=== PATIENT | male | born 1940 | race Caucasian/White ===

== ENCOUNTER → 2016-07-19 | Outpatient (CLI) | payer MEDICARE ==
[2016-07-19 10:42] LABS: Blood Urea Nitrogen 20 mg/dL (9-20); Non-African American GFR(MDRD) 58 (>60 ml/min/1.73 sqM)
--- NOTE | 2016-07-19 12:03 | CT ---
EXAMINATION TYPE: CT abdomen wo/w con DATE OF EXAM: 07/19/2016 11:24 AM COMPARISON: CT abdomen September 30, 2015. HISTORY: Patient has no complaints at time of study. Follow up study for known renal CA post ablatio n procedure. CT DLP: 1091.1 mGycm, Automated Exposure Control for Dose Reduction was Utilized. CONTRAST: CT scan of the abdomen is performed with oral and without and with IV Contrast, patient injected with 80 mL of Visipaque 320. FINDINGS: LUNG BASES: Degraded by motion artifact otherwise unremarkable. LIVER/GB: No significant abnormality is appreciated. PANCREAS: No significant abnormality is seen. SPLEEN: No significant abnormality is seen. ADRENALS: No significant abnormality is seen. KIDNEYS: There is stable 2 mm nonobstructing calculus lower pole level right kidney seen best on darrian nal image 97. Postcontrast images show corticomedullary uptake and excretion from both kidneys withou t evidence of hydronephrosis bilaterally. There are a few subcentimeter low dense lesions scattered t hroughout the left kidney felt stable presumed benign. At area of prior enhancing exophytic neoplasm there remains slightly more regular exophytic soft tissue measuring 2.3 x 2.0 cm on image 29 series 4 , no definitive enhancement is seen to suggest persistent vascular neoplasm. Findings are consistent with successful ablation response. Some nonenhanced or ischemic/infarcted cortex involving the lower pole of right kidney is noted. There is stable 1 cm simple appearing cyst superiorly anterior to this . BOWEL: No significant abnormality is seen. LYMPH NODES: No greater than 1cm abdominal lymph nodes are appreciated. OSSEOUS STRUCTURES: No significant abnormality is seen. OTHER: There is redemonstration of aortobiiliac graft partially imaged. There is redemonstration of [place] ventral wall hernia just left of midline on axial image 34 seri es 4 containing mesenteric fat felt stable. IMPRESSION: Interval ablation with persistent exophytic soft tissue lesion identified but no area of suspicious postcontrast enhancement to suggest residual vascular mass or neoplasm is consistent with successful ablation. Some adjacent cortical infarct is present as expected. No new mass or adenopathy is seen.
== END | disposition home or self-care (01) ==
LOC: RADCTMAIN 09:56
PROVIDERS: ATTEND Urology
DX: C64.1 Malignant neoplasm of right kidney, except renal pelvis (principal); Z98.890 Other specified postprocedural states
CPT/HCPCS: 82565; 84520; 74170; 36415; Q9967

== ENCOUNTER → 2016-10-19 | Outpatient (CLI) | payer MEDICARE ==
[2016-10-19 08:46] LABS: Blood Urea Nitrogen 19 mg/dL (9-20); Non-African American GFR(MDRD) >60 (>60 ml/min/1.73 sqM)
--- NOTE | 2016-10-19 09:33 | CT ---
EXAMINATION TYPE: CT abdomen wo/w con DATE OF EXAM: 10/19/2016 COMPARISON: CT abdomen September 18, 2016. HISTORY: Patient has no complaints at time of study. Follow up study for known renal mass. Patient has history of renal CA. Status post ablation. CT DLP: 1128 mGycm, Automated Exposure Control for Dose Reduction was Utilized. CONTRAST: CT scan of the abdomen is performed with oral and without and with IV Contrast, patient injected with 100 mL of Visipaque 320. FINDINGS: LUNG BASES: Mild bleb formation left lung base is present. LIVER/GB: No significant abnormality is appreciated. PANCREAS: No significant abnormality is seen. SPLEEN: No significant abnormality is seen. ADRENALS: No significant abnormality is seen. KIDNEYS: There is 2 mm nonobstructing calculus lower pole level right kidney on coronal image 63 nonc ontrast study redemonstrated. There is focal defect from ablation involving the posterior lower pole level right kidney. Lateral and inferior to this there is stable 2.3 x 2.0 cm heterogeneous hypodense nonenhancing exophytic lesion could reflect residual nonactive or treated tumor. There are additiona l subcentimeter low dense lesions scattered throughout both kidneys felt to reflect simple cysts. The re is symmetric cortical medullary uptake and excretion from both kidneys without evidence of hydrone phrosis bilaterally. There is stable right lower pole perinephric fat stranding. BOWEL: Normal-appearing appendix from cecum is seen. No suspicious small or large bowel dilatation is present. LYMPH NODES: No greater than 1cm abdominal lymph nodes are appreciated. OSSEOUS STRUCTURES: There is prominent multilevel lateral spurring in the right lower thoracic spine redemonstrated. OTHER: There is partial visualization of patent aortobiiliac graft. There is [place] ventral wall h ernia just left of midline containing fat and tiny mesenteric vessels extending anteriorly into the m id and right abdomen that is stable. IMPRESSION: Overall stable findings, ablation changes with scarring posterior lower pole level right kidney. Adjacent nonenhancing exophytic mass is consistent with successful ablation. No increasing si ze or enhancement is evident to suggest active or enlarging neoplasm.
== END | disposition home or self-care (01) ==
LOC: RADCTMAIN 07:44
PROVIDERS: ATTEND Urology
DX: C64.1 Malignant neoplasm of right kidney, except renal pelvis (principal); N28.89 Other specified disorders of kidney and ureter; Z98.890 Other specified postprocedural states
CPT/HCPCS: 82565; 84520; 74170; 36415; Q9967

== ENCOUNTER → 2018-01-31 | Outpatient (CLI) | payer MEDICARE ==
--- NOTE | 2018-01-31 13:58 | CT ---
EXAMINATION TYPE: CT abdomen wo/w con DATE OF EXAM: 01/31/2018 COMPARISON: 10/19/2016 INDICATION: malignant neoplasm of right kidney DLP: 935.5 mGycm, Automated exposure control for dose reduction was used. CONTRAST: 100 mL of Isovue 300. Study performed with Oral Contrast TECHNIQUE: Axial images were obtained from above the diaphragm to the pubic rami in the axial plane a t 5 mm thick sections. Reconstructed images are reviewed on the computer in the coronal plane. FINDINGS: Limited CT sections are obtained the lung bases. The lung bases are clear. CT ABDOMEN: There is a large anterior abdominal wall hernia containing mesenteric fat supra umbilical region with an opening 1.9 cm. Liver: Normal Spleen: Normal Pancreas: Normal Adrenal glands: The adrenal glands are normal. Gallbladder: Some layering sludge appears to be within the gallbladder. Kidneys: A low-density mass, some of which may contain fat type density, does not appear to be enhanc ing. Mass including the fat component measures 4.2 cm is at the posterior inferior right kidney. A 0. 2 cm nonobstructing calcification is at the inferior pole right kidney. No hydronephrosis is present . A 1.0 cm cyst measuring 6 Hounsfield units is within the posterior lateral left upper kidney. De layed images were obtained through the kidneys, which remain unremarkable. Aorta: Vascular calcification is within the aorta. There appears to be prior aneurysm repair with pa tent stents present. Inferior vena cava: Normal. Loops of bowel distended with oral contrast appear normal. Note is made of a normal appendix. IMPRESSIONS: 1. Mixed density structure extending from the inferior pole right kidney measures 4.2 cm in diameter . 2. Small nonobstructing renal stone inferior pole right kidney measuring 0.2 cm.
== END | disposition home or self-care (01) ==
LOC: RADCTMAIN 07:52
PROVIDERS: ATTEND Urology
DX: C64.1 Malignant neoplasm of right kidney, except renal pelvis (principal); N20.0 Calculus of kidney
CPT/HCPCS: 82565; 84520; 74170; 36415; Q9967

== ENCOUNTER → 2018-12-09 | Outpatient (CLI) | payer MEDICARE ==
--- NOTE | 2018-12-09 15:27 | CT ---
EXAMINATION TYPE: CT abdomen wo/w con DATE OF EXAM: 12/09/2018 COMPARISON: CT abdomen January 31, 2018 and older studies HISTORY: Renal cancer follow up. CT DLP: 887.5 mGycm, Automated Exposure Control for Dose Reduction was Utilized. CONTRAST: CT scan of the abdomen is performed with oral and without and with IV Contrast, patient injected with 80 mL of Isovue M300. FINDINGS: LUNG BASES: No significant abnormality is appreciated. LIVER/GB: Small dependent gallstones and/or gallbladder sludge remains present. PANCREAS: No significant abnormality is seen. SPLEEN: No significant abnormality is seen. ADRENALS: No significant abnormality is seen. KIDNEYS: Stable exophytic 4.3 cm ball-shaped lesion lower pole of the right kidney with fat and soft tissue density . This is at the site of prior neoplasm September 30, 2015. Stable 2 mm nonobstructing calcu dave lower pole of the right kidney coronal image 97. Stable subcentimeter lesion favor simple thin-wa lled cyst laterally in the mid to lower pole of the left kidney coronal image 82 confirm the axial im age 20 series 11. BOWEL: No significant abnormality is seen. PROSTATE/SEMINAL VESICLES: No gross abnormality seen. LYMPH NODES: No greater than 1cm abdominal or pelvic lymph nodes are appreciated. OSSEOUS STRUCTURES: No significant abnormality is seen. OTHER: There is redemonstration of aortobiiliac graft which appears patent. There is redemonstration of marked wall hernia containing fat and tiny mesenteric vessels axial image 35. IMPRESSION: Lower pole right kidney felt to reflect successfully treated neoplasm as the soft tissue component remains stable or diminished in size without suspicious enhancement since the postablation CT performed July 19, 2016. No new masses or hydronephrosis.
== END | disposition home or self-care (01) ==
LOC: RADCTMAIN 13:59
PROVIDERS: ATTEND Urology
DX: C64.1 Malignant neoplasm of right kidney, except renal pelvis (principal)
CPT/HCPCS: 82565; 84520; 74170; 36415; Q9967

== ENCOUNTER 2019-06-14 15:59 | Inpatient (IN) | payer MEDICARE ==
[2019-06-14] MEDS ORDERED: CALCIUM GLUCONATE 1 GM in SODIUM CHLORIDE 0.9% 100 ML IVPB STA (16:07)
[2019-06-14] MEDS ORDERED: ATROPINE SULFATE 0.1 MG/ML 10ML SYRINGE IV STA (16:08)
[2019-06-14] MEDS ORDERED: ATROPINE SULFATE 0.1 MG/ML 10ML SYRINGE ONE (16:09)
[2019-06-14 16:11] LABS: Glucose,Whole Blood 114 mg/dL (75-99)
[2019-06-14] MEDS ORDERED: DOPamine DRIP 800 MG in DEXTROSE/WATER 1 250ML.BAG IV ONE (16:27)
[2019-06-14] MEDS ORDERED: SODIUM CHLORIDE 0.9% 1,000 ML IV STA (16:28)
[2019-06-14 16:46] LABS: Basophils # (A) 0.2 k/uL (0-0.2); Basophils % (A) 1 %; Eosinophils # (A) 0.1 k/uL (0-0.7); Eosinophils % (A) 0 %; HCT 43.3 % (39.0-53.0); Lymphocytes # (A) 0.7 k/uL (1.0-4.8); Lymphocytes % (A) 4 %; MCH 35.1 pg (25.0-35.0); MCHC 32.4 g/dL (31.0-37.0); MCV 108.3 fL (80.0-100.0); Macrocytosis Moderate; Mean Platelet Volume 9.6; Monocytes # (A) 0.5 k/uL (0-1.0); Monocytes % (A) 3 %; Neutrophils # (A) 15.8 k/uL (1.3-7.7); Neutrophils % (A) 91 %; Platelet Count 172 k/uL (150-450); RBC 3.99 m/uL (4.30-5.90); RDW 12.7 % (11.5-15.5); WBC 17.4 k/uL (3.8-10.6)
[2019-06-14 16:47] LABS: Albumin 3.9 g/dL (3.5-5.0); Calcium 9.6 mg/dL (8.4-10.2); Magnesium 2.7 mg/dL (1.6-2.3); Potassium 5.1 mmol/L (3.5-5.1); Total Bilirubin 0.8 mg/dL (0.2-1.3)
--- NOTE | 2019-06-14 16:51 | ED ---
General Adult HPI - General Chief complaint: Shortness of Breath Stated complaint: SOB Source: EMS Mode of arrival: EMS Limitations: no limitations - History of Present Illness Initial comments: Dictation was produced using [employer] dictation software. please excuse any gramma tical, word or spelling errors. Chief Complaint: 79-year-old male past medical history of COPD and abdominal aortic aneurysm presents with shortness of breath and dizziness. History of Present Illness: Patient is 79-year-old male who presents today with feeling short of breath and dizzy. Patient states he feels "Punky." He reports that his symptoms have been ongoing for the last 2-3 days. He did see his primary care doctor and was discharged. Patient denies any pain symptoms. D enies any strokelike symptoms. As for short of breath. He reports he has a history of COPD and previous history of smoking. The ROS documented in this emergency department record has been reviewed and confirmed by me. Those systems with pertinent positive or negative responses have been documented in the HPI. All other systems are other negative and/or noncontributory. PHYSICAL EXAM: General Impression: Alert and oriented x3, pale HEENT: Normocephalic atraumatic, extra-ocular movements intact, pupils equal and reactive to light bilaterally, dry mucous membranes Cardiovascular: Heart regular rate and rhythm, S1&S2 audible, no murmurs, rubs or gallops Chest: Diffuse lung wheeze Abdomen: Bowel sounds present, abdomen soft, non-tender, non-distended, no organomegaly Musculoskeletal: Pulses present and equal in all extremities, weak and thready pulses, no peripheral edema Motor: no focal deficits noted Neurological: CN II-XII grossly intact, no focal motor or sensory deficits noted Skin: Intact with no visualized rashes Psych: Normal affect and mood ED course: 79-year-old male presents with generalized weakness. Vital signs upon arrival shows heart rate of 34, respiratory rate of 26. Blood pressure upon arrival taken in triage was 95/84. Patient was moved immediately into resuscitation bay. 2 large-bore IVs were placed. Patient was given supplemental oxygen in the form of 15 L nonrebreather. Physical examination showed bradycardic male with diffuse lung wheeze. [id number] bedside ultrasound showed signs of fluid overload. EKG was suggestive of complete heart block. Cardiac pads are placed. 2 large-bore IVs were placed. Patient was given some atropine and calcium gluconate. Cardiology was contacted immediately for emergent placement of pacemaker or IV pacing. Patient observed in emergency department resuscitation bay and found to have his heart rate transiently dipping down into 15 bpm. Discussed patient case with Dr. Charlton of cardiology who requested that patient be started on dopamine infusion. Ultrasound IV was placed and 18-gauge in the right upper extremity. She disposition to cardiac Toggler for further care and likely pacemaker versus transvenous pacemaker. Discussed patient care Dr. Hamilton of the ICU who requests that arterial blood gas be performed. Discussed patient case with [facility] physician group Dr. Tamayo who is willing to accept patients care.Laboratory evaluation obtained leukocytosis 17.4. Metabolic panel shows signs of acute kidney injury. This likely secondary to prerenal azotemia. Troponin elevated at 0.060. X-ray shows mild heart failure.f EKG interpretation: Third-degree heart block, with widened QRS - Related Data Allergies Allergy/AdvReac Type Severity Reaction Status Date / Time No Known Allergies Allergy Verified 06/14/19 16:00 Review of Systems ROS Statement: Those systems with pertinent positive or pertinent negative responses have been documented in the HPI. ROS Other: All systems not noted in ROS Statement are negative. Past Medical History Past Medical History: Unable to Obtain, COPD Additional Past Medical History / Comment(s): AAA History of Any Multi-Drug Resistant Organisms: None Reported Past Surgical History: Unable to Obtain, Joint Replacement Past Psychological History: No Psychological Hx Reported Smoking Status: Current every day smoker Past Alcohol Use History: None Reported Past Drug Use History: None Reported General Exam Limitations: no limitations Course Vital Signs 06/14/19 16:00 Temperature 98 F Pulse Rate 34 L Respiratory 26 H Rate Blood Pressure 95/84 Medical Decision Making - Lab Data Result diagrams: 06/14/19 16:14 06/14/19 16:14 Lab Results 06/14/19 06/14/19 06/14/19 Range/Units 16:08 16:14 16:14 WBC 17.4 H (3.8-10.6) k/uL RBC 3.99 L (4.30-5.90) m/uL Hgb 14.0 (13.0-17.5) gm/dL Hct 43.3 (39.0-53.0) % MCV 108.3 H (80.0-100.0) fL MCH 35.1 H (25.0-35.0) pg MCHC 32.4 (31.0-37.0) g/dL RDW 12.7 (11.5-15.5) % Plt Count 172 (150-450) k/uL Neutrophils % 91 % Lymphocytes % 4 % Monocytes % 3 % Eosinophils % 0 % Basophils % 1 % Neutrophils # 15.8 H (1.3-7.7) k/uL Lymphocytes # 0.7 L (1.0-4.8) k/uL Monocytes # 0.5 (0-1.0) k/uL Eosinophils # 0.1 (0-0.7) k/uL Basophils # 0.2 (0-0.2) k/uL Macrocytosis Moderate PT (9.0-12.0) sec INR (<1.2) APTT (22.0-30.0) sec Sodium 138 (137-145) mmol/L Potassium 5.1 (3.5-5.1) mmol/L Chloride 107 (98-107) mmol/L Carbon Dioxide 23 (22-30) mmol/L Anion Gap 8 mmol/L BUN 61 H (9-20) mg/dL Creatinine 1.34 H (0.66-1.25) mg/dL Est GFR (CKD-EPI)AfAm 59 (>60 ml/min/1.73 sqM) Est GFR (CKD-EPI)NonAf 51 (>60 ml/min/1.73 sqM) Glucose 136 H (74-99) mg/dL POC Glucose (mg/dL) 114 H (75-99) mg/dL POC Glu [employer] Architect ID Teodora Finley Calcium 9.6 (8.4-10.2) mg/dL Magnesium 2.7 H (1.6-2.3) mg/dL Total Bilirubin 0.8 (0.2-1.3) mg/dL AST 44 (17-59) U/L ALT 102 H (4-49) U/L Alkaline Phosphatase 91 (38-126) U/L Troponin I (0.000-0.034) ng/mL Total Protein 7.0 (6.3-8.2) g/dL Albumin 3.9 (3.5-5.0) g/dL TSH 2.110 (0.465-4.680) mIU/L 06/14/19 06/14/19 Range/Units 16:14 16:14 WBC (3.8-10.6) k/uL RBC (4.30-5.90) m/uL Hgb (13.0-17.5) gm/dL Hct (39.0-53.0) % MCV (80.0-100.0) fL MCH (25.0-35.0) pg MCHC (31.0-37.0) g/dL RDW (11.5-15.5) % Plt Count (150-450) k/uL Neutrophils % % Lymphocytes % % Monocytes % % Eosinophils % % Basophils % % Neutrophils # (1.3-7.7) k/uL Lymphocytes # (1.0-4.8) k/uL Monocytes # (0-1.0) k/uL Eosinophils # (0-0.7) k/uL Basophils # (0-0.2) k/uL Macrocytosis PT 10.3 (9.0-12.0) sec INR 1.0 (<1.2) APTT 22.3 (22.0-30.0) sec Sodium (137-145) mmol/L Potassium (3.5-5.1) mmol/L Chloride (98-107) mmol/L Carbon Dioxide (22-30) mmol/L Anion Gap mmol/L BUN (9-20) mg/dL Creatinine (0.66-1.25) mg/dL Est GFR (CKD-EPI)AfAm (>60 ml/min/1.73 sqM) Est GFR (CKD-EPI)NonAf (>60 ml/min/1.73 sqM) Glucose (74-99) mg/dL POC Glucose (mg/dL) (75-99) mg/dL POC Glu [employer] Architect ID Calcium (8.4-10.2) mg/dL Magnesium (1.6-2.3) mg/dL Total Bilirubin (0.2-1.3) mg/dL AST (17-59) U/L ALT (4-49) U/L Alkaline Phosphatase (38-126) U/L Troponin I 0.060 H* (0.000-0.034) ng/mL Total Protein (6.3-8.2) g/dL Albumin (3.5-5.0) g/dL TSH (0.465-4.680) mIU/L Critical Care Time Critical Care Time: Yes (31) Disposition Clinical Impression: Heart block Disposition: ADMITTED IP TO THIS HOSP Condition: Critical Referrals: Roge Casarez MD [Primary Care Provider] - 1-2 days Time of Disposition: 17:29
[2019-06-14] MEDS ORDERED: NALOXONE 0.4 MG/ML 1 ML VIAL IV PRN (17:09)
[2019-06-14 17:13] LABS: Partial Thromboplastin Time 22.3 sec (22.0-30.0); Prothrombin Time 10.3 sec (9.0-12.0)
--- NOTE | 2019-06-14 17:14 | XR ---
EXAMINATION TYPE: XR chest 1V portable DATE OF EXAM: 06/14/2019 COMPARISON: 10/24/2011 HISTORY: Dysrhythmia TECHNIQUE: FINDINGS: Heart appears slightly enlarged. There is some coarse interstitial infiltrate throughout th e lungs. Pulmonary vascularity is difficult to evaluate because of the lung disease. There is slight blunting of the right costophrenic angle. IMPRESSION: Interstitial fibrotic changes. Small right pleural effusion. Mild heart failure is possib le. Pulmonary abnormalities are new compared to old exam.
[2019-06-14] MEDS ORDERED: SODIUM CHLORIDE 0.9% 1,000 ML IV SCH (17:15)
[2019-06-14] MEDS ORDERED: IV FLUID CONTINUATION 1,000 ML IV ONE (17:30)
[2019-06-14] MEDS ORDERED: FUROSEMIDE 10 MG/ML 4 ML VIAL ONE (17:30)
[2019-06-14] MEDS ORDERED: LIDOCAINE 1% INJ 10MG/ML (20 ML MDV) SQ ONE (17:31)
[2019-06-14] MEDS ORDERED: FUROSEMIDE 10 MG/ML 4 ML VIAL IV ONE (17:33)
[2019-06-14] MEDS ORDERED: ACETAMINOPHEN TAB 325 MG TAB PO PRN (17:42)
[2019-06-14] MEDS ORDERED: MIDAZOLAM 2 MG/2 ML VIAL IV ONE (17:45)
[2019-06-14 18:32] LABS: Glucose,Whole Blood 120 mg/dL (75-99)
--- NOTE | 2019-06-14 21:39 | P.HPIM ---
History of Present Illness H&P Date: 06/14/19 Chief Complaint: dizziness and SOB of 2-3 days duration 79 year old male with COPD well controlled, and AAA, denies any cardiac history patient comes in with with 2-3 day history of feeling dizzy adn SOB with mild exertion , he went to his PCP for evaluation 2 days ago . and was given treatment for COPD exacerbation . he does not recall any comment about abnormal vital signs . HOwever, not much improvement in his symptoms. patient comes in to the ED due to worsening dizziness and shortness of breath, no fever, no chills, no chest pain . he was found to be hypotensive and bradycardiac. while being monitored awaiting cardio eval, his heart rate dropped to 15 bpm, and his EKG showed complete heart block. he was rushed to the OR for transvenous pacing and was started on dopamine per cardio recs until the procedure. no electrolyte abnormalities noted, except for elevated creatinine. CXR suggested some mild congestive heart failure chages patient seen post operatively , doing well, denies any SOB or dizziness at this time . Review of Systems Pertinent positives as noted in HPI. All other systems were reviewed and are ne gative Past Medical History Past Medical History: COPD Additional Past Medical History / Comment(s): AAA History of Any Multi-Drug Resistant Organisms: None Reported Past Surgical History: Joint Replacement Past Psychological History: No Psychological Hx Reported Smoking Status: Current every day smoker Past Alcohol Use History: None Reported Past Drug Use History: None Reported - Past Family History family Family Medical History: No Reported History Medications and Allergies Home Medications and Allergies Comment(s): amlodipine flomax breathing treatment Allergies Allergy/AdvReac Type Severity Reaction Status Date / Time No Known Allergies Allergy Verified 06/14/19 18:03 Physical Exam Vitals: Vital Signs Temp Pulse Pulse Resp BP BP Pulse Ox 06/14/19 18:28 60 14 91 L 06/14/19 18:13 97.7 F 60 14 184/74 97 06/14/19 17:35 34 L 20 150/93 87 L 06/14/19 16:45 34 L 18 149/61 87 L 06/14/19 16:30 34 L 18 183/65 85 L 06/14/19 16:00 98 F 34 L 26 H 95/84 Intake and Output 06/14/19 06/14/19 06/14/19 06:59 14:59 22:59 Intake Total 50 Balance 50 Intake: IV 50 Other: Weight 79.379 kg Constitutional: No acute distress, conversant, pleasant Eyes: Anicteric sclerae, moist conjunctiva, no lid-lag Pupils equal round reactive to light ENMT: NC/AT Oropharynx clear, no erythema, exudates Neck: Supple, FROM, no masses, or JVD No carotid bruits No thyromegaly Lungs: Clear to auscultation Clear to percussion Normal respiratory effort, no accessory muscle use Cardiovascular: Heart regular in rate and rhythm, No murmurs, gallops, or rubs No peripheral edema Abdominal: Soft Nontender, no guarding, rebound or rigidity Abdomen moving with respiration Normoactive bowel sounds No hepatomegaly, No splenomegaly No palpable mass No abdominal wall hernia noted Skin: Normal temperature, tone, texture, turgor No induration No subcutaneous nodules No rash, lesions No ulcers Extremities: No digital cyanosis No clubbing Pedal pulses intact and symmetrical Radial pulses intact and symmetrical No calf tenderness Psychiatric: Alert and oriented to person, place and time Appropriate affect fair judgement Neuro Muscles Strength 5/5 in all 4 extremities Sensation to light touch grossly present throughout Cranial nerves II-XII grossly intact No focal sensory deficits Lymphatics: no palpable cervical or supraclavicular , or inguinal lymph nodes mejia cath in place, urine unremarkable transvenous pacing Results CBC & Chem 7: 06/14/19 16:14 06/14/19 16:14 Labs: Abnormal Lab Results - Last 24 Hours (Table) 06/14/19 06/14/19 06/14/19 Range/Units 16:08 16:14 16:14 WBC 17.4 H (3.8-10.6) k/uL RBC 3.99 L (4.30-5.90) m/uL MCV 108.3 H (80.0-100.0) fL MCH 35.1 H (25.0-35.0) pg Neutrophils # 15.8 H (1.3-7.7) k/uL Lymphocytes # 0.7 L (1.0-4.8) k/uL BUN 61 H (9-20) mg/dL Creatinine 1.34 H (0.66-1.25) mg/dL Glucose 136 H (74-99) mg/dL POC Glucose (mg/dL) 114 H (75-99) mg/dL Magnesium 2.7 H (1.6-2.3) mg/dL ALT 102 H (4-49) U/L Troponin I (0.000-0.034) ng/mL 06/14/19 06/14/19 Range/Units 16:14 18:29 WBC (3.8-10.6) k/uL RBC (4.30-5.90) m/uL MCV (80.0-100.0) fL MCH (25.0-35.0) pg Neutrophils # (1.3-7.7) k/uL Lymphocytes # (1.0-4.8) k/uL BUN (9-20) mg/dL Creatinine (0.66-1.25) mg/dL Glucose (74-99) mg/dL POC Glucose (mg/dL) 120 H (75-99) mg/dL Magnesium (1.6-2.3) mg/dL ALT (4-49) U/L Troponin I 0.060 H* (0.000-0.034) ng/mL Assessment and Plan Assessment: 79 year old male with AAA, and COPD. comes in due to dizziness and SOB of 2-3 days long. found to have complete heart block, rushed to label maker for pacemaker insertion. Plan: complete heart block s/p transvenous pacing insertion admitted to ICU close monitoring cardiology following follow up electrolytes and replace as needed pain control check for lyme disease Acute kidney injury 2/2 prerenal azotemia from decreased effective arterial circulation secondary to above IVF hydration avoid nephrotoxic meds follow up renal function macrocytosis with no anemia OP follow up DVT PPX heparin sc tid CODE STATUS:full code Discussed with: Patient, ER, RN Anticipated length of stay < than [address]: home A total of 60 minutes was spent on the care of this complex patient more than 50% of the time was spent in counseling and care coordination.
[2019-06-14 21:46] LABS: ABG Base Excess 5.1 mmol/L; ABG HCO3 29 mmol/L (21-25); ABG Oxygen Saturation 90.3 % (94-97); ABG PCO2 42 mmHg (35-45); ABG PH 7.45 (7.35-7.45); ABG PO2 60 mmHg (83-108); ABG TCO2 30 mmol/L (19-24); Allen Test Performed? Yes
[2019-06-14] MEDS ORDERED: FUROSEMIDE 10 MG/ML 4 ML VIAL IV STA (22:51)
--- NOTE | 2019-06-14 23:10 | CONS ---
CONSULTATION CHIEF COMPLAINT: Complete heart block. This is a pleasant 79-year-old gentleman who presented to hospital complaining of shortness of breath, fatigue and tiredness. He was found to be in complete heart block and Cardiology has been consulted for the same. I advised the patient to undergo an emergent temporary transvenous pacemaker. I am seeing the patient for the 1st time in the biological lab technician. He appears alert, stable hemodynamically, but his heart rates are only in the 20s. He has an external pacemaker which seems to be functioning. There is no history of coronary artery disease or congestive heart failure. There is no prior history of atrial fibrillation. There is history of abdominal aortic aneurysm for which he underwent surgery. PAST MEDICAL HISTORY: Significant for hypertension, dyslipidemia, abdominal aortic aneurysm status post repair. MEDICATIONS: Are as charted. ALLERGIES: Are as charted. FAMILY HISTORY: Negative for premature coronary artery disease. SOCIAL HISTORY: He denies smoking, ETOH abuse or drug abuse. REVIEW OF SYSTEMS: HEENT is unremarkable. Cardiac as described above. Respiratory negative. GI negative. GENITOURINARY negative. Allergy/Immunology: None. Skin negative. Musculoskeletal significant for arthritis. Psychosocial negative. Endocrine None. Hematological negative. CONSTITUTIONAL: Negative. Oncological negative. EXAM: Comfortable at rest. Heart rate is 30 beats per minute. There is no jugular venous distention. Chest exam reveals good air entry bilaterally. Heart exam reveals first and second heart sounds. No gallop. No murmur. Abdomen is soft. Exam of extremities revealed mild edema bilaterally. LABORATORY DATA: Labs are pending. ASSESSMENT: Complete heart block. PLAN: The patient will undergo emergent temporary transvenous pacemaker. MMODL / IJN: [id number] /
--- NOTE | 2019-06-14 23:17 | PCN ---
PROCEDURE NOTE TEMPORARY TRANSVENOUS PACEMAKER: INDICATION: Complete heart block. PROCEDURE NOTE: After obtaining informed consent, temporary transvenous pacemaker was performed via the right femoral vein. Vascular access was obtained using modified Seldinger technique. A temporary transvenous pacemaker was floated under fluoroscopic guidance into the right ventricle. Adequate pacing and sensing thresholds were obtained. The patient tolerated the procedure well without any obvious immediate complications. The patient sedation time was 9 minutes. If the patient does not improve, he will undergo permanent pacemaker probably on Sunday. MMODL / IJN: [id number] /
[2019-06-15] MEDS: HEPARIN SODIUM,PORCINE 5,000 UNIT/ML 1 ML VIAL SQ SCH ×4 (00:45→23:58)
[2019-06-15 05:33] LABS: Potassium 4.5 mmol/L (3.5-5.1)
[2019-06-15 07:13] LABS: HCT 39.9 % (39.0-53.0); MCH 34.8 pg (25.0-35.0); MCHC 32.5 g/dL (31.0-37.0); MCV 107.2 fL (80.0-100.0); Macrocytosis Moderate; Mean Platelet Volume 9.6; Platelet Count 147 k/uL (150-450); RBC 3.72 m/uL (4.30-5.90); RDW 12.7 % (11.5-15.5); WBC 13.3 k/uL (3.8-10.6)
[2019-06-15 07:16] LABS: Calcium 9.1 mg/dL (8.4-10.2)
[2019-06-15] MEDS: SYMBICORT 160-4.5 MCG INHALER INHALATION SCH ×2 (08:44→20:12)
[2019-06-15] MEDS: IPRATROPIUM-ALBUTEROL 3 ML NEB INHALATION SCH ×4 (08:44→20:12)
[2019-06-15] MEDS ORDERED: FUROSEMIDE 10 MG/ML 2 ML VIAL IV STA (09:45)
--- NOTE | 2019-06-15 09:45 | XR ---
EXAMINATION TYPE: XR chest 1V DATE OF EXAM: 06/15/2019 HISTORY: evaluate. REFERENCE: Previous study dated 06/14/2019. FINDINGS: Lungs are overinflated. The heart is mildly prominent. There is some vascular congestion an d mild edema. The overall appearance has improved slightly. IMPRESSION: IMPROVING CHANGES OF PULMONARY EDEMA.
[2019-06-15] MEDS: TAMSULOSIN 0.4 MG CAP.ER.24H PO SCH (09:49)
[2019-06-15] MEDS: amLODIPine 10 MG TAB PO SCH (09:50)
[2019-06-15] MEDS: SODIUM CHLORIDE 0.9% 1,000 ML IV SCH ×2 (10:00→14:34)
--- NOTE | 2019-06-15 10:59 | P.PN ---
Subjective Progress Note Date: 06/15/19 79 year old male with COPD well controlled, and AAA, who comes in with with 2-3 day history of feeling dizzy and SOB with mild exertion, he was seen by his PCP couple days ago and at nebulize treatment were initiated with no mention of his heart rate. But similar condition patient came to the emergency room and while being monitored awaiting cardio eval, his heart rate dropped to 15 bpm, and his EKG showed complete heart block. he was rushed to the OR for transvenous pacing and was started on dopamine per cardio recs until the procedure, no electrolyte abnormalities noted, except for elevated creatinine. CXR suggested some mild congestive heart failure chages, post operatively patient was doing well, denies any SOB or dizziness at this time and had good night sleep. Patient denies chest pain, palpitation, headache, dizziness, nausea, vomiting, fever, chills and denies rest of the review system. Patient chest x-ray was repeated today which showed improving pulmonary congestion and edema. Patient white count was improving. Renal function and was also noted to be improving. Patient was noted to have the slight elevation of troponins and per cardiology no further treatment or monitoring for troponemia was suggested. Objective - Vital Signs Vital signs: Vital Signs Temp 98.5 F 06/15/19 08:00 Pulse 61 06/15/19 10:00 Resp 11 L 06/15/19 10:00 BP 116/91 06/15/19 10:00 Pulse Ox 93 L 06/15/19 10:00 Intake & Output 06/14/19 06/15/19 06/15/19 18:59 06:59 18:59 Intake Total 50 240 20 Output Total 2240 110 Balance Weight 79.379 kg 89.1 kg Intake: IV 50 Intake, IV Titration 240 20 Amount Sodium Chloride 0.9% 1, 240 20 000 ml @ 20 mls/hr IV . Q24H [facility] Rx#:[id number] Output: Urine 2240 110 Other: Voiding Method Indwelling Catheter - Constitutional General appearance: Present: cooperative, no acute distress - EENT Eyes: Present: EOMI, normal appearance ENT: Present: hearing grossly normal, NA/AT - Respiratory Respiratory: bilateral: diminished, wheezing, negative: dullness, rales, rhonchi - Cardiovascular Rhythm: regular Heart sounds: normal: S1, S2 Abnormal Heart Sounds: Absent: systolic murmur, diastolic murmur, S3 Gallop, S4 Gallop - Gastrointestinal General gastrointestinal: Present: normal bowel sounds, soft. Absent: distended, rigid, tenderness - Neurologic Neurologic: Present: CNII-XII intact. Absent: focal deficits - Psychiatric Psychiatric: Present: A&O x's 3, appropriate affect, intact judgment & insight - Allied health notes Allied health notes reviewed: nursing - Labs CBC & Chem 7: 06/15/19 04:50 06/15/19 04:50 Labs: Abnormal Lab Results - Last 24 Hours (Table) 06/14/19 06/14/19 06/14/19 Range/Units 16:08 16:14 16:14 WBC 17.4 H (3.8-10.6) k/uL RBC 3.99 L (4.30-5.90) m/uL MCV 108.3 H (80.0-100.0) fL MCH 35.1 H (25.0-35.0) pg Plt Count (150-450) k/uL Neutrophils # 15.8 H (1.3-7.7) k/uL Lymphocytes # 0.7 L (1.0-4.8) k/uL ABG pO2 (83-108) mmHg ABG HCO3 (21-25) mmol/L ABG Total CO2 (19-24) mmol/L ABG O2 Saturation (94-97) % BUN 61 H (9-20) mg/dL Creatinine 1.34 H (0.66-1.25) mg/dL Glucose 136 H (74-99) mg/dL POC Glucose (mg/dL) 114 H (75-99) mg/dL Magnesium 2.7 H (1.6-2.3) mg/dL ALT 102 H (4-49) U/L Troponin I (0.000-0.034) ng/mL 06/14/19 06/14/19 06/14/19 Range/Units 16:14 18:29 21:35 WBC (3.8-10.6) k/uL RBC (4.30-5.90) m/uL MCV (80.0-100.0) fL MCH (25.0-35.0) pg Plt Count (150-450) k/uL Neutrophils # (1.3-7.7) k/uL Lymphocytes # (1.0-4.8) k/uL ABG pO2 (83-108) mmHg ABG HCO3 (21-25) mmol/L ABG Total CO2 (19-24) mmol/L ABG O2 Saturation (94-97) % BUN (9-20) mg/dL Creatinine (0.66-1.25) mg/dL Glucose (74-99) mg/dL POC Glucose (mg/dL) 120 H (75-99) mg/dL Magnesium (1.6-2.3) mg/dL ALT (4-49) U/L Troponin I 0.060 H* 0.092 H* (0.000-0.034) ng/mL 06/14/19 06/15/19 06/15/19 Range/Units 21:45 04:50 04:50 WBC 13.3 H (3.8-10.6) k/uL RBC 3.72 L (4.30-5.90) m/uL MCV 107.2 H (80.0-100.0) fL MCH (25.0-35.0) pg Plt Count 147 L (150-450) k/uL Neutrophils # (1.3-7.7) k/uL Lymphocytes # (1.0-4.8) k/uL ABG pO2 60 L (83-108) mmHg ABG HCO3 29 H (21-25) mmol/L ABG Total CO2 30 H (19-24) mmol/L ABG O2 Saturation 90.3 L (94-97) % BUN 54 H (9-20) mg/dL Creatinine (0.66-1.25) mg/dL Glucose (74-99) mg/dL POC Glucose (mg/dL) (75-99) mg/dL Magnesium (1.6-2.3) mg/dL ALT (4-49) U/L Troponin I (0.000-0.034) ng/mL - Imaging and Cardiology Chest x-ray: report reviewed Assessment and Plan Plan: Complete Heart Block s/p transvenous pacing insertion - PPP placement in next 24-48 hours - Electrolytes and replace as needed Troponemia v/s NSTEMI - Cardiology is aware of and suggest no more f/u on troponin - Possible type II NSTEMI from Heart block or pacer placement - Clinically no S/S of ACS Acute kidney injury 2/2 prerenal azotemia from decreased effective arterial circulation secondary to above - IVF hydration - Avoid nephrotoxic meds - Follow up renal function s improving Mild Pulmonary Edema - F/U CXR reported as improving pulmonary edema, most likely from improving cardiac output from better heart rate. COPD - Continue HHN as at home macrocytosis with no anemia - OP follow up with PCP is recommended DVT PPX - Heparin s/c tid CODE STATUS:full code Discussed with: Patient, RN Anticipated length of stay < than [address]: home in next 24 hours if remains stable Time with Patient: Less than 30
--- NOTE | 2019-06-15 12:44 | PN ---
PROGRESS NOTE 79-year-old gentleman that is admitted to hospital with complete heart block and had a temporary transvenous pacemaker. This morning, he remains fully paced and remains in complete heart block, hemodynamically stable and free of symptoms. He has COPD and is coughing and he will receive a dose of Lasix. On exam, patient is comfortable at rest. Vital signs are stable. Chest exam reveals bilateral rhonchi. Heart exam reveals first and second heart sounds. No gallop. No rub. Abdomen is soft. Exam of extremities did not reveal any edema. The pacer site looks. I tested the pacemaker. It is functioning normally. I will obtain a chest x-ray on him. Labs showed that the hemoglobin is 13, BUN is 54, creatinine is 1.1. Troponin is 0.06 and 0.09, probably from the bradycardia and supply demand mismatch. ASSESSMENT: 1. Complete heart block status post temporary pacemaker. 2. Renal insufficiency, probably secondary to the hypovolemia, intravascular volume depletion. 3. Elevated troponin, probably related to supply demand mismatch. PLAN: Patient will undergo an echocardiogram tomorrow morning and will have a permanent pacemaker. MMODL / IJN: [id number] /
--- NOTE | 2019-06-15 14:56 | P.CNPUL ---
History of Present Illness Consult date: 06/15/19 Requesting physician: Ahmet Paulino Reason for consult: other (ICU management.) Chief complaint: Dizziness and shortness of breath History of present illness: This is a 79-year-old white male with history of multiple medical problems including chronic obstructive pulmonary disease which is basically well- controlled, abdominal aortic aneurysm, presented to the ER last night with 2-3 days history of shortness of breath and feeling dizzy. Patient had no chest pain, no fever, no chills, no hemoptysis, no headache, no blurred vision. Patient was worked up in the ER, and he was found to have a complete heart block. Cardiology was consulted, and the patient was taken to the cardiac catheterization lab, underwent temporary transvenous pacemaker implantation through the right femoral vein. Patient was sent to the ICU, I was notified about the patient having shortness of breath, and I reviewed a chest x-ray which showed evidence of interstitial edema. Recommended Lasix 40 mg IV push, and I saw him again today, recommended Lasix again chest x-ray did show improvement compared to yesterday. Patient is breathing easier today, less shortness of breath, hardly any cough, no wheezing, no chest pain. Patient is paced, his rate is set at 60 bpm. Review of Systems Constitutional: Negative. Denies any fever, denies any weight loss HEENT: Negative. Pulmonary: History of chronic shortness of breath secondary to underlying COPD occasional cough and wheezing. Cardiac: As noted in HPI. GI: Denies any nausea vomiting abdominal pain melena or hematemesis. Genitourinary: No dysuria frequency urgency or hematuria. Skin negative Hematologic: Denies any clotting bleeding or bruising Psychiatric: Denies any symptoms of active depression Neurologic: Denies any headache blurred vision or dizziness. Musculoskeletal: Denies any weakness or deformities or limitation of range of motion. Endocrine: Denies any heat or cold intolerance. Past Medical History Past Medical History: COPD Additional Past Medical History / Comment(s): AAA History of Any Multi-Drug Resistant Organisms: None Reported Past Surgical History: Joint Replacement Past Psychological History: No Psychological Hx Reported Smoking Status: Current every day smoker Past Alcohol Use History: None Reported Past Drug Use History: None Reported - Past Family History family Family Medical History: No Reported History Medications and Allergies Allergies Allergy/AdvReac Type Severity Reaction Status Date / Time No Known Allergies Allergy Verified 06/14/19 18:03 Physical Exam Vitals: Vital Signs Temp Pulse Pulse Resp BP BP Pulse Ox 06/15/19 14:00 60 15 134/48 93 L 06/15/19 13:00 60 10 L 139/55 94 L 06/15/19 12:16 60 06/15/19 12:09 60 06/15/19 12:00 98.1 F 60 60 9 L 142/53 96 06/15/19 11:00 60 12 120/72 97 06/15/19 10:00 61 11 L 116/91 93 L 06/15/19 09:00 59 L 18 115/82 93 L 06/15/19 08:45 60 06/15/19 08:00 98.5 F 59 L 60 14 160/58 95 06/15/19 07:00 60 14 148/60 95 06/15/19 06:00 60 15 155/58 95 06/15/19 05:09 60 17 145/51 95 06/15/19 05:00 59 L 18 145/51 94 L 06/15/19 04:00 98.0 F 60 60 18 146/67 95 06/15/19 03:00 60 12 161/56 94 L 06/15/19 02:00 60 14 154/71 96 06/15/19 01:30 60 14 158/67 96 06/15/19 01:00 60 15 159/66 95 06/15/19 00:30 59 L 17 159/66 95 06/15/19 00:00 98.0 F 60 60 18 158/63 96 06/14/19 23:30 59 L 14 156/68 95 06/14/19 23:00 60 12 156/72 94 L 06/14/19 22:30 60 13 160/68 93 L 06/14/19 22:00 60 18 160/68 94 L 06/14/19 21:30 60 19 158/60 94 L 06/14/19 21:28 60 16 158/70 95 06/14/19 21:00 62 18 146/76 95 06/14/19 20:30 62 18 113/55 94 L 06/14/19 20:28 60 18 94 L 06/14/19 20:01 60 19 183/76 92 L 06/14/19 20:00 60 06/14/19 19:30 60 24 168/95 94 L 06/14/19 19:28 60 18 163/72 93 L 06/14/19 19:15 60 10 L 206/78 92 L 06/14/19 19:01 60 21 182/70 89 L 06/14/19 18:58 60 16 168/95 89 L 06/14/19 18:45 59 L 18 184/74 90 L 06/14/19 18:30 60 10 L 183/83 06/14/19 18:28 60 14 91 L 06/14/19 18:22 96 06/14/19 18:13 97.7 F 60 14 184/74 97 06/14/19 17:35 34 L 20 150/93 87 L 06/14/19 16:45 34 L 18 149/61 87 L 06/14/19 16:30 34 L 18 183/65 85 L 06/14/19 16:00 98 F 34 L 26 H 95/84 Intake and Output 06/14/19 06/15/19 06/15/19 22:59 06:59 14:59 Intake Total 130 160 850 Output Total 660 1580 1185 Balance -530 1420 -335 Intake: IV 50 Intake, IV Titration 80 160 370 Amount Sodium Chloride 0.9% 1, 80 160 20 000 ml @ 10 mls/hr IV . Q24H [facility] Rx#:[id number] ceFAZolin 2 gm In Sodium 350 Chloride 0.9% 50 ml @ 100 mls/hr IVPB ONCE ONE Rx# :[id number] Oral 480 Output: Urine 660 1580 1185 Other: Voiding Method Indwelling Catheter Indwelling Catheter Indwelling Catheter Weight 79.379 kg 89.1 kg Physical Exam: Revealed 79-year-old white male in no distress. Head: Atraumatic normocephalic. HEENT:[Neck is supple.] [No neck masses.] [No thyromegaly.] [No JVD.] PERRLA, EOMI, no icterus. Chest: [Symmetrical chest expansion, crackles at the bases. No rhonchi no wheezes..] Cardiac Exam: Distant S1 and S2, no S3 gallop. No murmur.] Abdomen: [Soft, nontender, no megaly, no rebound, no guarding, normal bowel sounds.] Extremities: [No clubbing, no edema, no cyanosis.] Good pulses bilaterally. Neurological Exam: [No focal neurologic deficit. Skin: No rashes. Psychiatric: Normal mood affect and normal mental status examination. Musculoskeletal: No limitation in range of motion, no deformities. Results - Laboratory Findings CBC and BMP: 06/15/19 04:50 06/15/19 04:50 ABG ABG pH 7.45 (7.35-7.45) 06/14/19 21:45 ABG pCO2 42 mmHg (35-45) 06/14/19 21:45 ABG pO2 60 mmHg (83-108) L 06/14/19 21:45 ABG O2 Saturation 90.3 % (94-97) L 06/14/19 21:45 PT/INR, D-dimer PT 10.3 sec (9.0-12.0) 06/14/19 16:14 INR 1.0 (<1.2) 06/14/19 16:14 Abnormal lab findings: Abnormal Labs 06/14/19 06/14/19 06/14/19 16:08 16:14 16:14 WBC 17.4 H RBC 3.99 L MCV 108.3 H MCH 35.1 H Plt Count Neutrophils # 15.8 H Lymphocytes # 0.7 L ABG pO2 ABG HCO3 ABG Total CO2 ABG O2 Saturation BUN 61 H Creatinine 1.34 H Glucose 136 H POC Glucose (mg/dL) 114 H Magnesium 2.7 H ALT 102 H Troponin I 06/14/19 06/14/19 06/14/19 16:14 18:29 21:35 WBC RBC MCV MCH Plt Count Neutrophils # Lymphocytes # ABG pO2 ABG HCO3 ABG Total CO2 ABG O2 Saturation BUN Creatinine Glucose POC Glucose (mg/dL) 120 H Magnesium ALT Troponin I 0.060 H* 0.092 H* 06/14/19 06/15/19 06/15/19 21:45 04:50 04:50 WBC 13.3 H RBC 3.72 L MCV 107.2 H MCH Plt Count 147 L Neutrophils # Lymphocytes # ABG pO2 60 L ABG HCO3 29 H ABG Total CO2 30 H ABG O2 Saturation 90.3 L BUN 54 H Creatinine Glucose POC Glucose (mg/dL) Magnesium ALT Troponin I - Diagnostic Findings Chest x-ray: image reviewed (As noted in HPI, consistent with mild congestive heart failure) Assessment and Plan Assessment: Impression: Complete heart block, status post temporary transvenous pacemaker implantation. Acute pulmonary edema, congestive heart failure, most likely secondary to complete heart block. It is not clear whether this is systolic or diastolic. Echocardiogram is pending. Elevated troponin, most likely secondary to troponin leak secondary to complete heart block, being addressed by cardiology. Acute kidney injury, acute tubular necrosis secondary to complete heart block. And possibly some component of hypotension on presentation. History of chronic obstructive pulmonary disease, will resume his bronchodilators. Presently inactive. History of abdominal aortic aneurysm. Recommendation: Agree with the present treatment plan including temporary transvenous pacing. Patient will likely require permanent pacemaker implantation tomorrow. Continue diuretics for his pulmonary edema, patient is improving steadily. Resume home bronchodilators for COPD. GI and DVT prophylaxis. Continue to monitor in the ICU for the next 24 hours, and possibly transferred to a monitor bed on selective tomorrow. We'll continue to follow. Time with Patient: Greater than 30
[2019-06-15] MEDS: ATORVASTATIN 40 MG TAB PO SCH (21:02)
[2019-06-15] MEDS: MONTELUKAST 10 MG TAB PO SCH (21:02)
[2019-06-16] MEDS: HEPARIN SODIUM,PORCINE 5,000 UNIT/ML 1 ML VIAL SQ SCH ×3 (05:19→23:24)
[2019-06-16] MEDS: TAMSULOSIN 0.4 MG CAP.ER.24H PO SCH (05:19)
[2019-06-16] MEDS: amLODIPine 10 MG TAB PO SCH (05:19)
[2019-06-16] MEDS: SODIUM CHLORIDE 0.9% 1,000 ML IV SCH ×2 (05:21→05:28)
[2019-06-16] MEDS: VIT A,C & E-LUTEIN-MINERALS 1 EACH TAB PO SCH (05:23)
[2019-06-16 05:27] LABS: Glucose,Whole Blood 99 mg/dL (75-99)
[2019-06-16 05:46] LABS: African American GFR (CKD) >90 (>60 ml/min/1.73 sqM); Anion Gap 5 mmol/L; Blood Urea Nitrogen 40 mg/dL (9-20); Calcium 8.5 mg/dL (8.4-10.2); Carbon Dioxide 23 mmol/L (22-30); Chloride 107 mmol/L (98-107); Glucose 90 mg/dL (74-99); Non-African American GFR(CKD) 83 (>60 ml/min/1.73 sqM); Sodium 135 mmol/L (137-145)
[2019-06-16] MEDS ORDERED: ceFAZolin 1,000 MG in SODIUM CHLORIDE 0.9% IRRIGATIO 250 ML IRRIGATION ONE (06:00)
[2019-06-16 06:13] LABS: Potassium 4.8 mmol/L (3.5-5.1)
[2019-06-16] MEDS: IPRATROPIUM-ALBUTEROL 3 ML NEB INHALATION SCH ×4 (07:29→20:30)
[2019-06-16] MEDS: SYMBICORT 160-4.5 MCG INHALER INHALATION SCH (07:29)
[2019-06-16] MEDS ORDERED: FUROSEMIDE 10 MG/ML 4 ML VIAL IV STA (10:11)
--- NOTE | 2019-06-16 10:14 | P.PN ---
Subjective Progress Note Date: 06/16/19 Principal diagnosis: Dizziness, shortness of breath secondary to complete heart block This is a 79-year-old white male with history of multiple medical problems including chronic obstructive pulmonary disease which is basically well- controlled, abdominal aortic aneurysm, presented to the ER last night with 2-3 days history of shortness of breath and feeling dizzy. Patient had no chest pain, no fever, no chills, no hemoptysis, no headache, no blurred vision. Patient was worked up in the ER, and he was found to have a complete heart block. Cardiology was consulted, and the patient was taken to the cardiac catheterization lab, underwent temporary transvenous pacemaker implantation through the right femoral vein. Patient was sent to the ICU, I was notified about the patient having shortness of breath, and I reviewed a chest x-ray which showed evidence of interstitial edema. Recommended Lasix 40 mg IV push, and I saw him again today, recommended Lasix again chest x-ray did show improvement compared to yesterday. Patient is breathing easier today, less shortness of breath, hardly any cough, no wheezing, no chest pain. Patient is paced, his rate is set at 60 bpm. The patient is seen today 06/16/2019 in follow-up in the intensive care unit. He is currently awake and alert in no acute distress. He is still in complete heart block. Temporary venous pacer is in place. The plan is for permanent pacemaker today. Chest x-ray shows evidence of fluid volume overload and congestive heart failure. Echocardiogram is pending. He is also somewhat bronchospastic and wheezing this morning. He is requiring 7 L high flow nasal cannula to maintain O2 saturations in the 90s. He has 0.9 normal saline at 50 MLS per hour. Blood glucose 99. Objective - Vital Signs Vital signs: Vital Signs Temp 97.8 F 06/16/19 08:00 Pulse 60 06/16/19 09:00 Resp 19 06/16/19 09:00 BP 156/60 06/16/19 09:00 Pulse Ox 96 06/16/19 09:00 Intake & Output 06/15/19 06/16/19 06/16/19 18:59 06:59 18:59 Intake Total 1410 840 150 Output Total 1510 1040 205 Balance -100 -200 -55 Weight 86.3 kg Intake: IV 550 150 Sodium Chloride 0.9% 1, 550 150 000 ml @ 50 mls/hr IV . Q20H [facility] Rx#:[id number] Intake, IV Titration 570 50 Amount Sodium Chloride 0.9% 1, 20 000 ml @ 10 mls/hr IV . Q24H [facility] Rx#:[id number] ceFAZolin 2 gm In Sodium 550 50 Chloride 0.9% 50 ml @ 100 mls/hr IVPB ONCE ONE Rx# :[id number] Oral 840 240 Output: Urine 1510 1040 205 Other: Voiding Method Indwelling Catheter Indwelling Catheter Indwelling Catheter - Exam GENERAL EXAM: Alert, pleasant 79-year-old gentleman, on 7 L high flow nasal cannula comfortable in no apparent distress. HEAD: Normocephalic. EYES: Normal reaction of pupils, equal size. NOSE: Clear with pink turbinates. THROAT: No erythema or exudates. NECK: No masses, no JVD. CHEST: No chest wall deformity. LUNGS: Equal air entry with bilateral scattered rhonchi, end expiratory wheeze, crackles in the posterior bases, diminished CVS: S1 and S2 normal with no audible murmur, regular rhythm. ABDOMEN: No hepatosplenomegaly, normal bowel sounds, no guarding or rigidity. SPINE: No scoliosis or deformity SKIN: No rashes CENTRAL NERVOUS SYSTEM: No focal deficits, tone is normal in all 4 extremities. EXTREMITIES: Right femoral temporary venous pacemaker in place. There is no peripheral edema. No clubbing, no cyanosis. Peripheral pulses are intact. - Labs CBC & Chem 7: 06/15/19 04:50 06/16/19 04:48 Labs: Abnormal Lab Results - Last 24 Hours (Table) 06/16/19 Range/Units 04:48 Sodium 135 L (137-145) mmol/L BUN 40 H (9-20) mg/dL Assessment and Plan Assessment: Complete heart block, status post temporary transvenous pacemaker implantation. Acute pulmonary edema, congestive heart failure, most likely secondary to complete heart block. It is not clear whether this is systolic or diastolic. Echocardiogram is pending. Elevated troponin, most likely secondary to troponin leak secondary to complete heart block, being addressed by cardiology. Acute kidney injury, acute tubular necrosis secondary to complete heart block. And possibly some component of hypotension on presentation. Acute exacerbation of chronic obstructive pulmonary disease History of abdominal aortic aneurysm. Plan: The patient was seen and evaluated by Dr. Dobbs. Chest x-ray and labs reviewed. He is somewhat bronchospastic and wheezy today. On 7 L high flow nasal cannu la. Evidence of fluid volume overload. Discontinue Symbicort. We will add IV Solu-Medrol, Pulmicort and Perforomist, continue DuoNeb inhalations, give Lasix 40 mg IVP 1. Plan is for permanent pacemaker implantation today. We'll continue to follow and make further recommendations based on his clinical status. I, the cosigning physician, performed a history & physical examination of the patient. Lungs sounds with bilateral rhonchi, end expiratory wheeze, crackles in the posterior bases. Maintaining good O2 saturations in the 90s on 7 L high flow nasal cannula. I discussed the assessment and plan of care with my nurse practitioner, Mirella Gage. I attest to the above note as dictated by her.
[2019-06-16] MEDS: methylPREDNISolone SOD SUCCI 125 MG/2 ML VIAL IV SCH ×3 (10:53→23:24)
[2019-06-16] MEDS ORDERED: IV FLUID CONTINUATION 850 ML IV ONE (11:14)
[2019-06-16] MEDS ORDERED: IOPAMIDOL-370 50ML BTL INJ ONE (11:37)
[2019-06-16] MEDS ORDERED: LIDOCAINE 1% INJ 10MG/ML (20 ML MDV) ONE ×2 (11:46→11:47)
[2019-06-16] MEDS: LIDOCAINE 1% INJ 10MG/ML (20 ML MDV) SQ ONE ×2 (11:59→12:08)
[2019-06-16] MEDS ORDERED: MIDAZOLAM 2 MG/2 ML VIAL IV ONE (12:01)
[2019-06-16] MEDS ORDERED: HYDROcodone/APAP 5-325MG 1 EACH TAB PO PRN (12:32)
[2019-06-16] MEDS ORDERED: ACETAMINOPHEN IV (For NPO) 1,000 MG in EMPTY BAG 1 BAG IVPB ONE (12:32)
[2019-06-16] MEDS ORDERED: ACETAMINOPHEN TAB 325 MG TAB PO PRN (12:32)
--- NOTE | 2019-06-16 12:57 | P.PCN ---
Preoperative Diagnosis: Left upper extremity venogram 50 mL IV dye injected into the left upper extremity vein Patent left axillary, left subclavian and innominate vein Patient underwent EP procedure under conscious sedation/moderate sedation, monitoring of the level of consciousness and physiologic parameters including but not limited to vital signs and oxygenation. Patient tolerated the procedure well without any acute complications. Start time: 1157 Stop time: 1247
--- NOTE | 2019-06-16 16:22 | P.PN ---
Subjective Progress Note Date: 06/16/19 The patient was seen and examined at the bedside on 06/16 @ 0900. He was in good spirits and denied active complaints. Reported no further episodes of chest discomfort. Denied SOB, nausea, vomiting, palpitations, or dizziness. The patient is scheduled to undergo PPM placement today. Objective - Vital Signs Vital signs: Vital Signs Temp 97.8 F 06/16/19 08:00 Pulse 85 06/16/19 15:00 Resp 21 06/16/19 15:00 BP 146/78 06/16/19 15:00 Pulse Ox 96 06/16/19 15:00 Intake & Output 06/15/19 06/16/19 06/16/19 18:59 06:59 18:59 Intake Total 1410 840 405 Output Total 1510 1040 1855 Balance -100 -200 -1450 Weight 86.3 kg Intake: IV 550 405 Sodium Chloride 0.9% 1, 550 280 000 ml @ 50 mls/hr IV . Q20H [facility] Rx#:[id number] Intake, IV Titration 570 50 Amount Sodium Chloride 0.9% 1, 20 000 ml @ 10 mls/hr IV . Q24H [facility] Rx#:[id number] ceFAZolin 2 gm In Sodium 550 50 Chloride 0.9% 50 ml @ 100 mls/hr IVPB ONCE ONE Rx# :[id number] Oral 840 240 Output: Urine 1510 1040 1855 Other: Voiding Method Indwelling Catheter Indwelling Catheter Indwelling Catheter - Exam General: Non-toxic, in no acute distress, appears stated age, normal weight, on nasal cannula oxygen HEENT: NC/AT, anicteric sclerae, moist conjunctiva, no lid-lag, PERRLA Cardiovascular: S1/S2 wnl, no murmurs, rubs, or gallops Lungs: Poor air entry bilaterally with expiratory wheezing appreciated, bibasilar rales, normal respiratory effort, no accessory muscle use Abdominal: Soft, non-tender, non-distended, no guarding, rebound, or rigidity Skin: Warm, dry Extremities: No edema or contractures Psychiatric: Alert and oriented to person, place and time, appropriate affect Neuro: CN II-XII grossly intact, Strength 5/5 in all 4 extremities, Speech intact, Sensation to light touch grossly intact throughout - Labs CBC & Chem 7: 06/17/19 05:07 06/17/19 05:07 Labs: Abnormal Lab Results - Last 24 Hours (Table) 06/16/19 Range/Units 04:48 Sodium 135 L (137-145) mmol/L BUN 40 H (9-20) mg/dL Assessment and Plan Plan: Complete Heart Block s/p transvenous pacing insertion -Scheduled for PPM placement later today Troponemia -Cardiology following -Cardiac monitoring -Possibly due to ischemia in setting of bradycardia SAM, possibly due to bradycardia, improved -IVF hydration -Avoid nephrotoxic meds -Monitor BMP Leukocytosis -Likely due to acute stress -No signs of active infection at this time Mild Pulmonary Edema -F/U CXR reported as improving pulmonary edema, most likely from improving cardiac output from better heart rate COPD -C/w Solumedrol and Duonebs -Pt may need supplemental oxygen upon discharge Mild thrombocytopenia -Monitor for now DVT proph. -Heparin subq
[2019-06-16] MEDS ORDERED: SODIUM CHLORIDE 0.9% 1,000 ML IV SCH (19:00)
--- NOTE | 2019-06-16 19:00 | ECHOF ---
Referral Reason:Pre pace MEASUREMENTS -------- HEIGHT: 177.8 cm WEIGHT: 88.9 kg BP: IVSd: 1.4 cm (0.6 - 1.1) LVIDd: 5.1 cm (3.9 - 5.3) LVPWd: 1.5 cm (0.6 - 1.1) IVSs: 1.5 cm LVIDs: 3.8 cm LVPWs: 1.9 cm Ao Diam: 3.4 cm (2.0 - 3.7) AV Cusp: 2.0 cm (1.5 - 2.6) LA Diam: 3.6 cm (2.7 - 3.8) MV EXCURSION: 17.722 mm (> 18.000) MV EF SLOPE: 110 mm/s (70 - 150) EPSS: 0.5 cm MV E Frandy: 0.74 m/s MV DecT: 150 ms MV A Frandy: 0.79 m/s MV E/A Ratio: 0.94 RAP: 5.00 mmHg RVSP: 10.74 mmHg FINDINGS -------- Paced rhythm. This was a technically difficult study with suboptimal views. The left ventricular size is normal. There is moderate concentric left ventricular hypertrophy. O verall left ventricular systolic function is mildly impaired with, an EF between 45 - 50 %. Septal wall motion is delayed, and consistent with ventricular pacing. The right ventricle is normal in size. The left atrial size is normal. The right atrial size is normal. xx ml of Lumason was utilized for enhancement of images. The aortic valve is trileaflet and appears structurally normal. The mitral valve is normal. Mild mitral regurgitation is present. The tricuspid valve appears structurally normal. Mild tricuspid regurgitation present. Right vent ricular systolic pressure is normal at < 35 mmHg. There is no pulmonic regurgitation present. The aortic root size is normal. IVC Not well visulized. There is no pericardial effusion. CONCLUSIONS -------- 1. Paced rhythm. 2. This was a technically difficult study with suboptimal views. 3. The left ventricular size is normal. 4. There is moderate concentric left ventricular hypertrophy. 5. Overall left ventricular systolic function is mildly impaired with, an EF between 45 - 50 %. 6. Septal wall motion is delayed, and consistent with ventricular pacing. 7. The right ventricle is normal in size. 8. The left atrial size is normal. 9. The right atrial size is normal. 10. xx ml of Lumason was utilized for enhancement of images. 11. The aortic valve is trileaflet and appears structurally normal. 12. The mitral valve is normal. 13. Mild mitral regurgitation is present. 14. The tricuspid valve appears structurally normal. 15. Mild tricuspid regurgitation present. 16. Right ventricular systolic pressure is normal at < 35 mmHg. 17. There is no pulmonic regurgitation present. 18. The aortic root size is normal. 19. IVC Not well visulized. 20. There is no pericardial effusion. IT ARCHITECTURE ANALYST: Sima Castro RDCS
[2019-06-16] MEDS: FORMOTEROL FUMARATE 20 MCG/2 ML NEBU INHALATION SCH (20:30)
[2019-06-16] MEDS: BUDESONIDE 1 MG/2 ML NEBU INHALATION SCH (20:30)
[2019-06-16] MEDS: ATORVASTATIN 40 MG TAB PO SCH (20:34)
[2019-06-16] MEDS: MONTELUKAST 10 MG TAB PO SCH (20:34)
[2019-06-17] MEDS: methylPREDNISolone SOD SUCCI 125 MG/2 ML VIAL IV SCH ×2 (05:31→12:16)
[2019-06-17 05:36] LABS: HCT 39.3 % (39.0-53.0); HGB 12.7 gm/dL (13.0-17.5); MCH 34.3 pg (25.0-35.0); MCHC 32.4 g/dL (31.0-37.0); MCV 105.8 fL (80.0-100.0); Macrocytosis Slight; Mean Platelet Volume 8.3; Platelet Count 161 k/uL (150-450); RBC 3.72 m/uL (4.30-5.90); RDW 12.4 % (11.5-15.5)
[2019-06-17 05:38] LABS: Calcium 8.7 mg/dL (8.4-10.2)
--- NOTE | 2019-06-17 06:41 | PCN ---
PROCEDURE NOTE Omega Troy is a 79-year-old male patient presented to the hospital shortness of breath and bradycardia secondary to third-degree heart block without any reversible causes. He was seen by Dr. Charlton who advised a permanent pacing. He evaluated his 2D echo and this showed a fairly preserved LV systolic function. I reviewed his 2D echo and LV function during temporary RV pacing was at the low normal range of about 50%. DESCRIPTION OF PROCEDURE: Patient was brought to the EP lab in a fasting state. Written informed consent was obtained prior to the procedure. The left shoulder area was prepped and draped as per protocol. 1% lidocaine was used for local anesthesia. IV antibiotics were administered. An 4 cm incision made parallel to the deltopectoral groove, about 1.5 cm medial to it. The incision was carried down to the level of the pectoralis muscle. A subfascial pocket was made. Hemostasis was assured. The left axillary vein was accessed at 2 separate points under fluoroscopy and via appropriately-sized introducer sheaths 2 leads were positioned the right heart. The atrial lead was a Medtronic model #4574, 45 cm in length and serial number [id number]. This was a passive lead, positioned in the right atrial appendage. Pacing threshold 0.5 V at 0.4 milliseconds. Pacing impedance of 703 ohms pacing and P-waves between 3-5 mV. 10 V test negative. The RV lead was a screw-in lead positioned in the RV septum, to avoid RV apex. This was a Medtronic model #5076, 50 cm in length and serial number [id number]. The R-waves were paced. R-waves were sensed at 17 mV. Pacing impedance 1026 ohms, pacing threshold 0.75 V at 0.4 milliseconds. 10 V test negative. Both leads were secured to the underlying pectoralis fascia using 2 nonabsorbable sutures. Pocket was irrigated with antibiotic solution. Leads were connected to the generator (iCAD Antonella MRI, model number W3DR01 serial number [id number]). The leads and generator were then placed in subfascial pocket and the device secured to the underlying pectoralis muscle. The wound was closed in 3 layers and dressed per protocol. Following that, the transvenous temporary pacemaker was extracted. His vitals remained stable before and after. Fluoroscopy of the leads was performed before and after removal of the DVP and were found to be in stable position. RESULT: Successful dual-chamber pacemaker implantation for third-degree heart block, symptomatic, without any reversible causes. The patient tolerated the procedure well without any acute complications MMODL / IJN: [id number] /
[2019-06-17] MEDS: HEPARIN SODIUM,PORCINE 5,000 UNIT/ML 1 ML VIAL SQ SCH (08:23)
[2019-06-17] MEDS: amLODIPine 10 MG TAB PO SCH (08:23)
[2019-06-17] MEDS: TAMSULOSIN 0.4 MG CAP.ER.24H PO SCH (08:23)
[2019-06-17] MEDS: VIT A,C & E-LUTEIN-MINERALS 1 EACH TAB PO SCH (08:23)
[2019-06-17] MEDS: BUDESONIDE 1 MG/2 ML NEBU INHALATION SCH (08:30)
[2019-06-17] MEDS: IPRATROPIUM-ALBUTEROL 3 ML NEB INHALATION SCH ×2 (08:30→13:07)
[2019-06-17] MEDS: FORMOTEROL FUMARATE 20 MCG/2 ML NEBU INHALATION SCH (08:30)
[2019-06-17 08:34] VITALS: TEMP 98.5
--- NOTE | 2019-06-17 08:44 | XR ---
EXAMINATION TYPE: XR chest 2V DATE OF EXAM: 06/17/2019 COMPARISON: Chest x-ray 06/15/2019 HISTORY: Lead placement check TECHNIQUE: Frontal and lateral views of the chest are obtained. FINDINGS: There is been interval development of abnormal attenuation at the right costophrenic angle , there is blunting. Heart size is not significantly changed. There is no evident pneumothorax. Pacem latasha is been placed in the generator in the left pectoral region, there are leads in right atrium and ventricle. There are overlying cardiac leads. Aorta is dense possibly ectatic. There is some improve ment in interstitium. IMPRESSION: No evident complication status post pacemaker placement. There may be small pleural effu all and associated atelectasis versus edema. Improvement in patient's volume status, aeration.
--- NOTE | 2019-06-17 09:01 | P.PN ---
Subjective Progress Note Date: 06/17/19 Principal diagnosis: Dizziness, shortness of breath secondary to complete heart block This is a 79-year-old white male with history of multiple medical problems including chronic obstructive pulmonary disease which is basically well- controlled, abdominal aortic aneurysm, presented to the ER last night with 2-3 days history of shortness of breath and feeling dizzy. Patient had no chest pain, no fever, no chills, no hemoptysis, no headache, no blurred vision. Patient was worked up in the ER, and he was found to have a complete heart block. Cardiology was consulted, and the patient was taken to the cardiac catheterization lab, underwent temporary transvenous pacemaker implantation through the right femoral vein. Patient was sent to the ICU, I was notified about the patient having shortness of breath, and I reviewed a chest x-ray which showed evidence of interstitial edema. Recommended Lasix 40 mg IV push, and I saw him again today, recommended Lasix again chest x-ray did show improvement compared to yesterday. Patient is breathing easier today, less shortness of breath, hardly any cough, no wheezing, no chest pain. Patient is paced, his rate is set at 60 bpm. The patient is seen today 06/16/2019 in follow-up in the intensive care unit. He is currently awake and alert in no acute distress. He is still in complete heart block. Temporary venous pacer is in place. The plan is for permanent pacemaker today. Chest x-ray shows evidence of fluid volume overload and congestive heart failure. Echocardiogram is pending. He is also somewhat bronchospastic and wheezing this morning. He is requiring 7 L high flow nasal cannula to maintain O2 saturations in the 90s. He has 0.9 normal saline at 50 MLS per hour. Blood glucose 99. The patient is seen today 06/17/2019 in follow-up in the intensive care unit. He is currently sitting up in a chair at the bedside. Awake and alert in no acute distress. He did undergo permanent pacemaker implantation yesterday. He is maintaining good O2 saturations in the 90s on 2 L/m per nasal cannula. No complaints of palpitations or dizziness. Hemodynamically stable. White count 14.0. Hemoglobin 12.7. Sodium 135. Creatinine 1.00. Objective - Vital Signs Vital signs: Vital Signs Temp 98.5 F 06/17/19 08:00 Pulse 92 06/17/19 08:52 Resp 12 06/17/19 08:00 BP 136/87 06/17/19 08:00 Pulse Ox 94 L 06/17/19 08:31 Intake & Output 06/16/19 06/17/19 06/17/19 18:59 06:59 18:59 Intake Total 985 460 Output Total 2100 613 Balance -1115 -153 Weight 80.9 kg Intake: IV 485 220 Sodium Chloride 0.9% 1, 360 220 000 ml @ 50 mls/hr IV . Q20H [facility] Rx#:[id number] Oral 500 240 Output: Urine 2100 613 Other: Voiding Method Indwelling Catheter Indwelling Catheter Indwelling Catheter - Exam GENERAL EXAM: Alert, pleasant 79-year-old gentleman, on 2 L nasal cannula comfortable in no apparent distress. HEAD: Normocephalic. EYES: Normal reaction of pupils, equal size. NOSE: Clear with pink turbinates. THROAT: No erythema or exudates. NECK: No masses, no JVD. CHEST: Status post permanent pacemaker implantation below the left clavicle. Dressing dry and intact. Sling in place. LUNGS: Equal air entry with bilateral scattered rhonchi, end expiratory wheeze, crackles in the posterior bases, diminished CVS: S1 and S2 normal with no audible murmur, regular rhythm. ABDOMEN: No hepatosplenomegaly, normal bowel sounds, no guarding or rigidity. SPINE: No scoliosis or deformity SKIN: No rashes CENTRAL NERVOUS SYSTEM: No focal deficits, tone is normal in all 4 extremities. EXTREMITIES: Left arm in a sling. There is no peripheral edema. No clubbing, no cyanosis. Peripheral pulses are intact. - Labs CBC & Chem 7: 06/17/19 05:07 06/17/19 05:07 Labs: Abnormal Lab Results - Last 24 Hours (Table) 06/17/19 06/17/19 Range/Units 05:07 05:07 WBC 14.0 H (3.8-10.6) k/uL RBC 3.72 L (4.30-5.90) m/uL Hgb 12.7 L (13.0-17.5) gm/dL MCV 105.8 H (80.0-100.0) fL Sodium 135 L (137-145) mmol/L Carbon Dioxide 32 H (22-30) mmol/L BUN 45 H (9-20) mg/dL Glucose 135 H (74-99) mg/dL Assessment and Plan Assessment: Complete heart block, status post temporary transvenous pacemaker implantation. Acute pulmonary edema, congestive heart failure, most likely secondary to complete heart block. It is not clear whether this is systolic or diastolic. Echocardiogram is pending. Elevated troponin, most likely secondary to troponin leak secondary to complete heart block, being addressed by cardiology. Acute kidney injury, acute tubular necrosis secondary to complete heart block. And possibly some component of hypotension on presentation. Acute exacerbation of chronic obstructive pulmonary disease History of abdominal aortic aneurysm. Plan: The patient was seen and evaluated by Dr. Dobbs. He is currently stable from the pulmonary and critical care standpoint. To be transferred out of the ICU today. Home once cleared by cardiology. We'll follow as needed. I, the cosigning physician, performed a history & physical examination of the patient. Lungs sounds with few end expiratory wheeze, diminished. Maintaining good O2 saturations in the 90s on2 L nasal cannula. I discussed the assessment and plan of care with my nurse practitioner, Mirella Gage. I attest to the above note as dictated by her.
[2019-06-17 12:09] VITALS: BP 151/75; RESP 61
--- NOTE | 2019-06-17 12:34 | PN ---
PROGRESS NOTE A 79-year-old gentleman who was admitted to the hospital with complete heart block and underwent initially temporary pacemaker and subsequently permanent pacemaker. This morning patient is doing well. He has mild LV dysfunction with an ejection fraction of 45%. PHYSICAL EXAMINATION: On exam, heart rate is 70 beats per minute, blood pressure is 150/92, respiratory rate is 18. There is no jugular venous distention. Chest exam reveals diminished air entry at the bases. Heart exam reveals first and second heart sounds. No gallop. Abdomen is soft. Examination of the extremities did not reveal any edema. Peripheral pulses are felt. ASSESSMENT: 1. Complete heart block status post permanent pacemaker. Pacemaker is functioning normally. Chest x-ray appears normal. 2. Chronic obstructive pulmonary disease exacerbation. 3. Hypertension. PLAN: The patient is stable for discharge. I will discharge him home on Norvasc, Lipitor, nebulizers, and Lasix. He will be followed up in my office in a week's time. MMODL / IJN: [id number] /
--- NOTE | 2019-06-17 13:18 | P.DS ---
Providers Date of admission: 06/14/19 17:09 Expected date of discharge: 06/17/19 Attending physician: Elvin Jimenez MD Consults: 06/14/19 16:29 Consult Physician Stat Consulting Provider: Zaire Charlton Consult Reason/Comments: complete heart block Do you want consulting provider notified?: Already Contacted 06/14/19 17:09 Consult Physician Stat Consulting Provider: Nuzhat Hamilton Consult Reason/Comments: icu patient Do you want consulting provider notified?: Already Contacted Primary care physician: [facility] Course: The patient is 79-year-old male with a PMH of well-controlled COPD, and abdominal aortic aneurysm who had presented to the ED with complaints of shortness of breath and dizziness. In the emergency room, the patient was noted to be bradycardic with heart rate as low as 15 bpm with EKG showing a complete heart block. The patient was started on dopamine infusion and cardiology was consulted and the patient was immediately taken to the ER for transvenous pacer which he had placed uneventfully. The patient subsequently underwent a permanent pacemaker placement on 06/16. Echocardiogram had revealed mildly impaired left ventricular systolic function with an EF of 45-50% and moderate concentric LVH. The patient was also noted to have a troponin elevation which was deemed likely secondary to his heart block. The patient also developed wheezing with hypoxia with an underlying COPD for which he was started on IV steroids, bronchodilators, and supplemental oxygen. The patient was seen and examined at the bedside on the day of discharge on 06/17/19. He reported feeling well and denied active complaints. Patient denied chest discomfort, shortness of breath, nausea, vomiting, abdominal pain, or dizziness. The patient cont inued to have SpO2 less than 90% while at rest on room air. The patient was advised that if his symptoms recur or if he develops any additional symptoms, that he should immediately return to the emergency room. The patient will be discharged with oral Lasix along with the prednisone oral taper and inhalers with a follow-up with both cardiology and pulmonary medicine. Physical Examination General: Non-toxic, in no acute distress, appears stated age, normal weight HEENT: NC/AT, anicteric sclerae, moist conjunctiva, no lid-lag, PERRLA Cardiovascular: S1/S2 wnl, no murmurs, rubs, or gallops, L sided permanent pacemaker in place Lungs: Mild bibasilar rales with poor air entry bilaterally, no wheezing or rhonchi appreciated, normal respiratory effort, no accessory muscle use Abdominal: Soft, non-tender, non-distended, no guarding, rebound, or rigidity Skin: Warm, dry Extremities: No edema or contractures Psychiatric: Alert and oriented to person, place and time, appropriate affect Neuro: CN II-XII grossly intact, Strength 5/5 in all 4 extremities, Speech intact, Sensation to light touch grossly intact throughout Discharge diagnosis: Complete heart block status post permanent pacemaker placement; troponin elevation; acute COPD exacerbation; acute systolic CHF exacerbation; SAM, resolved; leukocytosis A total of 40 minutes of time were spent preparing this complex discharge summary. Patient Condition at Discharge: Stable Plan - Discharge Summary Discharge Rx Participant: No New Discharge Prescriptions: New Ipratropium/Albuterol Sulfate [Combivent Respimat Inhaler] 1 puff INHALATION QID PRN #1 inhaler PRN Reason: Shortness Of Breath Atorvastatin [Lipitor] 40 mg PO HS #30 tab amLODIPine [Norvasc] 10 mg PO DAILY #30 tab predniSONE 0 mg PO DIRECTED #63 tab Montelukast [Singulair] 10 mg PO HS #30 tab Budesonide-Formot 160-4.5 Mcg [Symbicort 160-4.5 Mcg Inhaler] 2 puff INHALATION BID #1 inhaler Furosemide [Lasix] 40 mg PO DAILY #7 tablet Continue Aspirin EC [Ecotrin Low Dose] 81 mg PO DAILY Tamsulosin [Flomax] 0.4 mg PO BID Discontinued amLODIPine [Norvasc] 2.5 mg PO DAILY Simvastatin [Zocor] 40 mg PO HS Zafirlukast 20 mg PO BID Albuterol Sulfate [Ventolin HFA] 2 puff INHALATION RT-Q4H PRN PRN Reason: Shortness Of Breath methylPREDNISolone [Medrol Dose Pack] See Taper PO DIRECTED Azithromycin [Zithromax Z-pack] See Taper PO DIRECTED Discharge Medication List Aspirin EC [Ecotrin Low Dose] 81 mg PO DAILY 06/16/19 [History] Tamsulosin [Flomax] 0.4 mg PO BID 06/16/19 [History] Atorvastatin [Lipitor] 40 mg PO HS #30 tab 06/17/19 [Rx] Budesonide-Formot 160-4.5 Mcg [Symbicort 160-4.5 Mcg Inhaler] 2 puff INHALATION BID #1 inhaler 06/17/19 [Rx] Furosemide [Lasix] 40 mg PO DAILY #7 tablet 06/17/19 [Rx] Ipratropium/Albuterol Sulfate [Combivent Respimat Inhaler] 1 puff INHALATION QID PRN #1 inhaler 06/17/19 [Rx] Montelukast [Singulair] 10 mg PO HS #30 tab 06/17/19 [Rx] amLODIPine [Norvasc] 10 mg PO DAILY #30 tab 06/17/19 [Rx] predniSONE 0 mg PO DIRECTED #63 tab 06/17/19 [Rx] Follow up Appointment(s)/Referral(s): Willem Goldberg MD [STAFF PHYSICIAN] - 06/25/19 3:15 pm [facility],Equipment [NON-STAFF] - As Needed Simon Dobbs DO [Doctor of Osteopathic Medicine] - 07/01/19 1:45 pm Roge Casarez MD [Primary Care Provider] - 06/20/19 9:00 am (After discharge, you will follow-up with your applications system analyst. Once you have obtained a prescription for cardiac rehab and have completed a stress test, please call [phone] to set up an evaluation.) Patient Instructions/Handouts: Using Oxygen at Home (DC), Pacemaker (DC), Pacemaker (GEN) Discharge Disposition: HOME SELF-CARE
[2019-06-17 13:21] VITALS: PULSE 92
== END 2019-06-17 14:15 | disposition home or self-care (01) | DRG 242 ==
LOC: EC 15:59 → 2SICU 17:09
PROVIDERS: ADMIT Hospitalist; ATTEND Hospitalist
PROC: 5A1223Z Performance of Cardiac Pacing, Continuous (ICD-10-PCS; 2019-06-14)
PROC: 0JH606Z Insertion of Pacemaker, Dual Chamber into Chest Subcutaneous Tissue and Fascia, Open Approach (ICD-10-PCS; principal; 2019-06-16 11:00)
PROC: 02HK3JZ Insertion of Pacemaker Lead into Right Ventricle, Percutaneous Approach (ICD-10-PCS; principal; 2019-06-16 11:00)
PROC: 02H63JZ Insertion of Pacemaker Lead into Right Atrium, Percutaneous Approach (ICD-10-PCS; principal; 2019-06-16 11:00)
DX: I44.2 Atrioventricular block, complete (principal); N17.0 Acute kidney failure with tubular necrosis; I50.23 Acute on chronic systolic (congestive) heart failure; J44.1 Chronic obstructive pulmonary disease with (acute) exacerbation; I95.9 Hypotension, unspecified; F17.200 Nicotine dependence, unspecified, uncomplicated; D75.89 Other specified diseases of blood and blood-forming organs; R00.1 Bradycardia, unspecified; D72.829 Elevated white blood cell count, unspecified; I11.0 Hypertensive heart disease with heart failure; E78.5 Hyperlipidemia, unspecified; E86.1 Hypovolemia; R79.89 Other specified abnormal findings of blood chemistry; D69.6 Thrombocytopenia, unspecified; R09.02 Hypoxemia; Z79.82 Long term (current) use of aspirin; Z79.899 Other long term (current) drug therapy; Z96.60 Presence of unspecified orthopedic joint implant; Z86.79 Personal history of other diseases of the circulatory system; Z98.890 Other specified postprocedural states
CPT/HCPCS: 33208; 33210; 36415; 36600; 71045; 71046; 80048; 80053; 82805; 83735; 84443; 84484; 85025; 85027; 85610; 85730; 86618; 93005; 93306; 94640; 94760; 96365; 96368; 96375; 99291

== ENCOUNTER → 2020-02-25 | Outpatient (CLI) | payer MEDICARE ==
--- NOTE | 2020-02-25 11:52 | CT ---
"EXAMINATION TYPE: CT soft tissue neck w con DATE OF EXAM: 02/25/2020 HISTORY: Right sided neck mass x 6 months, marked by BB. COMPARISON: NONE CT DLP: 552 mGycm. Automated Exposure Control for Dose Reduction was Utilized. TECHNIQUE: CT scan of the neck is performed with IV Contrast, patient injected with 100 mL of Isovue M300, axial images are obtained, coronal and sagittal reformatted images are reviewed. FINDINGS: Airway: Moderate to advanced emphysematous change of visualized upper lungs. Airway patent. Suboptima l evaluation near tongue base due to artifact from dental work. Asymmetric heterogeneous soft tissue fullness right tongue base axial image 28 at this level is present. There is irregular mucosal tissue coronal image 48 at this level causing some piriform asymmetry. Dedicated asymmetric ovoid heterogen eously enhancing soft tissue measures 2.5 x 1.6 cm right tongue base axial image 38. Parotid/submandibular glands: No gross abnormality seen. Carotid/Vascular Structures: Severe calcified plaque left carotid bulb extending into proximal internet sales representative al carotid artery with stenosis greater than 50% focal present . More focal severe calcified plaque r ight carotid bulb axial image 38 causing stenosis greater than 50% also. Follow-up advised. Fairly se lo calcified plaque supraclinoid segment distal internal carotid arteries bilaterally, left greater than right. Osseous Structures: Exaggerated cervical curvature. Moderate disc space narrowing C4-C5 through C6-C7 levels. Slight levoconvex scoliotic curvature. Other: Partial visualization of left sided pacemaker device. Metallic BB a level palpable abnormality right neck axial image 43. Just superior anterior to this th ere is abnormal heterogeneous 2.2 x 1.7 cm mass right submandibular level causing medial carotid chalino ation right before carotid bulb. 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 Advise ENT referral for further workup and direct visualization/sampling. A Yellow level critical message alert has been initiated for Payam Ramos MD via the [employer] 36 0 | Critical Results System on 02/25/2020 11:49 AM. This message alert has been sent to Payam burks MD via the preferences provided by the clinician for the receipt of Radiology Critical Findings. Lidia essage ID [id number]."
== END | disposition home or self-care (01) ==
LOC: RADCTMAIN 10:12
PROVIDERS: ATTEND Family Medicine
DX: R22.1 Localized swelling, mass and lump, neck (principal)
CPT/HCPCS: 82565; 84520; 70491; 36415; Q9967

== ENCOUNTER → 2020-03-26 | Day surgery (SDC) | payer MEDICARE ==
[2020-03-24 10:35] VITALS: BMI 24.0
[~2020-03-26] MED LIST: ACETAMINOPHEN IV (For NPO) 1,000 MG in EMPTY BAG 1 BAG IVPB ONE; DEXAMETHASONE SOD PHOSPHATE 10 MG/ML 1 ML VIAL ONE; GLYCOPYRROLATE 0.2 MG/ML 2 ML VIAL ONE; HYDROmorphone 0.5 MG/0.5 ML SYRINGE IVP PRN; LACTATED RINGERS 1,000 ML IV SCH; LIDOCAINE 1% (10MG/ML) FOR IV START INTRADERMA ONE; MIDAZOLAM 2 MG/2 ML VIAL IV PRN; ONDANSETRON 4 MG/2 ML VIAL IVP ONE; PROPOFOL 10 MG/ML 20 ML VIAL IV ONE; Pre Op ABX Message 1 EACH MISC MISCELLANE ONE; SUCCINYLCHOLINE CHLORIDE 100 MG/5 ML SYR IV ONE; fentaNYL (PF) 50 MCG/ML 2 ML AMP ONE
--- NOTE | 2020-03-26 00:12 | HP ---
HISTORY AND PHYSICAL CHIEF COMPLAINT: Right base of tongue mass. HISTORY OF PRESENT ILLNESS: The patient is a pleasant 80-year-old male who was referred to my office by Dr. Payam Ramos for evaluation of a possible right base of tongue mass with a right neck mass. This patient states that for approximately the past 6 months he has noted that there was swelling in the right side of his neck. He recently saw his family physician, Dr. Ramos, who performed a physical examination and a CT scan and the CT scan showed that there was a right base of tongue mass as well as right neck mass. The patient states he has been having some slight pain in his throat, but no referred otalgia or dysphagia. He smokes approximately a pack to a pack and half cigarettes per day and was advised to quit for obvious health reasons. At the time that he was seen in the office, clinical examination including indirect laryngoscopy revealed a suspicious mass/lesion on the right base of tongue and palpation of the neck revealed approximately a 2 to 2.5 cm well-circumscribed somewhat fixed firm mass located in the anterior triangle of the right neck. Because of this patient's history of heavy smoking and the suspicion of possible malignancy, it was recommended that the patient undergo a suspension microlaryngoscopy with biopsy of the right base of tongue mass under general anesthesia. PAST MEDICAL HISTORY: This patient has no allergies. His current medications include Symbicort, tamsulosin, metoprolol, Singulair, simvastatin, and a baby aspirin. Previous surgeries include triple bypass surgery, insertion of a pacemaker, total left knee replacement, and a uvulopalatopharyngoplasty for snoring. REVIEW OF SYSTEMS: Review of systems reveal that the cardiovascular system is positive for hypertension and ASHD. 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 The metabolic endocrine system is positive for hypercholesterolemia. The remainder of the review of systems is unremarkable. PHYSICAL EXAMINATION: Patient is a very pleasant 80-year-old male who is alert, cooperative and well oriented to time and place. HEENT EXAMINATION: Patient is normocephalic. Tympanic membranes are normal. Middle ear spaces are free of any fluid or infection. Pupils are equal, round, reactive to light and accommodation. Extraocular movements within normal limits. Intranasal examination reveals moderate to severe septal deviation with bilateral compensatory hypertrophy of the inferior turbinates. Examination of the oropharynx including indirect laryngoscopy is as described above. It will not be repeated here. Palpation of neck reveals approximately 2.5 or greater centimeter well-circumscribed, firm, slightly mobile, nontender, nonfluctuant mass in the anterior triangle of the right neck. No other suspicious neck masses are noted. Cranial nerves 2 through 12 and remainder of the head and neck exam are within normal limits. CHEST/CARDIOVASCULAR: Both lung guillen are clear to percussion and auscultation. The patient is in regular sinus rhythm. S1 and S2 are present without evidence any murmurs, S3s or S4s. Peripheral pulses are bilaterally symmetrical and within normal limits. ABDOMEN: There is no evidence any masses, megaly or tenderness. The abdomen is soft. Skin is unremarkable. Musculoskeletal and neurological are within normal limits. Rectal Exam: The rectal exam is deferred at this time because the patient has this done on a regular basis at his family physician's office. The remainder of physical exam is essentially unremarkable. IMPRESSION: Right mass with right neck mass/lymphadenopathy. PLAN: The patient is scheduled to go undergo a suspension microlaryngoscopy and biopsy of right base of tongue mass under general anesthesia in the a.m. ATTENTION RNS IN THE PRE-SURGICAL AREA: The only pre-surgical prophylactic antibiotic that I have ordered for this patient, because of his total knee replacement, is 2 grams of Ancef/Kefzol IV to be given once an intravenous line has been established. I have also ordered for this patient to receive 1000 mg of Ofirmev IV, again once an intravenous line has been established. If the pharmacy department sends up a different pre-surgical prophylactic antibiotic to the pre-surgical area for this patient, please cancel that order and return that medication to the pharmacy department and make sure that the patient's account is credited appropriately. I have discussed the risks, benefits and alternative therapies for the above-mentioned procedure and for both sedation/analgesia as well as necessary blood product administration, if indicated, as they pertain to this patient. The patient has indicated his or her understanding and acceptance of the risks and procedures discussed. MMODL / IJN: [id number] /
[2020-03-26 11:25] VITALS: TEMP 97.5
[2020-03-26 12:09] VITALS: RESP 17
[2020-03-26 12:19] VITALS: BP 143/71; PULSE 69
--- NOTE | 2020-03-26 18:12 | OP ---
OPERATIVE REPORT DATE OF SURGERY: 03/26/2020 PREOPERATIVE DIAGNOSIS: Right base of tongue mass with right neck mass/lymphadenopathy. POSTOPERATIVE DIAGNOSIS: Right base of tongue mass with right neck mass/lymphadenopathy; final pathology pending. ANESTHESIA: General. OPERATIVE PROCEDURE: Suspension microlaryngoscopy with multiple biopsies of a right base of tongue mass. OPERATING SURGEON: Dr. Paresh Covington COMPLICATIONS: None. ESTIMATED BLOOD LOSS: Less than 5 mL. OPERATIVE PROCEDURE DESCRIPTION: The patient was placed on the operating table in the supine position. After uneventful induction and endotracheal intubation, satisfactory general anesthesia was obtained. Next, the patient was draped in the usual and customary fashion, following which a mouth guard was applied. The laryngoscope was introduced into the patient's oropharynx, and the entire oropharynx, including the right and left piriform sinuses, valleculae and epiglottis, was inspected. These were found to be free of any suspicious lesions. Next the entire base of tongue, beginning with the left side and working over to the right side, was inspected. No obvious mucosal lesion was noted in the region of the lesion which had been seen on the CT scan. On the lateral border of the right base of tongue there appeared to be some abnormal/unusual-appearing tissue, and therefore multiple biopsies were taken of this area. In addition, the entire base of tongue was palpated with a finger and it was found that in the area noted on the CT scan there was firmness. However, this firmness was obviously submucosal; that is to say, it was not obvious on initial inspection. Several blind biopsies were taken in this area. There was also a cystic-appearing lesion, which was left undisturbed because it appeared to be benign and because of concern about it possibly being either vascular in origin or filled with some type of fluid that might cause airway problems postoperatively. The patient was given 10 mg of Decadron intraoperatively to reduce any post-surgical edema of the tongue. At least 4 to 6 biopsies of the suspicious area of the right base of tongue were sent to Pathology for permanent sectioning. Again, it is to be noted that it is felt that this lesion for the most part is submucosal and is palpable but not readily seen on inspection. Next, the tip of the laryngoscope was placed at the laryngeal introitus. The Lewy apparatus was attached to the handle of the laryngoscope and the laryngoscope was suspended on the patient's chest. Using the Zeiss operating microscope and under magnified visualization, one could see that both true vocal cords appeared to be unremarkable; no evidence of any lesions of the larynx or the laryngeal superstructure. Both arytenoids appeared to be normal, and again inspection of the right piriform and left piriform sinuses was negative. At this point, the procedure was terminated. There were no intraoperative complications. The patient tolerated the procedure well. Specimens were sent to Pathology in formalin for permanent sectioning. The patient was returned to recovery room in satisfactory condition. Final pathology is pending. Because the lesion appears to be mainly submucosal, if the biopsies that were taken do not yield any significant information, then the next course of action would be to perform a fine-needle aspiration of the right neck mass. Attempting to perform an incisional biopsy of the base of tongue is fraught with many potential complications, mainly involving hemorrhaging and airway obstruction. This procedure, which normally takes about 15-20 minutes, took approximately 45 minutes because of care being taken to make sure that no obvious lesion was missed. MMODL / IJN: [id number] /
== END | disposition home or self-care (01) ==
LOC: OR 08:16
PROVIDERS: ATTEND Otolaryngology
DX: C01 Malignant neoplasm of base of tongue (principal); R22.1 Localized swelling, mass and lump, neck; F17.210 Nicotine dependence, cigarettes, uncomplicated; Z79.51 Long term (current) use of inhaled steroids; Z79.899 Other long term (current) drug therapy; Z79.82 Long term (current) use of aspirin; Z95.1 Presence of aortocoronary bypass graft; Z95.0 Presence of cardiac pacemaker; Z96.652 Presence of left artificial knee joint; Z98.890 Other specified postprocedural states; I10 Essential (primary) hypertension; I25.10 Atherosclerotic heart disease of native coronary artery without angina pectoris; J43.9 Emphysema, unspecified; E78.00 Pure hypercholesterolemia, unspecified; K08.89 Other specified disorders of teeth and supporting structures; Z97.2 Presence of dental prosthetic device (complete) (partial); Z98.811 Dental restoration status; I71.4 Abdominal aortic aneurysm, without rupture
CPT/HCPCS: 31536; J1100; J0690; J2405; J3010; J0131; J0330; J2704; 88305; 88341; 88342

== ENCOUNTER → 2020-04-16 | Day surgery (SDC) | payer MEDICARE ==
[2020-04-14 14:48] VITALS: BMI 23.5
--- NOTE | 2020-04-15 19:05 | HP ---
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 HISTORY OF PRESENT ILLNESS: This patient is a pleasant 80-year-old male who was referred to my office by Dr. Payam Ramos for evaluation of a right base of tongue mass. The patient was subsequently taken to surgery, and under general anesthesia a biopsy of the right base of tongue mass was performed. The pathology was returned as well-differentiated invasive squamous cell carcinoma of the right base of tongue. The patient was advised that he needed to undergo a triple endoscopy to rule out any possible secondary synchronous malignancy elsewhere in the aerodigestive track. His past medical history reveals he has NO ALLERGIES TO MEDICATIONS. His current medications include Symbicort, tamsulosin, metoprolol, Singulair, simvastatin and one baby aspirin. Previous surgeries include suspension microlaryngoscopy, triple bypass surgery, insertion of a pacemaker, total left knee replacement, and a uvulopalatoplasty for snoring. REVIEW OF SYSTEMS: CARDIOVASCULAR SYSTEM: Positive for hypertension and ASHD. RESPIRATORY SYSTEM: Positive for COPD and emphysema. METABOLIC ENDOCRINE SYSTEM: Positive for hypercholesterolemia. The remainder of the review of systems is unremarkable. PHYSICAL EXAMINATION: This patient is a pleasant 80-year-old male who is alert, cooperative and well-oriented to time. HEENT EXAMINATION: Patient is normocephalic. Tympanic membranes are normal. Middle ear space is free of any fluid or infections. Extraocular movements are within normal limits. Pupils are equal, round, reactive to light and accommodation. Intranasal examination reveals moderate to severe septal deviation with bilateral compensatory hypertrophy of the inferior turbinates. Examination of oropharynx, including indirect laryngoscopy, is as described in a recent history and physical dated 03/03/2020. Palpation of the neck reveals an approximately 2 cm well-circumscribed, firm, slightly mobile, nontender and nonfluctuant mass in the anterior triangle of the right neck. The remainder of the head and neck exam is essentially unremarkable, including cranial nerves 2 through 12. CHEST/CARDIOVASCULAR: Lung guillen are clear to percussion and auscultation. Patient is in regular sinus rhythm. S1 and S2 are present with any murmurs, S3s or S4. Peripheral pulses are bilaterally symmetrical. ABDOMEN: There is no evidence any masses, megaly or tenderness. The abdomen is soft. SKIN: Unremarkable. MUSCULOSKELETAL and NEUROLOGICAL: Within normal limits. Rectal examination is deferred at this time because the patient has this done on a regular basis at his family physician's office. The remainder of physical exam is unremarkable. IMPRESSION: Right base of tongue mass/well-differentiated invasive squamous cell carcinoma of the right base of tongue with metastasis to the right neck. PLAN: The patient is scheduled to undergo a triple endoscopy under general anesthesia. ATTENTION RNS IN THE PRE-SURGICAL AREA: The only prophylactic antibiotic that I have ordered for this patient, because of his total knee replacement, is 3 grams of Ancef/Kefzol IV to be given once an intravenous line has been established. I have also ordered for him to receive 1000 mg of Ofirmev IV, again to be given once an intravenous line has been established. If the pharmacy department sends a different pre-surgical prophylactic antibiotic to the pre-surgical area for this patient, please cancel that order and return the medication to the pharmacy department. Also make sure that the patient's account is credited appropriately. I have discussed the risks, benefits and alternative therapies for the above-mentioned procedure and for both sedation/analgesia as well as necessary blood product administration, if indicated, as they pertain to this patient. The patient has indicated his or her understanding and acceptance of the risks and procedures discussed. MMODL / IJN: [id number] /
--- NOTE | 2020-04-15 20:44 | HP ---
HISTORY AND PHYSICAL CHIEF COMPLAINT: Squamous cell carcinoma of the right base of tongue. HISTORY OF PRESENT ILLNESS: The patient is a 80-year-old male who on 03/03/2020 underwent a biopsy of a right base of tongue mass. The biopsy came back as invasive, moderately differentiated squamous cell carcinoma. Because of this, the patient was advised that he should undergo a triple endoscopy to make sure there were not any other suspicious malignancies in the aerodigestive tract. PAST MEDICAL HISTORY: NO ALLERGIES. CURRENT MEDICATIONS: Symbicort Ends abruptly. MMODL / IJN: [id number] /
[~2020-04-16] MED LIST changes: +DEXAMETHASONE SOD PHOSPHATE 4 MG/ML 1 ML VIAL IV ONE; -GLYCOPYRROLATE 0.2 MG/ML 2 ML VIAL ONE; -HYDROmorphone 0.5 MG/0.5 ML SYRINGE IVP PRN; +LACTATED RINGERS 1,000 ML IV ONE; +LIDOCAINE 1% INJ 10MG/ML (20 ML MDV) ONE; -MIDAZOLAM 2 MG/2 ML VIAL IV PRN; +ONDANSETRON 4 MG/2 ML VIAL ONE; +PHENYLEPHRINE 10 MG/ML VIAL ONE; +ceFAZolin 3 GM in SODIUM CHLORIDE 0.9% 100 ML IVPB ONE; +ePHEDrine SULFATE/0.9% NACL/PF 50 MG/5 ML SYRINGE IV ONE
[2020-04-16 11:45] VITALS: TEMP 98.2
[2020-04-16 12:06] VITALS: RESP 16
[2020-04-16 12:34] VITALS: BP 132/64; PULSE 75
--- NOTE | 2020-04-16 17:02 | OP ---
OPERATIVE REPORT DATE OF SURGERY: 04/16/2020 PREOPERATIVE DIAGNOSIS: Invasive squamous cell carcinoma of the right base of tongue with right neck metastasis. POSTOPERATIVE DIAGNOSIS: Invasive squamous cell carcinoma of the right base of tongue with right neck metastasis. ANESTHESIA: General. OPERATIVE PROCEDURE: Triple endoscopy consisting of a suspension microlaryngoscopy, rigid bronchoscopy and rigid esophagoscopy. OPERATING SURGEON: Dr. Covington ESTIMATED BLOOD LOSS: Zero. COMPLICATIONS: None. OPERATIVE PROCEDURE DESCRIPTION: The patient was placed on the operating table in supine position, and after uneventful induction endotracheal intubation, satisfactory general anesthesia was obtained. Next the laryngoscope was passed into the patient's oropharynx, and the entire hypopharynx, including the right and left piriform sinuses, valleculae and tip of the epiglottis, was examined. As previously noted, there was a large ulcerated lesion on the most posterior aspect of the right base of tongue which had previously been biopsied and found to be invasive squamous cell carcinoma. The tip of the laryngoscope was then presented at the laryngeal introitus. Next the Lewy apparatus was attached to the handle of the laryngoscope and the laryngoscope was suspended on the patient's chest. Using the Zeiss operating microscope and under magnified visualization, inspection of the laryngeal structures failed to reveal any evidence of any suspicious lesions of either the false or true vocal cords. This portion of that procedure was suspended and attention was then directed towards the esophagoscopy portion of the procedure. Esophagoscopy was performed using a medium Tripp-Chevalier esophagoscope which was passed into the oropharynx in a careful manner so as not to chip any teeth. The tip of the esophagoscope was presented behind the endotracheal tube at the esophageal introitus. The scope was then carefully advanced down the esophagus in the usual and customary fashion. No suspicious lesions were seen and therefore the esophagoscope was subsequently withdrawn. Next, attention was directed towards performing a rigid bronchoscopy. This was performed using the sliding laryngoscope, which was presented at the laryngeal introitus. Next, a medium Tripp bronchoscope was placed in the sliding laryngoscope and advanced towards the laryngeal introitus. Once the laryngeal introitus was slightly pierced, the laryngoscope was removed. The laryngoscope appeared to have more than enough room to be passed without removing the endotracheal tube. Therefore the laryngoscope was passed down the trachea and the bronchial tree was examined in the usual and customary fashion. No suspicious lesions were noted. There was an excessive amount of mucus, however. The bronchoscope was then withdrawn in the usual and customary fashion and in an atraumatic fashion. At this point, the procedure was terminated. There were no intraoperative complications. No biopsies were obtained because none needed to be since there were no suspicious lesions. The patient tolerated the procedure well and was returned to the recovery room in satisfactory condition. It is to be noted that this patient, because he has had a previous knee replacement, was given 3 grams of Ancef preoperatively. MMODL / IJN: [id number] /
== END | disposition home or self-care (01) ==
LOC: OR 09:15
PROVIDERS: ATTEND Otolaryngology
DX: C01 Malignant neoplasm of base of tongue (principal); C79.89 Secondary malignant neoplasm of other specified sites; I10 Essential (primary) hypertension; E78.5 Hyperlipidemia, unspecified; I25.10 Atherosclerotic heart disease of native coronary artery without angina pectoris; J43.9 Emphysema, unspecified; E78.00 Pure hypercholesterolemia, unspecified; F17.200 Nicotine dependence, unspecified, uncomplicated; Z79.51 Long term (current) use of inhaled steroids; Z79.899 Other long term (current) drug therapy; Z95.0 Presence of cardiac pacemaker; Z79.82 Long term (current) use of aspirin; Z96.652 Presence of left artificial knee joint; Z95.1 Presence of aortocoronary bypass graft; Z98.890 Other specified postprocedural states
CPT/HCPCS: 31526; 31622; 43191; J1100 ×2; J2370; J0690; J2405; J2001; J3010; J0131; J0330; J2704

== ENCOUNTER → 2020-09-10 | Outpatient (CLI) | payer MEDICARE ==
--- NOTE | 2020-09-13 10:34 | PE ---
Nuclear medicine PET/CT HISTORY: Tongue cancer, secondary malignant neoplasm, head and neck cancer, subsequent Patient received 9.5 mCi F-18 FDG intravenously delayed scanning was performed from the skull base to mid thighs. Localization and attenuation correction CT scan was performed. Small vrxkt-iq-yele imagi ng obtained through the head and neck. Correlation to previous nuclear medicine PET/CT 04/13/2020 Chest and neck: At the posterior aspect of the tongue towards the right of midline there is a mild ar ea of hypermetabolic uptake, SUV is 4.9. Along the anterior cervical chain on the right there is some mild uptake noted in one of the nodes, SUV approximately 2.2. There is emphysematous change within t he lungs. No pleural pericardial effusion, there is a bandlike area of increased attenuation present in the left upper lobe which show some mild uptake, SUV is 3. Shotty nodes are present within the med iastinum. Aorta is dense. Coronary artery calcifications are present. Intracardiac leads are present. Minimal pericardial effusion. ABDOMEN: The level of the second and third portion of the duodenum there is a focal area of hypermeta bolic uptake present, SUV is 7.1, unclear as to whether this is within bowel or possibly a portal nod e, head of pancreas. There is some dependent high density within the gallbladder consistent with ston es. There is an abdominal wall hernia anteriorly in the supraumbilical location containing fat. Aorti c stent graft is in place. There is no ascites. No pelvic adenopathy. Osseous structures show no suspicious uptake. IMPRESSION: There is some mild residual uptake involving the tongue, right cervical node uptake is im proved compared to prior exam. Uptake within the left upper lobe may correspond to mucous plugging. I ndeterminate uptake in the right upper quadrant. Cholelithiasis. Additional findings above.
== END | disposition home or self-care (01) ==
LOC: RADPETMAIN 08:09
PROVIDERS: ATTEND Radiology Radiation Oncology
DX: C79.89 Secondary malignant neoplasm of other specified sites (principal); C02.9 Malignant neoplasm of tongue, unspecified; K80.20 Calculus of gallbladder without cholecystitis without obstruction; K43.9 Ventral hernia without obstruction or gangrene
CPT/HCPCS: 78815; A9552

== ENCOUNTER → 2020-10-15 | Outpatient (CLI) | payer MEDICARE | END | disposition home or self-care (01) | LOC: LABWHC1 12:26 | PROVIDERS: ATTEND Otolaryngology | DX: Z01.812 Encounter for preprocedural laboratory examination (principal); Z20.822 Contact with and (suspected) exposure to COVID-19 | CPT/HCPCS: U0003; C9803; U0005 ==

== ENCOUNTER 2021-01-06 13:12 | Day surgery (SDC) | payer MEDICARE ==
[2021-01-06 13:50] VITALS: RESP 18; TEMP 98.3
[2021-01-06 15:07] VITALS: BP 143/71; PULSE 71
--- NOTE | 2021-01-06 15:41 | US ---
EXAMINATION TYPE: US FNA first lesion DATE OF EXAM: 01/06/2021 COMPARISON: PET/CT 12/14/2020 HISTORY: Right neck adenopathy, abnormal PET/CT .Maximal barrier technique was utilized. After informed consent, skin overlying the lesion was local ized and the right neck with ultrasound and the overlying skin prepped and draped. Ultrasound was uti lized using sterile technique. Lidocaine was used for local anesthesia. 3 passes with a 25-gauge nee dle were made into the right neck adenopathy and aspirated specimen was submitted to cytology additio nal pass was made with a 23-gauge needle. Following the procedure hemostasis achieved. No immediate complication. The patient discharged in stable condition. IMPRESSION: STATUS POST ULTRASOUND GUIDED FINE NEEDLE ASPIRATION OF THYROID NODULE, PATHOLOGY IS PEND ING. THIS PROCEDURE WAS PERFORMED BY THE UNDERSIGNED.
== END 2021-01-06 15:06 | disposition home or self-care (01) ==
LOC: RADPROMAIN 13:12
PROVIDERS: ATTEND Otolaryngology
DX: C77.0 Secondary and unspecified malignant neoplasm of lymph nodes of head, face and neck (principal); R59.0 Localized enlarged lymph nodes; C02.9 Malignant neoplasm of tongue, unspecified
CPT/HCPCS: 10005; 88173; 88305

== ENCOUNTER → 2021-01-06 | Outpatient (CLI) | payer MEDICARE | END | disposition home or self-care (01) | LOC: LABWHC1 13:03 | PROVIDERS: ATTEND Otolaryngology | DX: Z01.812 Encounter for preprocedural laboratory examination (principal); Z20.822 Contact with and (suspected) exposure to COVID-19 | CPT/HCPCS: U0003; C9803; U0005 ==

== ENCOUNTER → 2021-01-17 | Outpatient (CLI) | payer MEDICARE ==
[2021-01-17 09:15] LABS: African American GFR (CKD) >90 (>60 ml/min/1.73 sqM); Blood Urea Nitrogen 18 mg/dL (9-20); Non-African American GFR(CKD) 82 (>60 ml/min/1.73 sqM)
--- NOTE | 2021-01-17 10:30 | CT ---
EXAMINATION TYPE: CT abdomen wo/w con DATE OF EXAM: 01/17/2021 COMPARISON: Prior CT abdomen December 09, 2018. Outside PET/CT December 14, 2020 HISTORY: Tongue cancer CT DLP: 442.80 mGycm, Automated Exposure Control for Dose Reduction was Utilized. CONTRAST: CT scan of the abdomen and pelvis is performed with oral and without and with IV Contrast, patient in jected with 100 ml mL of Isovue 300. FINDINGS: LUNG BASES: Basilar emphysematous and pulmonary fibrotic change redemonstrated. Partial visualization of right-sided pacemaker leads on current study and distal right coronary artery calcification. LIVER/GB: Caudate lobe of the liver shows new 5.1 x 2.4 cm hypodense mass on precontrast axial image 18 that shows heterogeneous enhancement less prominent than adjacent liver corresponding to the area of abnormal uptake on recent PET CTs, enlarging hypermetabolic lesion. This is immediately posterior to the patent main portal after confluence of splenic vein with SMV PANCREAS: No significant abnormality is seen. SPLEEN: No significant abnormality is seen. ADRENALS: No significant abnormality is seen. 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 Just superior to this along the lateral aspect there is sug gestion of new 2.9 x 2.0 cm heterogeneous enhancing partially exophytic right renal mass seen best im age 25 series 11. Enhancement less than the adjacent kidney. This is not clearly identified on recent PET. Renal cell carcinoma cannot be excluded. BOWEL: Patient has little intra-abdominal fat. No suspicious bowel dilatation. LYMPH NODES: No greater than 1cm abdominal lymph nodes are appreciated. OSSEOUS STRUCTURES: Multilevel spurring in the spine. OTHER: There is infrarenal aortobiiliac stent graft redemonstrated. Postcontrast images show patency without suspicious extraluminal enhancement to suggest endoleak. There is persistent ventral wall her gwen now containing fat and fluid axial series 9 image 30. IMPRESSION: New suspicious enlargement caudate lobe mass worrisome for neoplasm. New suspicious lesio n mid to lower pole right kidney worrisome for neoplasm/renal cell carcinoma just above the exophytic angiomyolipoma.
== END | disposition home or self-care (01) ==
LOC: RADCTMAIN 08:23
PROVIDERS: ATTEND Radiology Radiation Oncology
DX: C01 Malignant neoplasm of base of tongue (principal); N28.89 Other specified disorders of kidney and ureter; K43.9 Ventral hernia without obstruction or gangrene
CPT/HCPCS: 82565; 84520; 74170; 36415; Q9967

== ENCOUNTER → 2021-02-18 | Outpatient (CLI) | payer MEDICARE ==
--- NOTE | 2021-02-21 09:18 | CT ---
EXAMINATION TYPE: CT soft tissue neck w con DATE OF EXAM: 02/18/2021 5:13 PM COMPARISON: PET scan 12/14/2020 HISTORY: Tongue ca. Questionable lymphnodes in neck CT DLP: 299 mGycm Automated exposure control for dose reduction was used. CONTRAST: CT scan of the neck is performed following with IV Contrast, patient injected with 100 mL of Isovue 3 00. Axial images are obtained, coronal and sagittal reformatted images are reviewed. FINDINGS: There remains a lobulation of the right base of tongue measuring 2.7 cm. Within the right c arotid space there is a pathologic lymph node measuring a short axis of 1.5 cm. Submandibular and parotid glands have a normal appearance. Dental artifact obscures portions of the s oft tissues of neck. There is marked asymmetric lobulation the posterior nasopharynx on the right direct visualization is recommended to assess for mucosal lesion. Measures approximately 1.7 cm. Nasal septal deviation noted. Sinuses are clear. Atherosclerotic change of the vasculature. Including the carotid artery vasculature. Hypertrophic and degenerative changes of the spine. Cardiac device n oted. Artifact overlies the aorta. Lung apices demonstrate diffuse emphysematous changes. IMPRESSION: 1. There is marked lobulation measuring 2.7 cm of the right base of the tongue suggestive of neoplasm . Additionally there is a enlarged short axis lymph node measuring 1.5 cm within the right carotid sp clara. On the most recent PET scan the area of lymphadenopathy measured a short axis of 0.9 cm suggesti ve of progression. 2. There is marked lobulation the posterior nasopharynx on the right as measured above recommend dire ct visualization. Finding not seen with certainty on prior exam. Mucosal lesion in the differential d iagnosis. 3. Appears to be significant bilateral atherosclerotic change of the carotid bifurcations correlate c linically.
== END | disposition home or self-care (01) ==
LOC: RADCTMAIN 15:55
PROVIDERS: ATTEND Otolaryngology
DX: C02.9 Malignant neoplasm of tongue, unspecified (principal)
CPT/HCPCS: 82565; 84520; 70491; 36415; Q9967

== ENCOUNTER → 2021-04-05 | Outpatient (CLI) | payer MEDICARE ==
[2021-04-05 18:38] LABS: African American GFR (CKD) >90 (>60 ml/min/1.73 sqM); Blood Urea Nitrogen 21 mg/dL (9-20); Non-African American GFR(CKD) 81 (>60 ml/min/1.73 sqM)
--- NOTE | 2021-04-06 08:05 | CT ---
EXAMINATION TYPE: CT brain wo/w con DATE OF EXAM: 04/05/2021 COMPARISON: None HISTORY: Malignant neoplasm base of tongue. CT DLP: 2255.1mGycm CONTRAST: CT scan of the head is performed without and with IV Contrast, patient injected with 100 mL of Isovue 300. Unenhanced followed by contrast enhanced CT of the brain is submitted for evaluation. The ventricles are midline. Generalized atrophic changes noted. There is no evidence for intracranial hemorrhage o r extra-axial collection. No mass effects are identified. Visualized bony calvarium is intact. Con trast is administered and no enhancing lesions are detected. No pathologic enhancement is identified . If symptoms persist consider MRI. IMPRESSION: No enhancing intracranial lesion is identified at this time.
== END | disposition home or self-care (01) ==
LOC: RADCTMAIN 17:45
PROVIDERS: ATTEND Radiology Radiation Oncology
DX: C01 Malignant neoplasm of base of tongue (principal)
CPT/HCPCS: 82565; 84520; 70470; 36415; Q9967

== ENCOUNTER 2021-04-26 13:59 | Inpatient (IN) | payer MEDICARE ==
[2021-04-26] MEDS ORDERED: SODIUM CHLORIDE 0.9% 1,000 ML IV STA (15:18)
--- NOTE | 2021-04-26 15:30 | ED ---
General Adult HPI - General Chief complaint: Weakness Stated complaint: congestion, weakness Time Seen by Provider: 04/26/21 15:02 Source: patient, RN notes reviewed, old records reviewed Mode of arrival: wheelchair Limitations: no limitations - History of Present Illness Initial comments: 81-year-old male history of tongue CA currently on chemotherapy presenting for increased weakness and fatigue. Patient had contacted the primary care physician recommended the patient presented emergency department for evaluation and IV hydration. Patient does admit to decreased intake. He denies fever. He's had a mild dyspnea without cough or URI symptoms. No abdominal pain nausea vomiting. - Related Data Home Medications Medication Instructions Recorded Confirmed Aspirin EC [Ecotrin Low Dose] 81 mg PO HS 06/16/19 01/03/21 Tamsulosin [Flomax] 0.4 mg PO BID 06/16/19 01/03/21 Budesonide-Formot 160-4.5 Mcg 1 puff INHALATION BID 03/24/20 01/03/21 [Symbicort 160-4.5 Mcg Inhaler] Multivitamins, Thera [Multivitamin 1 tab PO DAILY 03/24/20 01/03/21 (formulary)] Simvastatin 40 mg PO HS 03/24/20 01/03/21 Metoprolol Succinate [Toprol XL] 10 mg PO DAILY 01/03/21 01/03/21 Naproxen Sodium [Aleve] 220 mg PO DAILY PRN 01/03/21 01/03/21 Non Formulary Drug 1 each PO DAILY 01/03/21 01/03/21 Previous Rx's Medication Instructions Recorded Ipratropium/Albuterol Sulfate 1 puff INHALATION QID PRN #1 06/17/19 [Combivent Respimat Inhaler] inhaler Montelukast [Singulair] 10 mg PO HS #30 tab 06/17/19 Allergies Allergy/AdvReac Type Severity Reaction Status Date / Time No Known Allergies Allergy Verified 04/26/21 14:56 Review of Systems ROS Statement: Those systems with pertinent positive or pertinent negative responses have been documented in the HPI. ROS Other: All systems not noted in ROS Statement are negative. Past Medical History Past Medical History: Cancer, COPD, Hyperlipidemia, Hypertension, Prostate Disorder Additional Past Medical History / Comment(s): AAA, tongue cancer History of Any Multi-Drug Resistant Organisms: None Reported Past Surgical History: Joint Replacement, Pacemaker Additional Past Surgical History / Comment(s): tongue mass removed 03/26/20, [employer]tr[employer] Pacemaker Jun 2019, left knee replacement, 2 left knee surgeries, surgery for snoring. Past Anesthesia/Blood Transfusion Reactions: No Reported Reaction Type of Cardiac Device: Unknown Device Placement Date:: 06/16/19 Past Psychological History: No Psychological Hx Reported Smoking Status: Current every day smoker Past Alcohol Use History: Rare Past Drug Use History: None Reported - Past Family History family Family Medical History: No Reported History General Exam Limitations: no limitations General appearance: alert, in no apparent distress Head exam: Present: atraumatic, normocephalic Eye exam: Present: normal appearance, PERRL ENT exam: Present: mucous membranes dry Neck exam: Present: normal inspection. Absent: tenderness, meningismus Respiratory exam: Present: normal lung sounds bilaterally. Absent: respiratory distress, wheezes Cardiovascular Exam: Present: regular rate, normal rhythm GI/Abdominal exam: Present: soft. Absent: distended, tenderness, guarding, rebound Extremities exam: Present: normal inspection, normal capillary refill. Absent: pedal edema Neurological exam: Present: alert, oriented X3, CN II-XII intact. Absent: motor sensory deficit Psychiatric exam: Present: normal affect, normal mood Skin exam: Present: warm, dry, intact. Absent: cyanosis, diaphoretic Course Vital Signs 04/26/21 04/26/21 14:45 16:09 Temperature 98.3 F Pulse Rate 61 72 Respiratory 19 18 Rate Blood Pressure 90/52 125/68 O2 Sat by Pulse 95 95 Oximetry EKG Findings - EKG Comments: EKG Findings:: Atrial sensed ventricular paced rhythm rate of 73, NC interval 180, QRS duration 196, QTC 480 Medical Decision Making - Medical Decision Making 81-year-old male presents for increased fatigue, mild dyspnea.. History of COPD and tongue cancer. He is currently on chemotherapy. He was sent in by primary care physician for evaluation. Patient has a normal white blood cell count 7.3, he is anemic with hemoglobin of 8.9. He denies any rectal bleeding. This may be secondary to chemotherapy. He has a mild hyponatremia. His coronavirus testing is negative. Troponin is negative. Urinalysis pending. Chest x-ray does show concern for some increased infiltrate. Given the dyspnea he started on a antibiotics. He will be admitted to Dr. Ramos who is aware. He'll be treated for COPD as well as pneumonia and dehydration. - Lab Data Result diagrams: 04/26/21 15:25 04/26/21 15:25 Lab Results 04/26/21 04/26/21 04/26/21 Range/Units 15:25 15:25 15:25 WBC 7.3 (3.8-10.6) k/uL RBC 2.39 L (4.30-5.90) m/uL Hgb 8.9 L (13.0-17.5) gm/dL Hct 25.4 L (39.0-53.0) % MCV 106.2 H (80.0-100.0) fL MCH 37.3 H (25.0-35.0) pg MCHC 35.2 (31.0-37.0) g/dL RDW 12.9 (11.5-15.5) % Plt Count 214 (150-450) k/uL MPV 8.2 Neutrophils % 87 % Lymphocytes % 4 % Monocytes % 6 % Eosinophils % 0 % Basophils % 0 % Neutrophils # 6.4 (1.3-7.7) k/uL Lymphocytes # 0.3 L (1.0-4.8) k/uL Monocytes # 0.4 (0-1.0) k/uL Eosinophils # 0.0 (0-0.7) k/uL Basophils # 0.0 (0-0.2) k/uL Macrocytosis Slight PT 10.6 (9.0-12.0) sec INR 1.0 (<1.2) APTT 20.3 L (22.0-30.0) sec Sodium 133 L (137-145) mmol/L Potassium 3.6 (3.5-5.1) mmol/L Chloride 100 (98-107) mmol/L Carbon Dioxide 25 (22-30) mmol/L Anion Gap 8 mmol/L BUN 46 H (9-20) mg/dL Creatinine 1.04 (0.66-1.25) mg/dL Est GFR (CKD-EPI)AfAm 78 (>60 ml/min/1.73 sqM) Est GFR (CKD-EPI)NonAf 68 (>60 ml/min/1.73 sqM) Glucose 112 H (74-99) mg/dL Plasma Lactic Acid Speedy (0.7-2.0) mmol/L Calcium 10.0 (8.4-10.2) mg/dL Magnesium 1.9 (1.6-2.3) mg/dL Total Bilirubin 0.6 (0.2-1.3) mg/dL AST 29 (17-59) U/L ALT 28 (4-49) U/L Alkaline Phosphatase 78 (38-126) U/L Troponin I (0.000-0.034) ng/mL NT-Pro-B Natriuret Pep pg/mL Total Protein 6.4 (6.3-8.2) g/dL Albumin 3.2 L (3.5-5.0) g/dL Coronavirus (PCR) (Not Detectd) 04/26/21 04/26/21 04/26/21 Range/Units 15:25 15:25 15:25 WBC (3.8-10.6) k/uL RBC (4.30-5.90) m/uL Hgb (13.0-17.5) gm/dL Hct (39.0-53.0) % MCV (80.0-100.0) fL MCH (25.0-35.0) pg MCHC (31.0-37.0) g/dL RDW (11.5-15.5) % Plt Count (150-450) k/uL MPV Neutrophils % % Lymphocytes % % Monocytes % % Eosinophils % % Basophils % % Neutrophils # (1.3-7.7) k/uL Lymphocytes # (1.0-4.8) k/uL Monocytes # (0-1.0) k/uL Eosinophils # (0-0.7) k/uL Basophils # (0-0.2) k/uL Macrocytosis PT (9.0-12.0) sec INR (<1.2) APTT (22.0-30.0) sec Sodium (137-145) mmol/L Potassium (3.5-5.1) mmol/L Chloride (98-107) mmol/L Carbon Dioxide (22-30) mmol/L Anion Gap mmol/L BUN (9-20) mg/dL Creatinine (0.66-1.25) mg/dL Est GFR (CKD-EPI)AfAm (>60 ml/min/1.73 sqM) Est GFR (CKD-EPI)NonAf (>60 ml/min/1.73 sqM) Glucose (74-99) mg/dL Plasma Lactic Acid Speedy 1.6 (0.7-2.0) mmol/L Calcium (8.4-10.2) mg/dL Magnesium (1.6-2.3) mg/dL Total Bilirubin (0.2-1.3) mg/dL AST (17-59) U/L ALT (4-49) U/L Alkaline Phosphatase (38-126) U/L Troponin I <0.012 (0.000-0.034) ng/mL NT-Pro-B Natriuret Pep 3640 pg/mL Total Protein (6.3-8.2) g/dL Albumin (3.5-5.0) g/dL Coronavirus (PCR) (Not Detectd) 04/26/21 Range/Units 15:25 WBC (3.8-10.6) k/uL RBC (4.30-5.90) m/uL Hgb (13.0-17.5) gm/dL Hct (39.0-53.0) % MCV (80.0-100.0) fL MCH (25.0-35.0) pg MCHC (31.0-37.0) g/dL RDW (11.5-15.5) % Plt Count (150-450) k/uL MPV Neutrophils % % Lymphocytes % % Monocytes % % Eosinophils % % Basophils % % Neutrophils # (1.3-7.7) k/uL Lymphocytes # (1.0-4.8) k/uL Monocytes # (0-1.0) k/uL Eosinophils # (0-0.7) k/uL Basophils # (0-0.2) k/uL Macrocytosis PT (9.0-12.0) sec INR (<1.2) APTT (22.0-30.0) sec Sodium (137-145) mmol/L Potassium (3.5-5.1) mmol/L Chloride (98-107) mmol/L Carbon Dioxide (22-30) mmol/L Anion Gap mmol/L BUN (9-20) mg/dL Creatinine (0.66-1.25) mg/dL Est GFR (CKD-EPI)AfAm (>60 ml/min/1.73 sqM) Est GFR (CKD-EPI)NonAf (>60 ml/min/1.73 sqM) Glucose (74-99) mg/dL Plasma Lactic Acid Speedy (0.7-2.0) mmol/L Calcium (8.4-10.2) mg/dL Magnesium (1.6-2.3) mg/dL Total Bilirubin (0.2-1.3) mg/dL AST (17-59) U/L ALT (4-49) U/L Alkaline Phosphatase (38-126) U/L Troponin I (0.000-0.034) ng/mL NT-Pro-B Natriuret Pep pg/mL Total Protein (6.3-8.2) g/dL Albumin (3.5-5.0) g/dL Coronavirus (PCR) Not Detected (Not Detectd) Disposition Clinical Impression: Dehydration, Pneumonia, COPD (chronic obstructive pulmonary disease) Disposition: ADMITTED IP TO THIS [facility] Condition: Stable Is patient prescribed a controlled substance at d/c from ED?: No Referrals: Payam Ramos MD [Primary Care Provider] - 1-2 days Decision to Admit Reason: Admit from EC Decision Date: 04/26/21 Decision Time: 17:06
[2021-04-26 15:48] LABS: Basophils % (A) 0 %; Eosinophils % (A) 0 %; HCT 25.4 % (39.0-53.0); HGB 8.9 gm/dL (13.0-17.5); Lymphocytes # (A) 0.3 k/uL (1.0-4.8); Lymphocytes % (A) 4 %; MCH 37.3 pg (25.0-35.0); MCHC 35.2 g/dL (31.0-37.0); MCV 106.2 fL (80.0-100.0); Macrocytosis Slight; Mean Platelet Volume 8.2; Monocytes # (A) 0.4 k/uL (0-1.0); Monocytes % (A) 6 %; Neutrophils # (A) 6.4 k/uL (1.3-7.7); Neutrophils % (A) 87 %; Platelet Count 214 k/uL (150-450); RBC 2.39 m/uL (4.30-5.90); RDW 12.9 % (11.5-15.5); WBC 7.3 k/uL (3.8-10.6)
[2021-04-26 15:57] LABS: Albumin 3.2 g/dL (3.5-5.0); Magnesium 1.9 mg/dL (1.6-2.3); Potassium 3.6 mmol/L (3.5-5.1); Total Bilirubin 0.6 mg/dL (0.2-1.3); Total Protein 6.4 g/dL (6.3-8.2)
[2021-04-26 16:17] VITALS: RESP 18
[2021-04-26 16:18] LABS: Prothrombin Time 10.6 sec (9.0-12.0)
--- NOTE | 2021-04-26 16:23 | XR ---
EXAMINATION TYPE: XR chest 2V DATE OF EXAM: 04/26/2021 COMPARISON: Chest x-ray June 17, 2019 HISTORY: Weakness. TECHNIQUE: Frontal and lateral views of the chest are obtained. FINDINGS: Cardiac silhouette size is stable and mildly enlarged with dual lead pacemaker and atherosc lerotic thoracic aorta. Osseous structures are demineralized with degenerative change right glenohume ral joint. Chronic emphysematous change with new multifocal left mid to lower lung opacities. Right b asilar opacity redemonstrated. No pleural effusion or pneumothorax seen bilaterally. IMPRESSION: Mild cardiomegaly and chronic emphysematous change with left mid to lower lung acute inf iltrates now present. Right basal opacity could reflect chronic scarring, areas of new acute infiltra te not excluded. Progress study advised.
[2021-04-26 16:26] LABS: Partial Thromboplastin Time 20.3 sec (22.0-30.0)
[2021-04-26] MEDS ORDERED: AZITHROMYCIN 500 MG in SODIUM CHLORIDE 0.9% 250 ML IVPB STA (17:01)
[2021-04-26] MEDS ORDERED: cefTRIAXone IN SWFI 1,000 MG/10 ML SYRINGE IVP STA (17:01)
[2021-04-26] MEDS ORDERED: IPRATROPIUM-ALBUTEROL 3 ML NEB INHALATION PRN (17:03)
[2021-04-26 17:28] LABS: Appearance,Urine Clear (Clear); Bacteria,Urine Rare /hpf; Bilirubin,Urine Negative (Negative); Blood,Urine Negative (Negative); Color,Urine Yellow; Glucose,Urine (UA) Negative (Negative); Ketones,Urine Negative (Negative); Leukocyte Esterase,Urine Negative (Negative); Mucus,Urine Rare /hpf; Nitrite,Urine Negative (Negative); PH, Urine 5.5 (5.0-8.0); Protein,Urine 1+ (Negative); RBC,Urine 2 /hpf (0-5); Specific Gravity,Urine 1.018 (1.001-1.035); Urobilinogen,Urine <2.0 mg/dL (<2.0); WBC,Urine 1 /hpf (0-5)
--- NOTE | 2021-04-26 18:09 | CT ---
EXAMINATION TYPE: CT chest wo con DATE OF EXAM: 04/26/2021 COMPARISON: PET/CT scan 12/14/2020 HISTORY: SOB, COPD CT DLP: 261.7 mGycm Automated exposure control for dose reduction was used. Images obtained from the thoracic inlet to the diaphragm without contrast. There is pulmonary hyperinflation and flattening of the diaphragm. There is diffuse bullous pulmonary emphysema. There is some patchy airspace consolidation in the left lower lobe. There is a smaller in filtrate right lower lobe. There is no pleural effusion. Heart size is normal. There is coronary russell ry calcification. There are no hilar masses. There is no mediastinal adenopathy. Thoracic aorta is at heromatous. There is a 4 x 1 cm linear infiltrate in the left upper lobe anteriorly. There is degenerative spurring in the thoracic spine. There is no compression fracture. Sternum is in tact. There is left side perinephric edema. There is no definite hydronephrosis. There are small calc ifications in the right kidney and some of these are vascular. No hydronephrosis seen. IMPRESSION: COPD. There is bilateral lower lobe pneumonia that is much worse on the left side that is a change co mpared to old exam. Extensive bullous pulmonary emphysema. There is left-sided perinephric edema which is new compared to old exam. Clinical significance is not clear.
[2021-04-26] MEDS: SODIUM CHLORIDE 0.9% 1,000 ML IV SCH (18:38)
[2021-04-26] MEDS: methylPREDNISolone SOD SUCCI 125 MG/2 ML VIAL IV SCH (18:47)
[2021-04-26] MEDS: IPRATROPIUM-ALBUTEROL 3 ML NEB INHALATION SCH (19:24)
[2021-04-26] MEDS: MONTELUKAST 10 MG TAB PO SCH (21:11)
[2021-04-26] MEDS: ASPIRIN 81 MG PO SCH (21:11)
[2021-04-26] MEDS: ATORVASTATIN 20 MG TAB PO SCH (21:11)
[2021-04-27] MEDS: PIPERACILLIN-TAZOBACTAM 3.375 GM in SODIUM CHLORIDE 0.9% 100 ML IVPB SCH ×4 (00:25→23:43)
[2021-04-27] MEDS: methylPREDNISolone SOD SUCCI 125 MG/2 ML VIAL IV SCH ×5 (00:25→23:41)
--- NOTE | 2021-04-27 01:32 | HP ---
HISTORY AND PHYSICAL 81-year-old white male comes in with weakness, congestion, history of tongue cancer, currently on chemotherapy. He had chemotherapy about 10-14 days ago. He came in with severe dehydration, shortness of breath, normally takes up to 2 L at home. He is currently saturating low 90s on 6 L. He was negative for Covid. CT scan showed bilateral pneumonia and acute respiratory distress. Home medicines include aspirin 81 mg daily, Flomax 0.4 mg b.i.d., budesonide, Symbicort 160/4.5 two puffs b.i.d., multivitamin daily, simvastatin 40 daily, Toprol-XL 10 mg daily, Naprosyn 220 daily. ALLERGIES: No known drug allergies. REVIEW OF SYMPTOMS: 14-point review of systems negative except for mentioned in HPI. PAST MEDICAL HISTORY: Lung cancer, COPD, throat cancer, tongue cancer, hypertension, dyslipidemia, bullous emphysema, prostate, BPH, joint replacement, pacemaker, AAA repair, tongue cancer. PAST SURGICAL HISTORY: Two left knee surgeries, surgery for snoring, pacemaker, left knee replacement, tongue mass removed 03/26/2020. SOCIAL HISTORY: Current everyday smoker. FAMILY HISTORY: Mother heart disease. HISTORY OF PRESENT ILLNESS: Saturating is 92 on 5 to 6 L currently, pulse is 61 to 72, respiratory 18 to 25, blood pressure is 90s to 125 over 50s to 60s, temp 98.3. LUNGS scattered rhonchi and wheeze. Decreased breath sounds x4. PSYCH: Fair mood and affect. NEUROLOGIC: Cranial nerves are intact. INTEGUMENT: Dry skin turgor. Dry mucous membranes. Poor skin turgor. ENDOCRINE: Thin and cachectic. HEMATOLOGY: Negative Homans. EKG shows atrial sensed ventricular paced rhythm. ASSESSMENT: 1. Fatigue. 2. Acute on chronic respiratory distress with worsening respiratory distress requiring 1-2 L now up to 6 L. 3. Bilateral pneumonia seen on CAT scan. 4. History of lung cancer. 5. Chronic obstructive pulmonary disease. 6. Tongue cancer metastatic into the liver, chemotherapy 2 weeks ago. Hemoglobin is 8.9, down from 15, last time he was here. Denies any rectal bleeding secondary to possible chemotherapy-induced worsening of his hemoglobin 5/6 points. Covid was negative. Troponins negative. He needs broad-spectrum antibiotics steroids, updraft treatments. Infectious Disease and Pulmonary consult. PROGNOSIS: Extremely guarded as history of lung cancer with acute immunosuppression secondary chemotherapy, treated with broad-spectrum antibiotics. He is DNR. Prognosis extremely guarded. He is having ventricular paced rhythm and some arrhythmias. MMODL / IJN: [id number] /
[2021-04-27] MEDS: SODIUM CHLORIDE 0.9% 1,000 ML IV SCH ×2 (05:30→16:39)
[2021-04-27] MEDS: IPRATROPIUM-ALBUTEROL 3 ML NEB INHALATION SCH ×4 (07:25→19:57)
[2021-04-27] MEDS: MULTIVITAMINS, THERA 1 EACH TAB PO SCH (07:56)
[2021-04-27] MEDS: METOPROLOL SUCCINATE (ER) 25 MG TAB.ER.24H PO SCH (07:56)
[2021-04-27 13:52] VITALS: BMI 18.6
--- NOTE | 2021-04-27 15:38 | P.CRDCN ---
History of Present Illness Consult date: 04/27/21 Chief complaint: Heart failure management History of present illness: The patient is a pleasant 81-year-old gentleman with a past medical history significant for permanent pacemaker implantation as well as cardiomyopathy who was referred to go to the hospital for further evaluation of progressive fatigue and generalized weakness. The patient was diagnosed recently with cancer involving tongue and currently he is on chemotherapy. He reports beside the symptoms of generalized weakness and fatigue symptoms of being more weak. The patient reports no symptoms of exertional dyspnea or orthopnea or PND. He reports no symptoms of chest pain or chest discomfort. He has no symptoms of fever or chills and no sputum or cough production. Apparently he was found to be dehydrated when he presented to the hospital and currently he is on IV fluid he stated he is feeling somewhat better. He underwent a workup including a chest x-ray showed bilateral infiltrate. His blood work came in to be unremarkable beside anemia. The EKG showed biventricular pacing. The patient was seen by our service in 2019 where an echocardiogram revealed mild c ardiomyopathy was EF between 45-50%. At that point he underwent permanent pacemaker implantation when he was found to be in complete heart block. On examination today the patient doesn't seems to be in any overt congestive heart failure. He does have diminished breathing sounds bilaterally but no JVD and no bilateral lower extent his edema noted. Past Medical History Past Medical History: Cancer, COPD, Hyperlipidemia, Hypertension, Prostate Disorder Additional Past Medical History / Comment(s): AAA, tongue cancer History of Any Multi-Drug Resistant Organisms: None Reported Past Surgical History: Joint Replacement, Pacemaker Additional Past Surgical History / Comment(s): tongue mass removed 03/26/20, [employer] Pacemaker Jun 2019, left knee replacement, 2 left knee surgeries, surgery for snoring. Past Anesthesia/Blood Transfusion Reactions: No Reported Reaction Type of Cardiac Device: Unknown Device Placement Date:: 06/16/19 Past Psychological History: No Psychological Hx Reported Smoking Status: Current every day smoker Past Alcohol Use History: Rare Additional Past Alcohol Use History / Comment(s): Smokes 1/2 PPD X 50 yrs. Past Drug Use History: None Reported - Past Family History family Family Medical History: No Reported History Medications and Allergies Home Medications Medication Instructions Recorded Confirmed Type Aspirin EC [Ecotrin Low Dose] 81 mg PO HS 06/16/19 04/26/21 History Tamsulosin [Flomax] 0.4 mg PO BID 06/16/19 04/26/21 History Budesonide-Formot 160-4.5 Mcg 2 puff INHALATION RT-DAILY 03/24/20 04/26/21 History [Symbicort 160-4.5 Mcg Inhaler] Multivitamins, Thera [Multivitamin 1 tab PO DAILY 03/24/20 04/26/21 History (formulary)] Simvastatin 40 mg PO HS 03/24/20 04/26/21 History Apricot Kernals Supplement 1 tab PO DAILY 04/26/21 04/26/21 History Docusate [Colace] 100 mg PO BID 04/26/21 04/26/21 History Ipratropium-Albuterol Nebulize 3 ml INHALATION RT-TID 04/26/21 04/26/21 History [Duoneb 0.5 mg-3 mg/3 ml Soln] Metoprolol Succinate (ER) [Toprol 50 mg PO HS 04/26/21 04/26/21 History Xl] Montelukast [Singulair] 10 mg PO DAILY 04/26/21 04/26/21 History Ondansetron [Zofran] 4 mg PO Q8HR PRN 04/26/21 04/26/21 History Allergies Allergy/AdvReac Type Severity Reaction Status Date / Time No Known Allergies Allergy Verified 04/26/21 18:33 Physical Exam Vitals: Vital Signs Temp Pulse Pulse Pulse Resp BP BP 04/27/21 15:24 76 04/27/21 11:37 97.4 F L 70 18 04/27/21 11:25 76 04/27/21 11:13 76 04/27/21 07:35 72 04/27/21 07:25 72 04/27/21 05:19 97.6 F 77 122/60 04/27/21 05:12 18 04/26/21 22:40 97.4 F L 64 18 138/65 04/26/21 21:27 98.2 F 79 18 132/65 04/26/21 19:34 71 04/26/21 19:24 76 04/26/21 17:21 68 18 114/69 04/26/21 16:09 72 18 125/68 BP Pulse Ox 04/27/21 15:24 04/27/21 11:37 135/67 96 04/27/21 11:25 04/27/21 11:13 04/27/21 07:35 04/27/21 07:25 04/27/21 05:19 93 L 04/27/21 05:12 04/26/21 22:40 93 L 04/26/21 21:27 94 L 04/26/21 19:34 04/26/21 19:24 04/26/21 17:21 92 L 04/26/21 16:09 95 Intake and Output 04/27/21 04/27/21 04/27/21 06:59 14:59 22:59 Output Total 550 Balance -550 Output: Urine 550 Other: Voiding Method Toilet # Voids 1 Weight 58.967 kg - Constitutional General appearance: no acute distress - Respiratory Respiratory: bilateral: diminished - Cardiovascular Rhythm: regular Heart sounds: normal: S1, S2 Abnormal Heart Sounds: systolic murmur Results 04/26/21 15:25 04/26/21 15:25 Cardiac Enzymes 04/26/21 04/26/21 04/27/21 Range/Units 15:25 15:25 00:46 AST 29 (17-59) U/L Troponin I <0.012 <0.012 (0.000-0.034) ng/mL Coagulation 04/26/21 Range/Units 15:25 PT 10.6 (9.0-12.0) sec APTT 20.3 L (22.0-30.0) sec CBC 04/26/21 Range/Units 15:25 WBC 7.3 (3.8-10.6) k/uL RBC 2.39 L (4.30-5.90) m/uL Hgb 8.9 L (13.0-17.5) gm/dL Hct 25.4 L (39.0-53.0) % Plt Count 214 (150-450) k/uL Comprehensive Metabolic Panel 04/26/21 Range/Units 15:25 Sodium 133 L (137-145) mmol/L Potassium 3.6 (3.5-5.1) mmol/L Chloride 100 (98-107) mmol/L Carbon Dioxide 25 (22-30) mmol/L BUN 46 H (9-20) mg/dL Creatinine 1.04 (0.66-1.25) mg/dL Glucose 112 H (74-99) mg/dL Calcium 10.0 (8.4-10.2) mg/dL AST 29 (17-59) U/L ALT 28 (4-49) U/L Alkaline Phosphatase 78 (38-126) U/L Total Protein 6.4 (6.3-8.2) g/dL Albumin 3.2 L (3.5-5.0) g/dL Current Medications Generic Name Dose Route Start Last Admin Trade Name Freq PRN Reason Stop Dose Admin Albuterol/Ipratropium 3 ml 04/26/21 17:03 Ipratropium-Albuterol 3 Ml Neb INHALATION RT-Q4H PRN Shortness Of Breath Or Wheezing Albuterol/Ipratropium 3 ml 04/26/21 20:00 04/27/21 15:24 Ipratropium-Albuterol 3 Ml Neb INHALATION 3 ml RT-QID VESNA Administration Aspirin 81 mg 04/26/21 21:00 04/26/21 21:11 Aspirin 81 Mg PO 81 mg HS VESNA Administration Atorvastatin Calcium 20 mg 04/26/21 21:00 04/26/21 21:11 Atorvastatin 20 Mg Tab PO 20 mg HS VESNA Administration Dronabinol 2.5 mg 04/27/21 17:30 Dronabinol 2.5 Mg Cap PO AC-BID VESNA Sodium Chloride 1,000 mls @ 75 mls/hr 04/26/21 17:15 04/27/21 05:30 Saline 0.9% IV 75 mls/hr .[id number] VESNA Administration Piperacillin Sod/Tazobactam 100 mls @ 25 mls/hr 04/27/21 00:00 04/27/21 07:56 Sod 3.375 gm/ Sodium Chloride IVPB 25 mls/hr Q8HR VESNA Administration Azithromycin 500 mg/ Sodium 250 mls @ 250 mls/hr 04/27/21 18:00 Chloride IVPB Q24H VESNA Methylprednisolone Sodium Succinate 60 mg 04/26/21 18:00 04/27/21 12:48 Methylprednisolone Sod Succi 125 Mg/2 Ml Vial IV 60 mg Q6HR VESNA Administration Metoprolol Succinate 10 mg 04/27/21 09:00 04/27/21 07:56 Metoprolol Succinate (Er) 25 Mg Tab.Er.24h PO 10 mg DAILY VESNA Administration Montelukast Sodium 10 mg 04/26/21 21:00 04/26/21 21:11 Montelukast 10 Mg Tab PO 10 mg HS VESNA Administration Multivitamins 1 each 04/27/21 09:00 04/27/21 07:56 Multivitamins, Thera 1 Each Tab PO 1 each DAILY VESNA Administration Intake and Output 04/27/21 04/27/21 04/27/21 06:59 14:59 22:59 Output Total 550 Balance -550 Output: Urine 550 Other: Voiding Method Toilet # Voids 1 Weight 58.967 kg Patient Weight 04/28/21 06:59 Weight 58.967 kg 04/26/21 15:25 04/26/21 15:25 Assessment and Plan Assessment: Assessment #1 generalized weakness and fatigue #2 dehydration probably related to decreased oral intake #3 permanent pacemaker implantation #4 history of cancer currently on chemotherapy #5 multiple comorbid conditions Plan #1 continue IV hydration #2 the patient doesn't seem in any overt congestive heart failure at this point and he seems to be somewhat euvolemic #3 continue monitor for any signs of heart failure #4 possible discharge in the next 12-24 hours
[2021-04-27 17:06] LABS: Basophils % (A) 0 %; Eosinophils % (A) 0 %; HCT 25.2 % (39.0-53.0); HGB 8.5 gm/dL (13.0-17.5); Lymphocytes # (A) 0.3 k/uL (1.0-4.8); Lymphocytes % (A) 2 %; MCH 37.5 pg (25.0-35.0); MCHC 33.6 g/dL (31.0-37.0); Macrocytosis Marked; Mean Platelet Volume 8.3; Monocytes # (A) 0.4 k/uL (0-1.0); Monocytes % (A) 3 %; Neutrophils # (A) 10.8 k/uL (1.3-7.7); Neutrophils % (A) 94 %; Platelet Count 239 k/uL (150-450); RBC 2.26 m/uL (4.30-5.90); RDW 13.9 % (11.5-15.5); WBC 11.5 k/uL (3.8-10.6)
[2021-04-27 17:17] LABS: MCV 111.7 fL (80.0-100.0)
--- NOTE | 2021-04-27 17:27 | P.CONS ---
History of Present Illness - Reason for Consult Consult date: 04/27/21 Glossal malignancy Requesting physician: Payam Ramos - Chief Complaint SOB - History of Present Illness Mr. Troy is a very pleasant 81-year-old male patient of Dr. Bell who first noticed a lump in the right neck 10/24. The been progressive in size and began causing difficulty in swallowing. He was seen by PCP 02/23. CT 02/25/20 showed irregular soft tissue at the right base of the tongue 2.5 x 1.6 cm, right neck mass was an enlarged submandibular node, 2.2 x 1.7 cm. He was referred to ENT, microlaryngoscopy 03/26/20 revealed irregular mucosa at the base of the tongue, no definite mass, multiple biopsies positive for invasive, moderately differentiated squamous cell carcinoma. Staging PET scan showed uptake in the primary site as well as the enlarged submandibular node. There was some nonspecific linear uptake in the right anterior chest wall and in the prostate. Patient had known elevated PSA, stable and being followed by Dr. Short. Patient was started on concurrent chemo/RT completing treatment 06/14/20. He continued to follow up and did well until PET scan 12/25 showed an area of uptake in a small node in the right neck and an area in the hilum of the liver. He was evaluated by ENT, al biopsies were negative and the findings in the lung were felt to be nonspecific. There was also a suspicious Hepatic node was suspicious. PSA was elevated a little from baseline at that time. He had a repeat FNA of the right neck node 01/06/21, now positive for squamous. 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 Case was discussed at [facility]. Recs were systemic therapy for the small cell cancer would have a reasonable chance of being effective against head and neck cancer. He had his first cycle of carbo/[employer]/tecentriq 04/06/21, he was due for cycle #2 today but over the last week, he states he hasn't been feeling well and canceled. He complains of progressive weakness, cough, decrease in appetite. He denies any fevers, nausea, acute changes in bowel or bladder habits. Imaging of the chest surgeon ammonia possibly left greater than right. Review of Systems 10 point review of systems is negative except as stated in HPI Past Medical History Past Medical History: Cancer, COPD, Hyperlipidemia, Hypertension, Prostate Disorder Additional Past Medical History / Comment(s): AAA, tongue cancer History of Any Multi-Drug Resistant Organisms: None Reported Past Surgical History: Joint Replacement, Pacemaker Additional Past Surgical History / Comment(s): tongue mass removed 03/26/20, [employer]tr[employer] Pacemaker Jun 2019, left knee replacement, 2 left knee surgeries, surgery for snoring. Past Anesthesia/Blood Transfusion Reactions: No Reported Reaction Type of Cardiac Device: Unknown Device Placement Date:: 06/16/19 Past Psychological History: No Psychological Hx Reported Smoking Status: Current every day smoker Past Alcohol Use History: Rare Additional Past Alcohol Use History / Comment(s): Smokes 1/2 PPD X 50 yrs. Past Drug Use History: None Reported - Past Family History family Family Medical History: No Reported History Medications and Allergies Home Medications Medication Instructions Recorded Confirmed Type Aspirin EC [Ecotrin Low Dose] 81 mg PO HS 06/16/19 04/26/21 History Tamsulosin [Flomax] 0.4 mg PO BID 06/16/19 04/26/21 History Budesonide-Formot 160-4.5 Mcg 2 puff INHALATION RT-DAILY 03/24/20 04/26/21 History [Symbicort 160-4.5 Mcg Inhaler] Multivitamins, Thera [Multivitamin 1 tab PO DAILY 03/24/20 04/26/21 History (formulary)] Simvastatin 40 mg PO HS 03/24/20 04/26/21 History Apricot Kernals Supplement 1 tab PO DAILY 04/26/21 04/26/21 History Docusate [Colace] 100 mg PO BID 04/26/21 04/26/21 History Ipratropium-Albuterol Nebulize 3 ml INHALATION RT-TID 04/26/21 04/26/21 History [Duoneb 0.5 mg-3 mg/3 ml Soln] Metoprolol Succinate (ER) [Toprol 50 mg PO HS 04/26/21 04/26/21 History Xl] Montelukast [Singulair] 10 mg PO DAILY 04/26/21 04/26/21 History Ondansetron [Zofran] 4 mg PO Q8HR PRN 04/26/21 04/26/21 History Allergies Allergy/AdvReac Type Severity Reaction Status Date / Time No Known Allergies Allergy Verified 04/26/21 18:33 Physical Exam Vitals: Vital Signs Temp Pulse Pulse Resp BP BP Pulse Ox 04/27/21 07:35 72 04/27/21 07:25 72 04/27/21 05:19 97.6 F 77 122/60 93 L 04/27/21 05:12 18 04/26/21 22:40 97.4 F L 64 18 138/65 93 L 04/26/21 21:27 98.2 F 79 18 132/65 94 L 04/26/21 19:34 71 04/26/21 19:24 76 04/26/21 17:21 68 18 114/69 92 L 04/26/21 16:09 72 18 125/68 95 04/26/21 14:45 98.3 F 61 19 90/52 95 Intake and Output 04/26/21 04/27/21 04/27/21 22:59 06:59 14:59 Intake Total 1000 Output Total 550 Balance 1000 -550 Intake: Intake, IV Titration 700 Amount Azithromycin 500 mg In 250 Sodium Chloride 0.9% 250 ml @ 250 mls/hr IVPB ONCE [facility] Rx#:[id number] Piperacillin-Tazobactam 3 100 .375 gm In Sodium Chloride 0.9% 100 ml @ 25 mls/hr IVPB Q8HR [facility] Rx# :[id number] Sodium Chloride 0.9% 1, 350 000 ml @ 75 mls/hr IV . [id number] [facility] Rx#:[id number] Oral 300 Output: Urine 550 Other: Voiding Method Toilet Toilet # Voids 2 1 Weight 58.967 kg - Constitutional General appearance: cooperative, no acute distress, thin - EENT Eyes: anicteric sclerae, EOMI ENT: hearing grossly normal, normal oropharynx - Neck Neck: lymphadenopathy (Right submandibular, softer/less distinct) - Respiratory Respiratory: bilateral: rales (few scattered) - Cardiovascular lt chest wall pacer/defib Rhythm: regular Heart sounds: normal: S1, S2 Abnormal Heart Sounds: no systolic murmur, no diastolic murmur, no rub, no S3 Gallop, no S4 Gallop, no click, no other - Gastrointestinal General gastrointestinal: no absent bowel sounds, no decreased bowel sounds, no distended, no hepatomegaly, no hyperactive bowel sounds, normal bowel sounds, no organomegaly, no rigid, no scaphoid, soft, no splenomegaly, no tenderness, no umbilical hernia, no ventral hernia - Integumentary Integumentary: normal - Neurologic Neurologic: CNII-XII intact - Musculoskeletal Musculoskeletal: strength equal bilaterally - Psychiatric Psychiatric: A&O x's 3, appropriate affect, intact judgment & insight Results CBC & Chem 7: 04/26/21 15:25 04/26/21 15:25 Labs: Abnormal Lab Results - Last 24 Hours (Table) 04/26/21 04/26/21 04/26/21 Range/Units 15:25 15:25 15:25 RBC 2.39 L (4.30-5.90) m/uL Hgb 8.9 L (13.0-17.5) gm/dL Hct 25.4 L (39.0-53.0) % MCV 106.2 H (80.0-100.0) fL MCH 37.3 H (25.0-35.0) pg Lymphocytes # 0.3 L (1.0-4.8) k/uL APTT 20.3 L (22.0-30.0) sec Sodium 133 L (137-145) mmol/L BUN 46 H (9-20) mg/dL Glucose 112 H (74-99) mg/dL Albumin 3.2 L (3.5-5.0) g/dL Urine Protein (Negative) Urine Bacteria (None) /hpf Urine Mucus (None) /hpf 04/26/21 Range/Units 16:43 RBC (4.30-5.90) m/uL Hgb (13.0-17.5) gm/dL Hct (39.0-53.0) % MCV (80.0-100.0) fL MCH (25.0-35.0) pg Lymphocytes # (1.0-4.8) k/uL APTT (22.0-30.0) sec Sodium (137-145) mmol/L BUN (9-20) mg/dL Glucose (74-99) mg/dL Albumin (3.5-5.0) g/dL Urine Protein 1+ H (Negative) Urine Bacteria Rare H (None) /hpf Urine Mucus Rare H (None) /hpf Chest x-ray: report reviewed CT scan - chest: report reviewed Assessment and Plan (1) Pneumonia Narrative/Plan: Patient is being treated for pneumonia at this time. We'll continue to follow up with him and see how he does. His oxygen needs from baseline, which is about 2 L, is up to 6 L. Current Visit: Yes Status: Acute Priority: High Code(s): J18.9 - PNEUMONIA, UNSPECIFIED ORGANISM SNOMED Code(s): 464777602 (2) Tongue carcinoma Narrative/Plan: Patient's treatment will be pushed out to the new year as he is treated for suspected pneumonia. Current Visit: Yes Status: Chronic Priority: Medium Code(s): C02.9 - MALIGNANT NEOPLASM OF TONGUE, UNSPECIFIED SNOMED Code(s): 567610882 Plan: Patient is complaining of poor appetite. Dr. Bell discussed Marinol with him. Patient is interested in trying. We will try while he is inpatient. Mild leukocytosis, likely secondary to infection. Mild anemia, secondary to treatment and likely poor oral intake. Transfuse for hemoglobin less than 7+ patient is symptomatic. We'll check the office to see if the patient has been worked up previously for iron/nutritional deficiencies. Doctor attests: I performed a history and physical examination of this patient, developed impression and plan of care. Discussed with dictator. I agree with dictators note, documented as a scribe.
--- NOTE | 2021-04-27 17:51 | ECHOF ---
Referral Reason:dyspnea MEASUREMENTS -------- HEIGHT: 177.8 cm WEIGHT: 59.0 kg BP: 122/60 RVIDd: 4.8 cm (< 3.3) IVSd: 1.3 cm (0.6 - 1.1) LVIDd: 5.5 cm (3.9 - 5.3) LVPWd: 1.5 cm (0.6 - 1.1) IVSs: 1.7 cm LVIDs: 4.2 cm LVPWs: 1.8 cm LAESV Index (A-L): 34.86 ml/m Ao Diam: 2.7 cm (2.0 - 3.7) AV Cusp: 1.5 cm (1.5 - 2.6) LA Diam: 3.4 cm (2.7 - 3.8) MV E Frandy: 0.63 m/s MV DecT: 102 ms MV A Frandy: 1.11 m/s MV E/A Ratio: 0.57 RAP: 5.00 mmHg RVSP: 30.58 mmHg FINDINGS -------- Sinus rhythm. This was a technically adequate study. The left ventricular size is normal. There is mild concentric left ventricular hypertrophy. There is moderate global hypokinesis of LV . Overall left ventricular systolic function is mild-moderate ly impaired with, an EF between 40 - 45 %. The right ventricle is severely enlarged. LA is moderately dilated 34-39 ml/m2 The right atrium is mildly enlarged. Electronic pacemaker lead seen in the right atrial cavity. Interatrial and interventricular septum intact. There is no evidence of aortic regurgitation. There is no evidence of aortic stenosis. Moderate mitral regurgitation is present. Mild tricuspid regurgitation present. There is no evidence of pulmonary hypertension. The right v entricular systolic pressure, as measured by Doppler, is 30.58mmHg. There is no pulmonic regurgitation present. The aortic root size is normal. The inferior vena cava is mildly dilated. There is no pericardial effusion. CONCLUSIONS -------- 1. The left ventricular size is normal. 2. There is mild concentric left ventricular hypertrophy. 3. There is moderate global hypokinesis of LV . 4. Overall left ventricular systolic function is mild-moderately impaired with, an EF between 40 - 45 %. 5. LA is moderately dilated 34-39 ml/m2 6. The right atrium is mildly enlarged. 7. Moderate mitral regurgitation is present. 8. Mild tricuspid regurgitation present. 9. The inferior vena cava is mildly dilated. MOTEL CLERK: Hortensia Solano RDCS
[2021-04-27] MEDS ORDERED: AZITHROMYCIN 500 MG in SODIUM CHLORIDE 0.9% 250 ML IVPB SCH (18:00)
[2021-04-27] MEDS: MONTELUKAST 10 MG TAB PO SCH (20:47)
[2021-04-27] MEDS: ATORVASTATIN 20 MG TAB PO SCH (20:47)
[2021-04-27] MEDS: ASPIRIN 81 MG PO SCH (20:47)
[2021-04-28] MEDS: methylPREDNISolone SOD SUCCI 125 MG/2 ML VIAL IV SCH ×2 (06:08→13:12)
[2021-04-28 07:19] LABS: ALT 55 U/L (4-49); AST 44 U/L (17-59); African American GFR (CKD) >90 (>60 ml/min/1.73 sqM); Albumin 2.5 g/dL (3.5-5.0); Albumin/Globulin Ratio 0.9; Alkaline Phosphatase 68 U/L (38-126); Anion Gap 6 mmol/L; Blood Urea Nitrogen 32 mg/dL (9-20); Calcium 9.1 mg/dL (8.4-10.2); Carbon Dioxide 25 mmol/L (22-30); Chloride 106 mmol/L (98-107); Globulin 2.8 g/dL; Glucose 144 mg/dL (74-99); Non-African American GFR(CKD) 84 (>60 ml/min/1.73 sqM); Potassium 4.1 mmol/L (3.5-5.1); Sodium 137 mmol/L (137-145); Total Bilirubin 0.4 mg/dL (0.2-1.3); Total Protein 5.3 g/dL (6.3-8.2)
[2021-04-28] MEDS: PIPERACILLIN-TAZOBACTAM 3.375 GM in SODIUM CHLORIDE 0.9% 100 ML IVPB SCH (07:40)
[2021-04-28] MEDS: METOPROLOL SUCCINATE (ER) 25 MG TAB.ER.24H PO SCH (07:42)
[2021-04-28] MEDS: MULTIVITAMINS, THERA 1 EACH TAB PO SCH (07:42)
[2021-04-28] MEDS: IPRATROPIUM-ALBUTEROL 3 ML NEB INHALATION SCH ×2 (08:00→11:13)
--- NOTE | 2021-04-28 09:14 | P.CNPUL ---
History of Present Illness Consult date: 04/27/21 Reason for consult: dyspnea, cough Chief complaint: Generalized weakness tiredness shortness of breath History of present illness: Patient is a 81-year-old male well-known to me came into the hospital for 1 week of progressive tiredness weakness cough and phlegm production not feeling well patient recently started first cycle of chemotherapy on April 06 with carbo/CRYSTAL GRINDER/Tecentiq, patient is well-known to me with somewhat complex past medical history as noted below repeat bronchoscopy was offered outpatient setting patient felt not needed and did not show for follow-up Patient noticed a lump in the right neck 10/24. The been progressive in size and began causing difficulty in swallowing. He was seen by PCP 02/23. CT 02/25/20 showed irregular soft tissue at the right base of the tongue 2.5 x 1.6 cm, right neck mass was an enlarged submandibular node, 2.2 x 1.7 cm. He was referred to ENT, microlaryngoscopy 03/26/20 revealed irregular mucosa at the base of the tongue, no definite mass, multiple biopsies positive for invasive, moderately differentiated squamous cell carcinoma. Staging PET scan showed uptake in the primary site as well as the enlarged submandibular node. There was some nonspecific linear uptake in the right anterior chest wall and in the prostate. Patient had known elevated PSA, stable and being followed by Dr. Short. Patient was started on concurrent chemo/RT completing treatment 06/14/20. He continued to follow up and did well until PET scan 12/25 showed an area of uptake in a small node in the right neck and an area in the hilum of the liver. He was evaluated by ENT, al biopsies were negative and the findings in the lung were felt to be nonspecific. There was also a suspicious Hepatic node was suspicious. PSA was elevated a little from baseline at that time. He had a repeat FNA of the right neck node 01/06/21, now positive for squamous. 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 He had his first cycle of carbo/CRYSTAL GRINDER/tecentriq 04/06/21, he was due for cycle #2 on April 27 patient had been to Hospital for further evaluation and intervention treat, his chest x-ray significant for cardiomegaly and emphysematous changes infiltrate in left mid and lower lobe also possible infiltrate in the right lower lobe as well. Patie nt currently being treated with bronchodilators home medications Zosyn and Zithromax high-dose IV steroids, computed tomography scan of the chest revealed COPD-like changes bilateral lower lobe pneumonia more so on the left side compared right side extensive emphysema was also noted Review of Systems All systems: negative Past Medical History Past Medical History: Cancer, COPD, Hyperlipidemia, Hypertension, Prostate Disorder Additional Past Medical History / Comment(s): AAA, tongue cancer History of Any Multi-Drug Resistant Organisms: None Reported Past Surgical History: Joint Replacement, Pacemaker Additional Past Surgical History / Comment(s): tongue mass removed 03/26/20, [employer]tr[employer] Pacemaker Jun 2019, left knee replacement, 2 left knee surgeries, surgery for snoring. Past Anesthesia/Blood Transfusion Reactions: No Reported Reaction Type of Cardiac Device: Unknown Device Placement Date:: 06/16/19 Past Psychological History: No Psychological Hx Reported Smoking Status: Current every day smoker Past Alcohol Use History: Rare Additional Past Alcohol Use History / Comment(s): Smokes 1/2 PPD X 50 yrs. Past Drug Use History: None Reported - Past Family History family Family Medical History: No Reported History Medications and Allergies Home Medications Medication Instructions Recorded Confirmed Type Aspirin EC [Ecotrin Low Dose] 81 mg PO HS 06/16/19 04/26/21 History Tamsulosin [Flomax] 0.4 mg PO BID 06/16/19 04/26/21 History Budesonide-Formot 160-4.5 Mcg 2 puff INHALATION RT-DAILY 03/24/20 04/26/21 History [Symbicort 160-4.5 Mcg Inhaler] Multivitamins, Thera [Multivitamin 1 tab PO DAILY 03/24/20 04/26/21 History (formulary)] Simvastatin 40 mg PO HS 03/24/20 04/26/21 History Apricot Kernals Supplement 1 tab PO DAILY 04/26/21 04/26/21 History Docusate [Colace] 100 mg PO BID 04/26/21 04/26/21 History Ipratropium-Albuterol Nebulize 3 ml INHALATION RT-TID 04/26/21 04/26/21 History [Duoneb 0.5 mg-3 mg/3 ml Soln] Metoprolol Succinate (ER) [Toprol 50 mg PO HS 04/26/21 04/26/21 History Xl] Montelukast [Singulair] 10 mg PO DAILY 04/26/21 04/26/21 History Ondansetron [Zofran] 4 mg PO Q8HR PRN 04/26/21 04/26/21 History Allergies Allergy/AdvReac Type Severity Reaction Status Date / Time No Known Allergies Allergy Verified 04/26/21 18:33 Physical Exam Vitals: Vital Signs Temp Pulse Pulse Pulse Resp BP BP 04/27/21 15:34 76 04/27/21 15:24 76 04/27/21 11:37 97.4 F L 70 18 04/27/21 11:25 76 04/27/21 11:13 76 04/27/21 07:35 72 04/27/21 07:25 72 04/27/21 05:19 97.6 F 77 122/60 04/27/21 05:12 18 04/26/21 22:40 97.4 F L 64 18 138/65 04/26/21 21:27 98.2 F 79 18 132/65 04/26/21 19:34 71 04/26/21 19:24 76 04/26/21 17:21 68 18 114/69 BP Pulse Ox 04/27/21 15:34 04/27/21 15:24 04/27/21 11:37 135/67 96 04/27/21 11:25 04/27/21 11:13 04/27/21 07:35 04/27/21 07:25 04/27/21 05:19 93 L 04/27/21 05:12 04/26/21 22:40 93 L 04/26/21 21:27 94 L 04/26/21 19:34 04/26/21 19:24 04/26/21 17:21 92 L Intake and Output 04/27/21 04/27/21 04/27/21 06:59 14:59 22:59 Output Total 550 200 Balance -550 -200 Output: Urine 550 200 Other: Voiding Method Toilet # Voids 1 1 Weight 58.967 kg - Constitutional General appearance: average body habitus, cooperative, disheveled - EENT Eyes: PERRLA ENT: normal oropharynx Ears: bilateral: normal - Neck Neck: lymphadenopathy Carotids: bilateral: upstroke normal Thyroid: bilateral: normal size - Respiratory Respiratory: bilateral: diminished - Cardiovascular Rhythm: regular Heart sounds: normal: S1, S2 - Gastrointestinal General gastrointestinal: normal bowel sounds - Integumentary Integumentary: decreased turgor - Neurologic Neurologic: CNII-XII intact - Musculoskeletal Musculoskeletal: gait normal, generalized weakness, strength equal bilaterally - Psychiatric Psychiatric: A&O x's 3, appropriate affect, intact judgment & insight Results - Laboratory Findings CBC and BMP: 04/27/21 16:36 04/28/21 06:28 PT/INR, D-dimer PT 10.6 sec (9.0-12.0) 04/26/21 15:25 INR 1.0 (<1.2) 04/26/21 15:25 Abnormal lab findings: Abnormal Labs 04/26/21 04/26/21 04/26/21 15:25 15:25 15:25 RBC 2.39 L Hgb 8.9 L Hct 25.4 L MCV 106.2 H MCH 37.3 H Lymphocytes # 0.3 L APTT 20.3 L Sodium 133 L BUN 46 H Glucose 112 H Albumin 3.2 L Urine Protein Urine Bacteria Urine Mucus 04/26/21 16:43 RBC Hgb Hct MCV MCH Lymphocytes # APTT Sodium BUN Glucose Albumin Urine Protein 1+ H Urine Bacteria Rare H Urine Mucus Rare H - Diagnostic Findings Chest x-ray: report reviewed, image reviewed CT scan - chest: report reviewed, image reviewed (Finding as noted above) Assessment and Plan Assessment: Bilateral pneumonia left more than the right Sepsis due to pneumonia Acute hypoxic respiratory failure Multiple primary tumors and no region including 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
--- NOTE | 2021-04-28 09:17 | P.PN ---
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 04/28/2021, patient seen eval examined during the rounds labs reviewed medications reviewed care plan discussed, patient remains short of breath severity slightly better, on supplemental oxygen with 5 L nasal cannula, appetite slowly improving, cough and congestion better than before, Patient is a 81-year-old male well-known to me came into the hospital for 1 week of progressive tiredness weakness cough and phlegm production not feeling well patient recently started first cycle of chemotherapy on April 06 with carbo/RELOCATION SPECIALIST/Tecentiq, patient is well-known to me with somewhat complex past medical history as noted below repeat bronchoscopy was offered outpatient setting patient felt not needed and did not show for follow-up Patient noticed a lump in the right neck 10/24. The been progressive in size and began causing difficulty in swallowing. He was seen by PCP 02/23. CT 02/25/20 showed irregular soft tissue at the right base of the tongue 2.5 x 1.6 cm, right neck mass was an enlarged submandibular node, 2.2 x 1.7 cm. He was referred to ENT, microlaryngoscopy 03/26/20 revealed irregular mucosa at the base of the tongue, no definite mass, multiple biopsies positive for invasive, moderately differentiated squamous cell carcinoma. Staging PET scan showed uptake in the primary site as well as the enlarged submandibular node. There was some nonspecific linear uptake in the right anterior chest wall and in the prostate. Patient had known elevated PSA, stable and being followed by Dr. Short. Patient was started on concurrent chemo/RT completing treatment 06/14/20. He continued to follow up and did well until PET scan 12/25 showed an area of uptake in a small node in the right neck and an area in the hilum of the liver. He was evaluated by ENT, al biopsies were negative and the findings in the lung were felt to be nonspecific. There was also a suspicious Hepatic node was suspicious. PSA was elevated a little from baseline at that time. He had a repeat FNA of the right neck node 01/06/21, now positive for squamous. 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 He had his first cycle of carbo/RELOCATION SPECIALIST/tecentriq 04/06/21, he was due for cycle #2 on April 27 patient had been to Hospital for further evaluation and intervention treat, his chest x-ray significant for cardiomegaly and emphysematous changes infiltrate in left mid and lower lobe also possible infiltrate in the right lower lobe as well. Patient currently being treated with bronchodilators home medications Zosyn and Zithromax high-dose IV steroids, computed tomography scan of the chest revealed COPD-like changes bilateral lower lobe pneumonia more so on the left side compared right side extensive emphysema was also noted Objective - Vital Signs Vital signs: Vital Signs Temp 97.6 F 04/28/21 04:26 Pulse 60 04/28/21 08:11 Resp 18 04/28/21 04:26 BP 145/85 04/28/21 04:26 Pulse Ox 99 04/28/21 04:26 Intake & Output 04/27/21 04/28/21 04/28/21 18:59 06:59 18:59 Intake Total 800 1250 Output Total 200 650 Balance 600 600 Weight 58.967 kg Intake: Intake, IV Titration 800 1250 Amount Azithromycin 500 mg In 250 Sodium Chloride 0.9% 250 ml @ 250 mls/hr IVPB Q24H [facility] Rx#:[id number] Piperacillin-Tazobactam 3 200 100 .375 gm In Sodium Chloride 0.9% 100 ml @ 25 mls/hr IVPB Q8HR [facility] Rx# :[id number] Sodium Chloride 0.9% 1, 600 900 000 ml @ 75 mls/hr IV . [id number] [facility] Rx#:[id number] Output: Urine 200 650 Other: Voiding Method Toilet Urinal # Voids 1 - Exam - Constitutional General appearance: average body habitus, cooperative, disheveled - EENT Eyes: PERRLA ENT: normal oropharynx Ears: bilateral: normal - Neck Neck: lymphadenopathy Carotids: bilateral: upstroke normal Thyroid: bilateral: normal size - Respiratory Respiratory: bilateral: diminished - Cardiovascular Rhythm: regular Heart sounds: normal: S1, S2 - Gastrointestinal General gastrointestinal: normal bowel sounds - Integumentary Integumentary: decreased turgor - Neurologic Neurologic: CNII-XII intact - Musculoskeletal Musculoskeletal: gait normal, generalized weakness, strength equal bilaterally - Psychiatric Psychiatric: A&O x's 3, appropriate affect, intact judgment & insight - Labs CBC & Chem 7: 04/27/21 16:36 04/28/21 06:28 Labs: Abnormal Lab Results - Last 24 Hours (Table) 04/27/21 04/28/21 Range/Units 16:36 06:28 WBC 11.5 H (3.8-10.6) k/uL RBC 2.26 L (4.30-5.90) m/uL Hgb 8.5 L (13.0-17.5) gm/dL Hct 25.2 L (39.0-53.0) % MCV 111.7 H D (80.0-100.0) fL MCH 37.5 H (25.0-35.0) pg Neutrophils # 10.8 H (1.3-7.7) k/uL Lymphocytes # 0.3 L (1.0-4.8) k/uL Macrocytosis Marked A BUN 32 H (9-20) mg/dL Glucose 144 H (74-99) mg/dL ALT 55 H (4-49) U/L Total Protein 5.3 L (6.3-8.2) g/dL Albumin 2.5 L (3.5-5.0) g/dL Microbiology - Last 24 Hours (Table) 04/26/21 18:10 Blood Culture - Preliminary Blood No Growth after 24 hours 04/26/21 18:28 Blood Culture - Preliminary Blood No Growth after 24 hours Assessment and Plan Assessment: Bilateral pneumonia left more than the right Sepsis due to pneumonia Acute hypoxic respiratory failure Multiple primary tumors and no region including 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
--- NOTE | 2021-04-28 10:33 | P.PN ---
Subjective Progress Note Date: 04/28/21 Principal diagnosis: Generalized weakness and fatigue The patient is an 81-year-old gentleman with permanent pacemaker as well as history of cancer currently on chemotherapy with requested to see for further evaluation of heart failure. The patient was seen this morning. He is feeling better after he received an IV hydration. He was not in any overt congestive heart failure when he was seen yesterday. From a cardiovascular standpoint overview the patient can be discharged home and will follow-up with the patient as an outpatient. No need for any further cardiac workup at this point Objective - Vital Signs Vital signs: Vital Signs Temp 97.6 F 04/28/21 04:26 Pulse 60 04/28/21 08:11 Resp 18 04/28/21 04:26 BP 145/85 04/28/21 04:26 Pulse Ox 99 04/28/21 04:26 Intake & Output 04/27/21 04/28/21 04/28/21 18:59 06:59 18:59 Intake Total 800 1250 Output Total 200 650 Balance 600 600 Weight 58.967 kg Intake: Intake, IV Titration 800 1250 Amount Azithromycin 500 mg In 250 Sodium Chloride 0.9% 250 ml @ 250 mls/hr IVPB Q24H [facility] Rx#:[id number] Piperacillin-Tazobactam 3 200 100 .375 gm In Sodium Chloride 0.9% 100 ml @ 25 mls/hr IVPB Q8HR [facility] Rx# :[id number] Sodium Chloride 0.9% 1, 600 900 000 ml @ 75 mls/hr IV . [id number] [facility] Rx#:[id number] Output: Urine 200 650 Other: Voiding Method Toilet Urinal # Voids 1 - Constitutional General appearance: Present: no acute distress - Respiratory Respiratory: bilateral: diminished - Cardiovascular Heart sounds: normal: S1, S2 - Labs CBC & Chem 7: 04/27/21 16:36 04/28/21 06:28 Labs: Abnormal Lab Results - Last 24 Hours (Table) 04/27/21 04/28/21 Range/Units 16:36 06:28 WBC 11.5 H (3.8-10.6) k/uL RBC 2.26 L (4.30-5.90) m/uL Hgb 8.5 L (13.0-17.5) gm/dL Hct 25.2 L (39.0-53.0) % MCV 111.7 H D (80.0-100.0) fL MCH 37.5 H (25.0-35.0) pg Neutrophils # 10.8 H (1.3-7.7) k/uL Lymphocytes # 0.3 L (1.0-4.8) k/uL Macrocytosis Marked A BUN 32 H (9-20) mg/dL Glucose 144 H (74-99) mg/dL ALT 55 H (4-49) U/L Total Protein 5.3 L (6.3-8.2) g/dL Albumin 2.5 L (3.5-5.0) g/dL Microbiology - Last 24 Hours (Table) 04/26/21 18:10 Blood Culture - Preliminary Blood No Growth after 24 hours 04/26/21 18:28 Blood Culture - Preliminary Blood No Growth after 24 hours Assessment and Plan Assessment: Assessment #1 generalized weakness and fatigue #2 dehydration probably related to decreased oral intake #3 permanent pacemaker implantation #4 history of cancer currently on chemotherapy #5 multiple comorbid conditions Plan #1 continue the current medical regimen #2 the patient can be discharged home
[2021-04-28 11:58] VITALS: BP 159/71; PULSE 85; TEMP 97.4
[2021-04-28] MEDS: SODIUM CHLORIDE 0.9% 1,000 ML IV SCH (13:13)
--- NOTE | 2021-04-28 15:20 | CDI ---
Documentation Clarification Form Date: 04/28/2021 03:05:05 PM From: Ceci Rojo RN, CCDS Admit Date: 04/26/2021 05:04:00 PM Patient Name: Omega Troy Visit Number: [id number] Discharge Date: ATTENTION: The Clinical Documentation Specialists (CDI) and [facility] Coding Staff appreciate your assistance in clarifying documentation. Please respond to the clarification below the line at the bottom and electronically sign. The CDI & [facility] Coding staff will review the response and follow-up if needed. Please note: Queries are made part of the Legal Health Record. If you have any questions, please contact the author of this message via ITS. Dr. Payam Ramos The Registered Dietitian assessment on , has unintended weight loss, HI/P assessment; he is thin and cachectic. Based on this information and the findings below, is there an additional diagnosis that is clinically appropriate for this patient? History/Risk Factors: Tongue ca on chemotherapy, dehydration, lung cancer, Hypertension, COPD Clinical Indicators: 81-year-old male who is currently undergoing chemotherapy for throat, tongue cancer reports difficulty chewing, unintentional weight loss. 04/26 labs: HGB 8.9 Na 133, BUN 46, Albumin 3.2, 2.5 RD Consult Assessment: underweight, moderate clavicle wasting Current BMI: 18.7 Insufficient energy intake: Yes Weight Loss: Yes, dramatic wt. loss and has been steady at 130 lbs. 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 [ ] Mild Protein-Calorie Malnutrition [ ] Moderate Protein-Calorie Malnutrition [ ] Severe Protein-Calorie Malnutrition [ ] Other condition, please specify [ ] Unable to Determine (Template Last Revised: July 2020) MTDD
--- NOTE | 2021-04-28 16:30 | P.PN ---
Subjective Progress Note Date: 04/28/21 Principal diagnosis: Dehydration, pneumonia In f/u pt is feeling good, eating, drinking, denies fever, diarrhea or pain. Anxious to go home Objective - Vital Signs Vital signs: Vital Signs Temp 97.4 F L 04/28/21 11:49 Pulse 85 04/28/21 11:49 Resp 18 04/28/21 11:49 BP 159/71 04/28/21 11:49 Pulse Ox 91 L 04/28/21 11:49 Intake & Output 04/27/21 04/28/21 04/28/21 18:59 06:59 18:59 Intake Total 800 1250 120 Output Total 200 650 Balance 600 600 120 Weight 58.967 kg 58.967 kg Intake: Intake, IV Titration 800 1250 Amount Azithromycin 500 mg In 250 Sodium Chloride 0.9% 250 ml @ 250 mls/hr IVPB Q24H [facility] Rx#:[id number] Piperacillin-Tazobactam 3 200 100 .375 gm In Sodium Chloride 0.9% 100 ml @ 25 mls/hr IVPB Q8HR [facility] Rx# :[id number] Sodium Chloride 0.9% 1, 600 900 000 ml @ 75 mls/hr IV . [id number] [facility] Rx#:[id number] Oral 120 Output: Urine 200 650 Other: Voiding Method Toilet Urinal # Voids 1 - Constitutional General appearance: Present: average body habitus, cooperative, no acute distress - EENT Eyes: Present: anicteric sclerae, EOMI ENT: Present: hearing grossly normal - Respiratory Respiratory: bilateral: CTA - Cardiovascular Rhythm: regular Heart sounds: normal: S1, S2 Abnormal Heart Sounds: Absent: systolic murmur, diastolic murmur, rub, S3 Gallop, S4 Gallop, click, other - Peripheral edema leg Peripheral Edema: bilateral: None - Gastrointestinal General gastrointestinal: Present: normal bowel sounds, soft - Integumentary Integumentary: Present: normal - Neurologic Neurologic: Present: CNII-XII intact - Musculoskeletal Musculoskeletal: Present: generalized weakness, strength equal bilaterally - Psychiatric Psychiatric: Present: A&O x's 3, appropriate affect, intact judgment & insight - Labs CBC & Chem 7: 04/27/21 16:36 04/28/21 06:28 Labs: Abnormal Lab Results - Last 24 Hours (Table) 04/27/21 04/28/21 Range/Units 16:36 06:28 WBC 11.5 H (3.8-10.6) k/uL RBC 2.26 L (4.30-5.90) m/uL Hgb 8.5 L (13.0-17.5) gm/dL Hct 25.2 L (39.0-53.0) % MCV 111.7 H D (80.0-100.0) fL MCH 37.5 H (25.0-35.0) pg Neutrophils # 10.8 H (1.3-7.7) k/uL Lymphocytes # 0.3 L (1.0-4.8) k/uL Macrocytosis Marked A BUN 32 H (9-20) mg/dL Glucose 144 H (74-99) mg/dL ALT 55 H (4-49) U/L Total Protein 5.3 L (6.3-8.2) g/dL Albumin 2.5 L (3.5-5.0) g/dL Microbiology - Last 24 Hours (Table) 04/26/21 18:10 Blood Culture - Preliminary Blood No Growth after 24 hours 04/26/21 18:28 Blood Culture - Preliminary Blood No Growth after 24 hours Assessment and Plan (1) Pneumonia Narrative/Plan: Patient was treated for pneumonia. Feels better then on admit Status: Acute Priority: High Code(s): J18.9 - PNEUMONIA, UNSPECIFIED ORGANISM SNOMED Code(s): 558308527 (2) Tongue carcinoma Narrative/Plan: Current admit not felt to be related his cancer or exacerbation of cancer. Patient's chemo treatment moved out to 05/11 @ 1pm. This will give pt recovery time post hospitalization. Status: Chronic Priority: Medium Code(s): C02.9 - MALIGNANT NEOPLASM OF TONGUE, UNSPECIFIED SNOMED Code(s): 438008897 Plan: Patient complained of poor appetite. Started Marinol 2.5mg BID. He had no c/o after starting, will prescribe outpt and check co-pay. Mild anemia, secondary to treatment and likely poor oral intake. Will cont to monitor outpt. Transfuse for hemoglobin less than 7+ patient is symptomatic.
--- NOTE | 2021-04-29 11:05 | PN ---
PROGRESS NOTE ADDENDUM: Protein-calorie malnutrition, severe nature. MMODL / IJN: [id number] /
--- NOTE | 2021-05-03 09:46 | CDI ---
Documentation Clarification Form Date: 05/03/2021 09:14:00 AM From: Estrella Brooks Admit Date: 04/26/2021 05:04:00 PM Patient Name: Omega Troy Visit Number: [id number] Discharge Date: 04/28/2021 03:19:00 PM ATTENTION: The Clinical Documentation Specialists (CDI) and [facility] Coding Staff appreciate your assistance in clarifying documentation. Please respond to the clarification below the line at the bottom and electronically sign. The CDI & [facility] Coding staff will review the response and follow-up if needed. Please note: Queries are made part of the Legal Health Record. If you have any questions, please contact the author of this message via ITS. Dr. Payam Ramos Per pulmonary consult and 04/28 PN Sepsis due to pneumonia is documented. Please clarify if patient had sepsis or was it ruled out. History/Risk Factors: patient with pneumonia and severe PCM Clinical Indicators: WBC: 7.3 - 11.5 Lactic acid: 1.6 Vitals signs: 98.3 F, 61 bpm, 90/52, 95% RA Treatment: Bronchodialators Zosyn Zithromax, high does steroidds Broad Spectrum IV antibiotics, ID Consult: Antibiotics: IV Bolus: In your professional opinion, please clarify if these findings signify one of the following conditions: [ ] Sepsis POA [ ] Sepsis, Not POA [ ] Sepsis ruled out [ ] Other [ ] Unable to determine SIRS Criteria: 2 or more of the following may indicate SIRS -Temperature < 96.8F (36C) or > 101.0F (38.3C) -Heart Rate > 90 bpm -Respiratory Rate > 20 breaths/min or PaCO2 < 32 mmHg -White Blood Cell Count > 12,000 or < 4,000 cells/mm3 or > 10% bands MTDD
--- NOTE | 2021-05-06 10:51 | PN ---
PROGRESS NOTE ADDENDUM TO PROGRESS NOTE: Sepsis ruled in. MMODL / IJN: [id number] /
== END 2021-04-28 15:19 | disposition home or self-care (01) | DRG 871 ==
LOC: EC 13:59 → 5NMEDONC 17:04
PROVIDERS: ADMIT Family Medicine; ATTEND Family Medicine
DX: A41.9 Sepsis, unspecified organism (principal); J18.9 Pneumonia, unspecified organism; E43 Unspecified severe protein-calorie malnutrition; J96.01 Acute respiratory failure with hypoxia; E87.1 Hypo-osmolality and hyponatremia; I42.9 Cardiomyopathy, unspecified; Z68.1 Body mass index [BMI] 19.9 or less, adult; R64 Cachexia; C78.7 Secondary malignant neoplasm of liver and intrahepatic bile duct; C77.0 Secondary and unspecified malignant neoplasm of lymph nodes of head, face and neck; I44.2 Atrioventricular block, complete; C02.9 Malignant neoplasm of tongue, unspecified; D64.9 Anemia, unspecified; E78.5 Hyperlipidemia, unspecified; E86.0 Dehydration; F17.210 Nicotine dependence, cigarettes, uncomplicated; I11.0 Hypertensive heart disease with heart failure; Z71.3 Dietary counseling and surveillance; I50.9 Heart failure, unspecified; J43.9 Emphysema, unspecified; N40.0 Benign prostatic hyperplasia without lower urinary tract symptoms; R13.10 Dysphagia, unspecified; Z20.822 Contact with and (suspected) exposure to COVID-19; Z79.51 Long term (current) use of inhaled steroids; Z79.82 Long term (current) use of aspirin; Z79.899 Other long term (current) drug therapy; Z82.49 Family history of ischemic heart disease and other diseases of the circulatory system; Z85.118 Personal history of other malignant neoplasm of bronchus and lung; Z85.810 Personal history of malignant neoplasm of tongue; Z92.21 Personal history of antineoplastic chemotherapy; Z96.652 Presence of left artificial knee joint; Z95.0 Presence of cardiac pacemaker; Z86.79 Personal history of other diseases of the circulatory system; Z98.890 Other specified postprocedural states
CPT/HCPCS: 36415; 71046; 71250; 80053; 81001; 83605; 83735; 83880; 84443; 84484; 85025; 85610; 85730; 87040; 87635; 93005; 93306; 94640; 96360; 99285

== ENCOUNTER → 2021-05-26 | Outpatient (CLI) | payer MEDICARE ==
[2021-05-26 11:32] LABS: African American GFR (CKD) >90 (>60 ml/min/1.73 sqM); Blood Urea Nitrogen 14 mg/dL (9-20); Non-African American GFR(CKD) 83 (>60 ml/min/1.73 sqM)
--- NOTE | 2021-05-26 12:56 | CT ---
EXAMINATION TYPE: CT ChestAbdPelvis w con DATE OF EXAM: 05/26/2021 COMPARISON: Prior PET/CT September 10, 2020. Most recent chest CT April 26, 2021 and older CTs HISTORY: follow up lung/tongue cancer CT DLP: 862.7 mGycm. Automated Exposure Control for Dose Reduction was Utilized. CONTRAST: CT scan of the thorax, abdomen and pelvis is performed with IV Contrast, patient injected with 100 mL of Isovue 300. FINDINGS: LUNGS: Moderate underlying emphysematous change is redemonstrated greatest in the upper lungs. Stable tubular-shaped density measuring 3.9 x 0.7 cm anterior left mid lung axial image 35 corresponds to a sumit of mild hypermetabolic uptake on PET/CT fairly stable. Posterior triangular shaped consolidation measuring 5.6 x 3.9 cm on Current study. There is more diffuse irregular consolidation greater in prominence on CT April 26, 2021. Right lung remains clear. MEDIASTINUM: There are no greater than 1 cm hilar or mediastinal lymph nodes. No cardiomegaly or pe ricardial effusion is seen. Dual lead pacemaker is redemonstrated. LIVER/GB: Persistent suspicious heterogeneous hypodense area possible mass in the caudate lobe of the liver measuring 6.0 cm long axis axial image 68 not significantly changed in appearance from most re cent CT abdomen study in January 2021. This corresponds to the area of hypermetabolic uptake on pearl or PET/CT PANCREAS: No significant abnormality is seen. SPLEEN: No significant abnormality is seen. ADRENALS: No significant abnormality is seen. 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 Just superior to this along the lateral aspect there is enl arging suspicious heterogeneous enhancing partially exophytic right renal mass measuring 3.2 x 2.6 cm axial image 74. Renal cell carcinoma is suspected. BOWEL: Patient has little intra-abdominal fat. Oral contrast reaches the cecum. No suspicious small l ower large bowel dilatation. Moderate colonic fecal prominence on current study Prostate: Slightly large in size similar to prior. LYMPH NODES: No new greater than 1cm abdominal lymph nodes are appreciated. OSSEOUS STRUCTURES: Moderate to severe axial joint space loss in both hips with additional moderate s purring left greater than right is redemonstrated. OTHER: There is infrarenal aortobiiliac stent graft redemonstrated. Postcontrast images show patency without suspicious extraluminal enhancement to suggest endoleak. There is persistent ventral wall her gwen now containing fat and slightly more prominent diffuse mesenteric fluid. IMPRESSION: 1. Stable nonspecific anterior left mid lung lesion. Posterior to this there is persistent focal cons olidation and/or atelectasis improved from most recent CT. No enlarging or new mass in the thorax. 2. Enlarging lateral right mid renal enhancing solid lesion just above angiomyolipoma strongly suspic ious for focal renal cell carcinoma. 3. Persistent heterogeneous mass in the caudate lobe corresponding to PET/CT abnormality felt to refl ect primary or metastatic malignancy is fairly stable from most recent CT abdomen study.
--- NOTE | 2021-05-26 13:04 | CT ---
EXAMINATION TYPE: CT soft tissue neck w con DATE OF EXAM: 05/26/2021 HISTORY: follow up lung/tongue cancer COMPARISON: CT neck February 18, 2021 and older study February 25, 2020 CT DLP: 263 mGycm. Automated Exposure Control for Dose Reduction was Utilized. TECHNIQUE: CT scan of the neck is performed with IV Contrast, patient injected with 100 mL of Isovue 300, axial images are obtained, coronal and sagittal reformatted images are reviewed. FINDINGS: Airway: Heterogeneous oval enhancing mass in the right tongue base on most recent CT is not clearly s een on current study. There is increased inferior extending air noted. Abnormal lymph node in the right neck on prior study at this level also is not clearly identified to accurately measure. Parotid/submandibular glands: No gross abnormality seen. Carotid/Vascular Structures: Moderate to severe calcified plaque carotid bulb level redemonstrated wi thout significant stenosis . Osseous Structures: Loss of normal cervical curvature with moderate disc space narrowing C5-C6 and C6 -C7 levels redemonstrated. Other: No new greater than 1 cm neck adenopathy clearly seen. Streak artifact from cavitary fillings and crowns in the bilateral teeth makes evaluation at level of the oral cavity slightly suboptimal si milar to prior studies. Incidental mild mucosal thickening in the inferior left maxillary sinus. IMPRESSION: Local Complete positive treatment response to most recent neck CT is felt present but can be confirmed with repeat PET CT if desired.
== END | disposition home or self-care (01) ==
LOC: RADCTMAIN 10:00
PROVIDERS: ATTEND Internal Medicine Hematology & Oncology
DX: C02.9 Malignant neoplasm of tongue, unspecified (principal); C34.90 Malignant neoplasm of unspecified part of unspecified bronchus or lung; N28.89 Other specified disorders of kidney and ureter; R91.8 Other nonspecific abnormal finding of lung field; K76.89 Other specified diseases of liver
CPT/HCPCS: 82565; 84520; 70491; 71260; 74177; 36415; Q9967

== ENCOUNTER 2021-06-27 09:26 | Day surgery (SDC) | payer MEDICARE ==
[2021-06-24 08:48] VITALS: BMI 19.2
[~2021-06-27 09:26] MED LIST changes: -ACETAMINOPHEN IV (For NPO) 1,000 MG in EMPTY BAG 1 BAG IVPB ONE; +ACETAMINOPHEN TAB 500 MG TAB PO PRN; -DEXAMETHASONE SOD PHOSPHATE 10 MG/ML 1 ML VIAL ONE; -DEXAMETHASONE SOD PHOSPHATE 4 MG/ML 1 ML VIAL IV ONE; +HEPARIN SODIUM,PORCINE/PF 5,000 UNIT/0.5 ML SYRINGE SQ PRN; -LACTATED RINGERS 1,000 ML IV ONE; -LACTATED RINGERS 1,000 ML IV SCH; -LIDOCAINE 1% (10MG/ML) FOR IV START INTRADERMA ONE; +LIDOCAINE 1% (10MG/ML) FOR IV START INTRADERMA PRN; -LIDOCAINE 1% INJ 10MG/ML (20 ML MDV) ONE; -ONDANSETRON 4 MG/2 ML VIAL IVP ONE; -ONDANSETRON 4 MG/2 ML VIAL ONE; -PHENYLEPHRINE 10 MG/ML VIAL ONE; -PROPOFOL 10 MG/ML 20 ML VIAL IV ONE; -SUCCINYLCHOLINE CHLORIDE 100 MG/5 ML SYR IV ONE; -ceFAZolin 3 GM in SODIUM CHLORIDE 0.9% 100 ML IVPB ONE; -ePHEDrine SULFATE/0.9% NACL/PF 50 MG/5 ML SYRINGE IV ONE; -fentaNYL (PF) 50 MCG/ML 2 ML AMP ONE
[2021-06-27] MEDS: LACTATED RINGERS 1,000 ML IV SCH ×2 (10:33→11:24)
[2021-06-27] MEDS ORDERED: ONDANSETRON 4 MG/2 ML VIAL ONE (10:35)
[2021-06-27] MEDS ORDERED: DEXAMETHASONE SOD PHOSPHATE 4 MG/ML 1 ML VIAL IVP ONE (10:37)
--- NOTE | 2021-06-27 10:58 | P.GSHP ---
History of Present Illness H&P Date: 06/27/21 Chief Complaint: History of tongue cancer Is an 81-year-old male who states he has history of tongue cancer. Patient is today for Port-A-Cath insertion. Past Medical History Past Medical History: Cancer, COPD, Hyperlipidemia, Hypertension, Prostate Disorder Additional Past Medical History / Comment(s): AAA, tongue cancer History of Any Multi-Drug Resistant Organisms: None Reported Past Surgical History: Joint Replacement, Orthopedic Surgery, Pacemaker Additional Past Surgical History / Comment(s): tongue mass removed 03/26/20, M edtronic Pacemaker Jun 2019, left knee replacement, 2 left knee surgeries, "surgery for snoring". Past Anesthesia/Blood Transfusion Reactions: No Reported Reaction Type of Cardiac Device: Unknown Device Placement Date:: 06/16/19 Past Psychological History: No Psychological Hx Reported Smoking Status: Current some day smoker Past Alcohol Use History: Rare Past Drug Use History: None Reported - Past Family History family Family Medical History: No Reported History Medications and Allergies Home Medications Medication Instructions Recorded Confirmed Type Aspirin EC [Ecotrin Low Dose] 81 mg PO HS 06/16/19 06/27/21 History Budesonide-Formot 160-4.5 Mcg 2 puff INHALATION BID 03/24/20 06/27/21 History [Symbicort 160-4.5 Mcg Inhaler] Multivitamins, Thera [Multivitamin 1 tab PO DAILY 03/24/20 06/27/21 History (formulary)] Metoprolol Succinate (ER) [Toprol 50 mg PO QAM 04/26/21 06/27/21 History XL] Dronabinol [Marinol] 2.5 mg PO AC-BID 06/23/21 06/27/21 History Levothyroxine Sodium [Synthroid] 100 mcg PO QAM 06/23/21 06/27/21 History Tamsulosin [Flomax] 0.4 mg PO BID 06/24/21 06/27/21 History Allergies Allergy/AdvReac Type Severity Reaction Status Date / Time No Known Allergies Allergy Verified 06/27/21 10:01 Surgical - Exam Vital Signs Temp Pulse Resp BP Pulse Ox 96.9 F L 90 18 137/65 97 06/27/21 10:11 06/27/21 10:11 06/27/21 10:11 06/27/21 10:11 06/27/21 10:11 - General well developed, well nourished, no distress - Eyes PERRL - ENT normal pinna - Neck no masses - Respiratory normal expansion - Cardiovascular Rhythm: regular - Abdomen Abdomen: soft, non tender Assessment and Plan Assessment: History of tongue cancer. We'll perform Port-A-Cath placement.
[2021-06-27] MEDS ORDERED: PROPOFOL 10 MG/ML 20 ML VIAL IV ONE (11:20)
[2021-06-27] MEDS ORDERED: MIDAZOLAM 2 MG/2 ML VIAL ONE (11:20)
[2021-06-27] MEDS ORDERED: PHENYLEPHRINE-0.9% NACL SYG 1,000 MCG/10 ML SYRINGE ONE (11:20)
[2021-06-27] MEDS ORDERED: KETAMINE 10 MG/ML 20 ML VIAL ONE (11:20)
[2021-06-27] MEDS ORDERED: fentaNYL (PF) 50 MCG/ML 2 ML AMP ONE (11:20)
[2021-06-27] MEDS ORDERED: SODIUM CHLORIDE 0.9% 100 ML with ceFAZolin 2,000 MG IV ONE ×2 (11:56)
[2021-06-27] MEDS ORDERED: BUPIVACAINE (PF) 0.25% 30 ML VIAL SQ ONE ×2 (11:57)
[2021-06-27] MEDS ORDERED: HEPARIN SODIUM,PORCINE 100 UNIT/ML 5 ML VIAL IV ONE (11:58)
[2021-06-27] MEDS ORDERED: IOPAMIDOL-370 50ML BTL IRRIGATION ONE ×2 (12:04)
[2021-06-27] MEDS ORDERED: LACTATED RINGERS 1,000 ML IV ONE (12:41)
--- NOTE | 2021-06-27 13:25 | FL ---
EXAMINATION TYPE: FL guided central line placemt HISTORY: Fluoroscopy time Impression: 1. Fluoroscopy support provided to the referring physician.
[2021-06-27 13:32] VITALS: TEMP 97.3
--- NOTE | 2021-06-27 13:36 | XR ---
EXAMINATION TYPE: XR chest 1V portable DATE OF EXAM: 06/27/2021 COMPARISON: 04/26/2021 HISTORY: Mediport insertion TECHNIQUE: Single frontal view of the chest is obtained. FINDINGS: Bilateral patchy areas of infiltrate are seen with underlying COPD and pleural thickening or small effusion. Atherosclerotic change aorta and cardiac device noted. Right-sided Mediport seen w ith tip overlying the SVC with no sizable pneumothorax. Diffuse osteopenia and arthropathy of the batsheva ulders. IMPRESSION: 1. COPD with bilateral infiltrate and small effusion correlate for pneumonia versus CHF
[2021-06-27 14:32] VITALS: BP 136/68; PULSE 81; RESP 16
--- NOTE | 2021-06-30 18:49 | P.OP ---
Date of Procedure: 06/30/21 Preoperative Diagnosis: Tongue cancer Postoperative Diagnosis: Tongue cancer Procedure(s) Performed: Insertion of right subclavian Port-A-Cath Anesthesia: LIZ Surgeon: Ismael Moreno Estimated Blood Loss (ml): 5 Pathology: none sent Condition: stable Disposition: PACU Description of Procedure: PROCEDURE: The patient was placed on the operating table in the supine position. She received MAC anesthetic. The [right] chest was prepped and draped in the usual sterile fashion. The skin underneath the right clavicle was anesthetized with 1% Xylocaine and using Seldinger technique, the right subclavian vein was cannulized. The wire was placed through the needle and positioned under fluoroscopy. Next, the needle was removed and the port site was anesthetized with 1% Xylocaine. Skin was incised with #15 blade and port pocket was made using blunt and sharp dissection. Following this the catheter was attached to the sport and the port was flushed. The port was positioned into the pocket site and was secured with 3-0 Vicryl suture. The catheter was then brought out through the wire site and then the dilator sheath was placed over the wire and the dilator and the wire were removed. The catheter was placed through the sheath and the sheath was removed. The port was flushed with hep-lock solution. Skin was closed with interrupted 3-0 Vicryl sutures. Steri-Strips were applied. The patient tolerated the procedure well. The patient was sent to recovery room for chest x-ray after the procedure.
== END 2021-06-27 14:55 | disposition home or self-care (01) ==
LOC: OR 09:26
PROVIDERS: ATTEND Surgery
DX: C34.92 Malignant neoplasm of unspecified part of left bronchus or lung (principal); I10 Essential (primary) hypertension; J44.9 Chronic obstructive pulmonary disease, unspecified; Z96.652 Presence of left artificial knee joint; Z98.890 Other specified postprocedural states; Z86.19 Personal history of other infectious and parasitic diseases; I73.9 Peripheral vascular disease, unspecified; F17.210 Nicotine dependence, cigarettes, uncomplicated; E78.5 Hyperlipidemia, unspecified; N42.9 Disorder of prostate, unspecified; I71.4 Abdominal aortic aneurysm, without rupture; Z95.0 Presence of cardiac pacemaker; Z79.82 Long term (current) use of aspirin; Z79.51 Long term (current) use of inhaled steroids; Z79.899 Other long term (current) drug therapy
CPT/HCPCS: 77001; 71045; 36561; C1788; J2250; J1642; J1100; J2405; J0690; J3010; J2370; J2704; Q9967; J1644